=== PATIENT | female | born 1980 | race Caucasian/White ===

== ENCOUNTER 2020-05-03 08:33 | Outpatient (REF) | payer OTHER, SELFPAY ==
[2020-05-03 11:46] LABS: Alanine Aminotransferase 13 U/L (0-31); Alkaline Phosphatase 52 U/L (39-117); Anion Gap 13 (12-20); Aspartate Amino Transferase 12 U/L (5-31); Bilirubin Total 0.4 mg/dL (0.0-1.0); Blood Urea Nitrogen 12 mg/dL (9-16); Carbon Dioxide 28 mmol/L (22-29); Chloride 101 mmol/L (96-108); Cholesterol 219 mg/dL; Estimated Glomerular Filt Rate > 60; Glucose Fasting 97 mg/dL (60-99); HDL Cholesterol 64 mg/dL; LDL Cholesterol Calculated 133 mg/dl; Sodium 138 mmol/L (135-145); Total Protein 7.1 g/dL (6.5-8.0); Triglycerides 113 mg/dL
[2020-05-03 11:48] LABS: Estimated Average Glucose 123 mg/dL; Hemoglobin A1c % 5.9 %
[2020-05-03 12:18] LABS: Microalbum/Creatinine Ratio Ur 4.4 ug/mg cr
[2020-05-03 13:46] LABS: TSH reflex Free T4 0.85 mIU/mL (0.32-4.0)
== END 2020-05-03 08:34 | disposition home or self-care (01) ==
LOC: HO.HMGCLDS 08:33
PROVIDERS: PCP Family Medicine; Visit Provider Family Medicine
DX: Z00.00 Encounter for general adult medical examination without abnormal findings (principal); I10 Essential (primary) hypertension; R73.01 Impaired fasting glucose
CPT/HCPCS: 80053; 80061; 82043; 83036; 84443

== ENCOUNTER 2021-05-24 13:04 | Outpatient (REF) | payer OTHER, SELFPAY ==
--- NOTE | ~2021-05-24 | XR_ITS ---
EXAMINATION: XR CHEST CLINICAL INFORMATION: R05.9 - Cough, unspecified COMPARISON: Report chest radiographs 09/15/2012 TECHNIQUE: 2 views of the chest were obtained. FINDINGS: The lungs are clear. There is no hyperinflation, airspace consolidation, or groundglass opacity. The costophrenic sulci are well-defined. The heart is normal in size. The vascularity is normal. Hilar and mediastinal contours and bony structures are unremarkable. XR/XR chest 2V IMPRESSION: Unremarkable examination.
[2021-05-24 18:02] LABS: Influenza A PCR NEGATIVE (Negative); Influenza B PCR NEGATIVE (Negative); Resp Syncy Virus RNA Qual PCR NEGATIVE (Negative); SARS COV2 PCR INHOUSE NEGATIVE (Negative)
== END 2021-05-24 13:05 | disposition home or self-care (01) ==
LOC: HO.HMGCX 13:04
PROVIDERS: PCP Family Medicine; Visit Provider Physician Assistant Medical
DX: R05.9 Cough, unspecified (principal); Z20.822 Contact with and (suspected) exposure to COVID-19
CPT/HCPCS: 0241U; 36415; 71046

== ENCOUNTER 2021-08-22 09:12 | Outpatient (REF) | payer OTHER, SELFPAY ==
[2021-08-22 11:47] LABS: Alanine Aminotransferase 8 U/L (0-31); Albumin Level 3.8 g/dL (3.5-5.0); Alkaline Phosphatase 47 U/L (39-117); Anion Gap 12 (12-20); Aspartate Amino Transferase 14 U/L (5-31); Bilirubin Total 0.5 mg/dL (0.0-1.0); Blood Urea Nitrogen 13 mg/dL (9-16); Calcium 9.5 mg/dL (8.4-10.2); Carbon Dioxide 28 mmol/L (22-29); Chloride 105 mmol/L (96-108); Estimated Glomerular Filt Rate > 60; Glucose Fasting 103 mg/dL (60-99); Potassium 4.6 mmol/L (3.3-5.1); Sodium 140 mmol/L (135-145); Total Protein 6.8 g/dL (6.5-8.0)
== END 2021-08-22 09:13 | disposition home or self-care (01) ==
LOC: HO.HMGCLDS 09:12
PROVIDERS: PCP Family Medicine; Visit Provider Family Medicine
DX: Z00.00 Encounter for general adult medical examination without abnormal findings (principal)
CPT/HCPCS: 36415; 80053

== ENCOUNTER 2022-01-28 07:51 | Outpatient (REF) | payer OTHER, SELFPAY ==
[2022-01-28 11:08] LABS: MANUAL DIFF FLAG NO
[2022-01-28 11:41] LABS: Alanine Aminotransferase 11 U/L (0-31); Alkaline Phosphatase 48 U/L (39-117); Anion Gap 14 (12-20); Aspartate Amino Transferase 11 U/L (5-31); Bilirubin Total 0.5 mg/dL (0.0-1.0); Blood Urea Nitrogen 14 mg/dL (9-16); Calcium 9.2 mg/dL (8.4-10.2); Carbon Dioxide 27 mmol/L (22-29); Chloride 103 mmol/L (96-108); Cholesterol 222 mg/dL; Estimated Glomerular Filt Rate > 60; Glucose Fasting 103 mg/dL (60-99); HDL Cholesterol 63 mg/dL; LDL Cholesterol Calculated 143 mg/dl; Potassium 4.3 mmol/L (3.3-5.1); Sodium 140 mmol/L (135-145); Triglycerides 83 mg/dL
[2022-01-28 11:53] LABS: Basophils Absolute Auto 0.1 X10*3/uL (0.0-0.2); Basophils Percent Auto 0.6 % (0-2); Eosinophils Absolute Auto 0.2 X10*3/uL (0.0-0.4); Eosinophils Percent Auto 2.8 % (0-4); Hematocrit 42.2 % (37.0-47.0); Imm Gran Abs Auto 0.02 X10*3/uL (0.00-0.03); Imm Gran Pct Auto 0.3 % (0.0-0.4); Lymphocytes Absolute Auto 3.6 X10*3/uL (1.2-4.9); Lymphocytes Percent Auto 45.6 % (20-40); Mean Corpuscular HGB Conc 33.2 g/dl (31.0-35.0); Mean Corpuscular Hemoglobin 29.4 pg (27.0-33.0); Mean Corpuscular Volume 88.7 fL (80.0-98.0); Mean Platelet Volume 9.4 fL (9.4-12.3); Monocytes Absolute Auto 0.6 X10*3/uL (0.1-1.2); Neutrophils Absolute Auto 3.4 x10*3/uL (2.0-8.3); Neutrophils Percent Auto 42.7 % (45-73); Platelet Count 328 X10*3/uL (160-400); Red Blood Count 4.76 X10*6/uL (4.20-5.50); Red Cell Distribution Width 12.8 % (11.0-16.0); White Blood Count 7.9 X10*3/uL (4.8-10.8)
[2022-01-28 11:57] LABS: TSH reflex Free T4 1.49 uIU/mL (0.32-4.0)
[2022-01-28 12:37] LABS: Creatinine Urine 275.04 mg/dL; Microalbum/Creatinine Ratio Ur 3.9 ug/mg cr
== END 2022-01-28 07:52 | disposition home or self-care (01) ==
LOC: HO.HMGCLDS 07:51
PROVIDERS: PCP Family Medicine; Visit Provider Family Medicine
DX: Z00.00 Encounter for general adult medical examination without abnormal findings (principal); I10 Essential (primary) hypertension
CPT/HCPCS: 36415; 80053; 80061; 82043; 84443; 85025

== ENCOUNTER 2022-05-24 08:44 | Outpatient (REF) | payer OTHER, SELFPAY ==
[2022-05-24 12:37] LABS: Alanine Aminotransferase 7 U/L (0-31); Alkaline Phosphatase 47 U/L (39-117); Aspartate Amino Transferase 10 U/L (5-31); Bilirubin Total 0.4 mg/dL (0.0-1.0); Blood Urea Nitrogen 19 mg/dL (9-16); Calcium 9.3 mg/dL (8.4-10.2); Cholesterol 236 mg/dL; Estimated Glomerular Filt Rate > 60; Glucose Fasting 110 mg/dL (60-99); HDL Cholesterol 74 mg/dL; LDL Cholesterol Calculated 139 mg/dl; TSH reflex Free T4 1.44 uIU/mL (0.32-4.0); Total Protein 7.2 g/dL (6.5-8.0); Triglycerides 117 mg/dL
[2022-05-24 13:06] LABS: Anion Gap 17 (12-20); Carbon Dioxide 25 mmol/L (22-29); Chloride 101 mmol/L (96-108); Potassium 4.7 mmol/L (3.3-5.1); Sodium 138 mmol/L (135-145)
[2022-05-24 13:10] LABS: Estimated Average Glucose 105 mg/dL; Hemoglobin A1c % 5.3 %
[2022-05-24 13:15] LABS: Appearance Urine Clear; Color Urine Yellow; Glucose Urine UA Negative (Negative); Leukocyte Esterase Urine Small (1+) (Negative); Nitrite Urine Negative (Negative); Specific Gravity - Urine 1.025 (1.005-1.025); UMIC TRIGGER UA YES; Urine Blood Negative (Negative); Urine Ketones Negative (Negative); Urine Protein Negative (Neg-Trace)
[2022-05-24 13:21] LABS: Bacteria Urine 1+ (None Seen); Hyaline Casts Urine 0-2 /LPF (0-2); RBC Urine 0-2 /HPF (0-2)
== END 2022-05-24 08:45 | disposition home or self-care (01) ==
LOC: HO.HMGCLDS 08:44
PROVIDERS: PCP Family Medicine; Visit Provider Family Medicine
DX: Z00.00 Encounter for general adult medical examination without abnormal findings (principal); R73.01 Impaired fasting glucose; I10 Essential (primary) hypertension
CPT/HCPCS: 36415; 80053; 80061; 81001; 82043; 83036; 84443

== ENCOUNTER 2022-07-12 09:00 | Outpatient (REF) | payer OTHER, SELFPAY ==
[2022-07-12 11:58] LABS: Influenza A PCR NEGATIVE (Negative); Influenza B PCR NEGATIVE (Negative); Resp Syncy Virus RNA Qual PCR NEGATIVE (Negative); SARS COV2 PCR INHOUSE NEGATIVE (Negative)
== END 2022-07-12 09:01 | disposition home or self-care (01) ==
LOC: HO.LAB 09:00
PROVIDERS: Visit Provider Family Medicine
DX: Z20.822 Contact with and (suspected) exposure to COVID-19 (principal); R53.83 Other fatigue
CPT/HCPCS: 0241U

== ENCOUNTER 2022-07-30 16:46 | Outpatient (REF) | payer OTHER, SELFPAY ==
[2022-07-30 17:33] LABS: Influenza A PCR NEGATIVE (Negative); Influenza B PCR NEGATIVE (Negative); Resp Syncy Virus RNA Qual PCR NEGATIVE (Negative); SARS COV2 PCR INHOUSE NEGATIVE (Negative)
== END 2022-07-30 16:47 | disposition home or self-care (01) ==
LOC: HO.LNP 16:46
PROVIDERS: Visit Provider Nurse Practitioner Family
DX: Z20.822 Contact with and (suspected) exposure to COVID-19 (principal); R09.89 Other specified symptoms and signs involving the circulatory and respiratory systems
CPT/HCPCS: 0241U

== ENCOUNTER → 2022-11-06 12:03 | Outpatient (BNVA) | payer OTHER, SELFPAY | PROVIDERS: PCP Family Medicine; Visit Provider Orthopaedic Surgery | DX: M65.4 Radial styloid tenosynovitis [de Quervain] (principal) | CPT/HCPCS: 99202; J1100 ==

== ENCOUNTER 2023-02-27 10:30 | Outpatient (AMB) | payer OTHER, SELFPAY ==
--- NOTE | 2023-02-27 10:32 | A.OFFPC_ITS ---
Vital Signs 02/27/23 10:33 Height 5 ft 7 in Weight 205 lb BMI 32.1 BP 112/70 Blood Pressure Location Rt brachial Position Sitting Respiration 13 Pulse 84 Pulse Source Pulse Oximeter Temp 97.6 F Temp Source Temporal Artery Scan Pulse Oximetry (%) 99 Oxygen Delivery Method Room Air Intake Visit Reasons: follow bp,seen at [facility],cold symptoms Intake Note: Patient states that she was told that she has pneumonia. Patient states that she hasn't been sleeping due to the meds and states that she doesn't feel any better. 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 Accompanied by: Self / Same As Patient Allergies cefaclor [From CECLOR] Allergy (Intermediate, Verified 02/27/23 10:42) RASH, hives Sulfa (Sulfonamide Antibiotics) [SULFA (SULFONAMIDE ANTIBIOTICS)] Allergy (Intermediate, Verified 02/27/23 10:42) RASH, hives aspartame Adverse Reaction (Severe, Verified 02/27/23 10:42) Blister lactose [LACTOSE] Adverse Reaction (Unknown, Verified 02/27/23 10:42) DIARRHEA lanolin Allergy (Unknown, Uncoded 11/06/22 12:32) rash Tobacco use date assessed: 07/12/22 Dental Screening Dental Screen Date: 02/27/23 Did you have a dental visit in the last 12 months?: Yes Did you have a dental problem in the last 6 months where you did not have access to dental care?: No Was dental information given to patient?: Patient has dentist HPI HPI Comments History of Present Illness Details 42-year-old female presents for [facility] follow-up. She was last evaluated by her PCP in October. She presented to [facility] urgent care on 02/24/2023 with persistent cough for two weeks. She was diagnosed and treated for upper respiratory tract infection and community acquired pneumonia. COVID test was negative. Chest x-ray done but result not available on documentation. She was prescribed doxycycline, levofloxacin, prednisone, albuterol inhaler, and benzonatate. She states she has been taking her medications as prescribed improvement of her cough. However, she continues to experience head congestion, frontal headache, poor sleep, and fatigue. 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 [facility] Medical History Pre-diabetes Surgical History No pertinent past surgical history Family History Mother No problems noted. Father No problems noted. 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 Aleksandr Clemens, Almaz Levy, Otoniel Renae and colleagues, with an educational mil from [employer]. Review of Systems Const Details: Const Denies chills, Denies fatigue, Denies fever(s), Denies headache(s) and Denies weakness ENT Reports as per HPI Card Denies chest pain, Denies lightheadedness, Denies dyspnea and Denies other (Palpitations) Resp Reports cough, Denies dyspnea, Denies wheezing and Denies other ( shortness of breath) GI Denies abdominal pain, Denies melena, Denies hematochezia, Denies change in bowel habits, Denies dyspepsia and Denies nausea Denies hematuria and Denies dysuria Musc Denies abnormal gait, Denies myalgias, Denies arthralgias, Denies numbness and Denies tingling Skin/Breast Denies rash, Denies unusual bruising and Denies wounds Neuro Denies abnormal gait, Denies dizziness, Denies headache(s), Denies memory loss, Denies numbness, Denies Sensory deficit (Neuro), Denies tingling and Denies weakness Psych Denies anxiety, Denies depression, Denies memory loss Endo Denies cold intolerance, Denies fatigue, Denies heat intolerance, Denies polydipsia and Denies polyuria Aller/Immun Denies wheezing Physical exam (Primary Care) Vital Signs: Last Vital Signs Temp 97.6 F 02/27/23 10:33 Pulse 84 02/27/23 10:33 Resp 13 02/27/23 10:33 BP 112/70 02/27/23 10:33 Pulse Ox 99 02/27/23 10:33 Oxygen Delivery Method Room Air 02/27/23 10:33 BMI result Body Mass Index 32.1 Tobacco/Smoking Status: Tobacco use Status Tobacco use date assessed 07/12/22 02/27/23 10:45 Patient Tobacco Use Status Current everyday Tobacco 02/27/23 10:45 e-Cigarette/Vaping Use Never Used 02/27/23 10:45 Thrive Assessment: Date of Thrive Assessment Date Thrive assessed 07/12/22 02/27/23 10:45 Const Other: General: no acute distress and well developed Nutritional Appearance: well nourished Orientation/consciousness: patient oriented x3 HENMT Head is normocephalic Bilateral ear canal and TM are normal Nasal turbinates and oropharynx are pink and moist Frontal sinus tender to palpation. Maxillary sinus nontender to palpation No auricular or cervical lymphadenopathy Eyes General: appearance normal, both eyes and all related structures Pupils: Equal, round and reactive pupils present EOM: EOMs intact bilaterally Resp Effort & Inspection: normal respiratory effort Auscultation: clear to auscultation bilaterally Cardio Rate: regular rate Rhythm: regular rhythm Heart sounds: S1 normal heart sound present, S2 normal heart sound present, no gallops, no murmurs and no rubs GI Palpation (GI): No Abdominal aortic bruit present, Soft to palpation, nontender, No hepatosplenomegaly present and No Rebound tenderness present Auscultation: normal bowel sounds General: Yes no CVA tenderness Back/Spine/Pelvis Back: no CVA tenderness Cervical Spine: cervical ROM normal and No Cervical spine tenderness Thoracic/Lumbar Spine: thoraco-lumbar ROM normal, No pain with thoraco-lumbar ROM, No thoracic spinal tenderness and No lumbar spinal tenderness Extrem General: Yes normal to inspection, No edema and No calf tenderness Skin General: warm and dry. Normal skin color. Normal skin turgor Lesions: no lesions Rashes: no rashes Trauma: no lacerations or abrasions Wounds: no wounds Nails: normal Neuro General: patient oriented x3, gait normal and no focal neuro deficit Cranial nerves: Yes Equal, round and reactive pupils present Cognition (Neuro): normal cognition Gait exam (Neuro): Normal gait present Sensory Exam: No Sensory deficit (Neuro) Psych Appearance: grossly normal Affect: normal affect Attitude: cooperative Thought process: Normal thought process present Assessment and Plan Assessment & Plan (1) Essential hypertension: Code(s): I10 - Essential (primary) hypertension Plan: Blood pressure is controlled, 112/70, within goal of less than 140/90 Continue with current treatment regimen Low-sodium diet encouraged Follow-up with PCP in 4 months Return sooner with symptoms or concerns Verbalized understanding and agreed with treatment plan. (2) Upper respiratory infection: Code(s): J06.9 - Acute upper respiratory infection, unspecified Qualifiers: URI type: unspecified viral URI Qualified Code(s): J06.9 - Acute upper respiratory infection, unspecified Plan: Tenderness to palpation of the frontal sinus Lung sounds clear bilaterally Continue with current treatment regimen Adequate hydration and rest encouraged Excuse letter for given until next Friday Return with new or worsening symptoms Verbalized understanding and agreed with treatment plan. Coding Level of Care Code Est Pt Level 3 (21941) Diagnoses Essential hypertension I10 Viral upper respiratory tract infection J06.9 URI type: unspecified viral URI
[2023-02-27 10:33] VITALS: BP 112/70; PULSE 84; RESP 13; TEMP 36.4; O2SAT 99; BMI 32.1
== END 2023-02-27 11:13 | disposition home or self-care (01) ==
PROVIDERS: PCP Family Medicine; Visit Provider Nurse Practitioner Family
DX: I10 Essential (primary) hypertension (principal); J06.9 Acute upper respiratory infection, unspecified
CPT/HCPCS: 99213

== ENCOUNTER 2023-06-30 09:18 | Outpatient (AMB) | payer OTHER, SELFPAY ==
[2023-06-30 09:19] VITALS: BP 110/62; PULSE 82; RESP 13; O2SAT 98; BMI 31.9
--- NOTE | 2023-06-30 09:19 | MHC.PC.OV ---
Vital Signs 06/30/23 09:19 Height 5 ft 7 in Weight 204 lb BMI 31.9 BP 110/62 Blood Pressure Location Lt brachial Position Sitting Respiration 13 Pulse 82 Pulse Source Pulse Oximeter Pulse Oximetry (%) 98 Oxygen Delivery Method Room Air Intake Visit Reasons: F/up HTN Intake Note: Patient is here for a follow up of hypertension. Patient reports she has pain in bilateral arms and shoulders. Patient reports she has noticed bruising on bilateral thighs. 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 Accompanied by: Self / Same As Patient Allergies cefaclor [From CECLOR] Allergy (Intermediate, Verified 06/30/23 09:25) RASH, hives Sulfa (Sulfonamide Antibiotics) [SULFA (SULFONAMIDE ANTIBIOTICS)] Allergy (Intermediate, Verified 06/30/23 09:25) RASH, hives aspartame Adverse Reaction (Severe, Verified 06/30/23 09:25) Blister lactose [LACTOSE] Adverse Reaction (Unknown, Verified 06/30/23 09:25) DIARRHEA lanolin Allergy (Unknown, Uncoded 06/30/23 09:25) rash Medication List - Last Reconciled 06/30/23 by Marquise Zarate MD albuterol sulfate 90 mcg/actuation 2 puffs inhalation Q6H PRN loratadine (Allergy Relief (loratadine)) 10 mg PO DAILY melatonin 3 mg PO BEDTIME PRN metoprolol ta-hydrochlorothiaz 50-25 mg 1 tab PO DAILY norgestimate-ethinyl estradiol 0.18/0.215/0.25 mg-35 mcg (28) (Tri-Linyah) 1 tab PO DAILY Tobacco use date assessed: 07/12/22 HPI F/up HTN HPI Details 42 y/o female presents to f/u hypertension. Blood pressure today 110/62. She is on metoprolol ta-hydrochlorothiazide 50-25mg daily. Pt reports pain in bilateral arms and shoulders. She reports she has been using ibuprofen and a heating pad for relief. She feels she has overused/strained her arms/shoulders too much, She reports bruising on thighs. bilaterally. She does not remember hitting her legs. She denies any nose bleeds, excessive bleeding. A1c today 06/30/23 is 5.7%. [facility] Medical History Pre-diabetes Surgical History No pertinent past surgical history Family History Mother No problems noted. Father No problems noted. 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 Aleksandr Clemens, Almaz Levy, Otoniel Renae and colleagues, with an educational mil from [employer]. Review of Systems Const Denies chills, Denies fatigue, Denies fever(s), Denies headache(s) and Denies weakness ENT Denies dizziness and Denies headache(s) Card Denies chest pain, Denies lightheadedness, Denies dyspnea and Denies other (Palpitations) Resp Denies cough, Denies dyspnea, Denies wheezing and Denies other ( shortness of breath) Musc Denies numbness and Denies tingling Neuro Denies dizziness, Denies headache(s), Denies numbness, Denies tingling, Denies paresthesias and Denies weakness Psych Denies anxiety and Denies depression Endo Denies fatigue Aller/Immun Denies wheezing Physical exam (Primary Care) Vital Signs: Last Vital Signs Pulse 82 06/30/23 09:19 Resp 13 06/30/23 09:19 BP 110/62 06/30/23 09:19 Pulse Ox 98 06/30/23 09:19 Oxygen Delivery Method Room Air 06/30/23 09:19 BMI result Body Mass Index 31.9 Tobacco/Smoking Status: Tobacco use Status Tobacco use date assessed 07/12/22 06/30/23 09:26 Patient Tobacco Use Status Current everyday Tobacco 06/30/23 09:26 e-Cigarette/Vaping Use Never Used 06/30/23 09:26 Thrive Assessment: Date of Thrive Assessment Date Thrive assessed 07/12/22 06/30/23 09:26 Const General: no acute distress and well developed Nutritional Appearance: well nourished and obese Orientation/consciousness: patient oriented x3 HENMT Head: Yes normocephalic and Yes atraumatic Eyes General: appearance normal, both eyes and all related structures Pupils: Equal, round and reactive pupils present EOM: EOMs intact bilaterally Resp Effort & Inspection: normal respiratory effort Auscultation: clear to auscultation bilaterally Cardio Rate: regular rate Rhythm: regular rhythm Heart sounds: S1 normal heart sound present, S2 normal heart sound present, no gallops, no murmurs and no rubs Neuro General: patient oriented x3 and gait normal Cranial nerves: Yes Equal, round and reactive pupils present Psych Affect: normal affect Results AMB Hemoglobin A1c AMB Hemoglobin A1c 5.7 % Last Edit by Tania Lane CMA on 06/30/23 10:15 Assessment and Plan Assessment & Plan (1) Essential hypertension: Code(s): I10 - Essential (primary) hypertension Plan: Blood?pressure?is?well?controlled.??Goal?is?less?than?140/90 Continue?current?medication?regimen (2) Pre-diabetes: Code(s): R73.03 - Prediabetes Plan: History?of?pre?diabetes. A1c: 5.7 Encouraged?diet?low?in?sugars?and?starches (3) Bilateral arm pain: Code(s): M79.601 - Pain in right arm; M79.602 - Pain in left arm Plan: Bilateral?arm?and?shoulder?pain?after?shoveling?snow?yesterday. Likely?overuse/strain Try?meloxicam?and?cyclobenzaprine?x4?days (4) Bruising: Code(s): T14.8XXA - Other injury of unspecified body region, initial encounter Plan: Tiny?bruises?on?anterior?thighs?without?expansion?or?tracking. No?other?excessive?bleeding?such?as?nosebleeds?or?bleeding?from?her?gums?after?brushing?her?teeth Reassured?patient Orders: Orders Lipid Panel Today Z00.00 - Encounter for general adult medical examination without abnormal findings UA and rflx microscopic Today Z00.00 - Encounter for general adult medical examination without abnormal findings Complete Blood Count Auto Diff Today Z00.00 - Encounter for general adult medical examination without abnormal findings Comprehensive [place]. Panel Fast Today Z00.00 - Encounter for general adult medical examination without abnormal findings Microalbumin, Random (w Creat) Today I10 - Essential (primary) hypertension TSH reflex Free T4 Today Z00.00 - Encounter for general adult medical examination without abnormal findings AMB Hemoglobin A1c Today E11.9 - Type 2 diabetes mellitus without complications Medications: New meloxicam 15 mg PO DAILY 30 days 30 tabs 2RF cyclobenzaprine 10 mg PO BID 4 days PRN 8 tabs 0RF muscle spasm Coding Level of Care Code Est Pt Level 4 (81437) Diagnoses Essential hypertension I10 Pre-diabetes R73.03 Bilateral arm pain M79.601; M79.602 Bruising T14.8XXA
== END 2023-06-30 10:30 | disposition home or self-care (01) ==
PROVIDERS: PCP Family Medicine; Visit Provider Family Medicine
DX: I10 Essential (primary) hypertension (principal); R73.03 Prediabetes; M79.601 Pain in right arm; M79.602 Pain in left arm; T14.8XXA Other injury of unspecified body region, initial encounter; E11.9 Type 2 diabetes mellitus without complications
CPT/HCPCS: 83036; 99214

== ENCOUNTER 2023-08-25 10:49 | Outpatient (REF) | payer OTHER, SELFPAY ==
[2023-08-25 13:25] LABS: Appearance Urine Cloudy; Color Urine Yellow; Glucose Urine UA Negative (Negative); Leukocyte Esterase Urine Moderate (2+) (Negative); Nitrite Urine Negative (Negative); PH 5.5 (5.0-9.0); UMIC TRIGGER UA YES; Urine Blood Moderate (2+) (Negative); Urine Ketones Negative (Negative); Urine Protein Negative (Neg-Trace)
[2023-08-25 13:26] LABS: MANUAL DIFF FLAG NO
[2023-08-25 13:38] LABS: Basophils Absolute Auto 0.1 X10*3/uL (0.0-0.2); Basophils Percent Auto 0.6 % (0-2); Eosinophils Absolute Auto 0.2 X10*3/uL (0.0-0.4); Hematocrit 44.4 % (37.0-47.0); Hemoglobin 14.9 g/dl (12.0-16.0); Imm Gran Abs Auto 0.03 X10*3/uL (0.00-0.03); Imm Gran Pct Auto 0.4 % (0.0-0.4); Lymphocytes Absolute Auto 3.3 X10*3/uL (1.2-4.9); Mean Corpuscular HGB Conc 33.6 g/dl (31.0-35.0); Mean Corpuscular Hemoglobin 30.5 pg (27.0-33.0); Mean Platelet Volume 9.3 fL (9.4-12.3); Monocytes Absolute Auto 0.7 X10*3/uL (0.1-1.2); Monocytes Percent Auto 7.7 % (2-11); Neutrophils Absolute Auto 4.3 x10*3/uL (2.0-8.3); Neutrophils Percent Auto 50.3 % (45-73); Platelet Count 378 X10*3/uL (160-400); Red Blood Count 4.88 X10*6/uL (4.20-5.50); Red Cell Distribution Width 12.9 % (11.0-16.0); White Blood Count 8.5 X10*3/uL (4.8-10.8)
[2023-08-25 14:00] LABS: Bacteria Urine 1+ (None Seen); Hyaline Casts Urine 0-2 /LPF (0-2); RBC Urine 0-2 /HPF (0-2)
[2023-08-25 14:22] LABS: Alanine Aminotransferase 11 U/L (0-31); Albumin Level 3.9 g/dL (3.5-5.0); Alkaline Phosphatase 54 U/L (39-117); Anion Gap 10 (12-20); Aspartate Amino Transferase 12 U/L (5-31); Bilirubin Total 0.5 mg/dL (0.0-1.0); Blood Urea Nitrogen 14 mg/dL (9-16); Calcium 9.3 mg/dL (8.4-10.2); Carbon Dioxide 28 mmol/L (22-29); Chloride 104 mmol/L (96-108); Cholesterol 215 mg/dL (<200); Estimated Glomerular Filt Rate > 60; Glucose Fasting 94 mg/dL (60-99); HDL Cholesterol 66 mg/dL (>40); LDL Cholesterol Calculated 134 mg/dL (<100); Sodium 138 mmol/L (135-145); TSH reflex Free T4 0.75 uIU/mL (0.32-4.0); Triglycerides 75 mg/dL (<150)
[2023-08-25 14:31] LABS: Creatinine Urine 80.41 mg/dL; Microalbum/Creatinine Ratio Ur 24.8 ug/mg cr (<30)
== END 2023-08-25 10:50 | disposition home or self-care (01) ==
LOC: HO.HMGCLDS 10:49
PROVIDERS: PCP Family Medicine; Visit Provider Family Medicine
DX: Z00.00 Encounter for general adult medical examination without abnormal findings (principal); I10 Essential (primary) hypertension
CPT/HCPCS: 36415; 80053; 80061; 81001; 82043; 82570; 84443; 85025

== ENCOUNTER 2023-12-31 08:39 | Outpatient (AMB) | payer OTHER, SELFPAY ==
--- NOTE | 2023-12-31 08:44 | MHC.PC.OV ---
Vital Signs 12/31/23 08:45 Height 5 ft 7 in Weight 201 lb 6 oz BMI 31.5 BP 106/68 Blood Pressure Location Rt brachial Position Sitting Respiration 14 Pulse 71 Pulse Source Pulse Oximeter Temp 97.6 F Temp Source Temporal Artery Scan Pulse Oximetry (%) 98 Oxygen Delivery Method Room Air Intake Visit Reasons: CPE with f/u labs and health maint. Intake Note: Patient states that toe nails have been growing weird and look a little weird. Umbrella Cutter Required: No Accompanied by: Self / Same As Patient Allergies cefaclor [From CECLOR] Allergy (Intermediate, Verified 12/31/23 08:53) RASH, hives Sulfa (Sulfonamide Antibiotics) [SULFA (SULFONAMIDE ANTIBIOTICS)] Allergy (Intermediate, Verified 12/31/23 08:53) RASH, hives aspartame Adverse Reaction (Severe, Verified 12/31/23 08:53) Blister lactose [LACTOSE] Adverse Reaction (Unknown, Verified 12/31/23 08:53) DIARRHEA lanolin Allergy (Unknown, Uncoded 06/30/23 09:25) rash Medication List - Last Reconciled 12/31/23 by Marquise Zarate MD albuterol sulfate 90 mcg/actuation 2 puffs inhalation Q6H PRN cyclobenzaprine 10 mg PO BID PRN 4 days loratadine (Allergy Relief (loratadine)) 10 mg PO DAILY melatonin 3 mg PO BEDTIME PRN meloxicam 15 mg PO DAILY 30 days metoprolol ta-hydrochlorothiaz 50-25 mg 1 tab PO DAILY norgestimate-ethinyl estradiol 0.18/0.215/0.25 mg-35 mcg (28) (Tri-Linyah) 1 tab PO DAILY Tobacco use date assessed: 07/12/22 Dental Screening Dental Screen Date: 12/31/23 Did you have a dental visit in the last 12 months?: Yes Did you have a dental problem in the last 6 months where you did not have access to dental care?: No Was dental information given to patient?: Patient has dentist HPI CPE with f/u labs and health maint. HPI Details 43 y/o female presents for a CPE with f/u labs and health maintenance. Labs were drawn 08/25/23. Reviewed labs with pt. Triglycerides 75. TC 215. LDL 134. HDL 66. A1c today 12/31/23 5.7%. She has complaints of a fungal infection of her nail. [facility] Medical History Pre-diabetes Surgical History No pertinent past surgical history Family History Mother No problems noted. Father No problems noted. Social History Housing: House Alcohol intake: never Patient Tobacco Use Status: Current everyday Tobacco user Cigarette Packs Per Day: 0.5 Cigarettes Per Day: 10 Years Smoked: 16 e-Cigarette/Vaping Use: Never Used Second Hand Smoke Exposure: No service: No Current occupational status: employed Current occupation: [employer] Current occupational exposures/hazards: No Cognitive needs: No Hearing needs: No Vision needs: No Questionnaire PHQ-9 Over the last 2 weeks, how often have you been bothered by any of the following problems? 1. Little interest or pleasure in doing things: not at all 2. Feeling down, depressed, or hopeless: not at all 3. Trouble falling or staying asleep, or sleeping too much: not at all 4. Feeling tired or having little energy: not at all 5. Poor appetite or overeating: not at all 6. Feeling bad about yourself - or that you are a failure or have let yourself or your family down: not at all 7. Trouble concentrating on things, such as reading the newspaper or watching television: not at all 8. Moving or speaking so slowly that other people could have noticed. Or the opposite - being so fidgety or restless that you have been moving around a lot more than usual: not at all 9. Thoughts that you would be better off or of hurting yourself in some way: not at all Total score: 0 Depression Screening Interpretation: Negative Depression Screening Done: Yes 54148 - PHQ-9 Billing: Yes Source: Developed by Drs. Aleksandr Clemens, Almaz Levy, Otoniel Renae and colleagues, with an educational mil from [employer]. Thrive Questionnaire Date Thrive assessed: 12/31/23 I am a: Patient What is your living situation today?: I have a steady place to live Within the past 12 months, did the food you bought not last and you didn't have the money to get more?: Never true Within the past 12 months, did you worry whether your food would run out before you got money to buy more?: Never true Do you have trouble paying for medicines?: No Do you have trouble getting transportation to medical appointments?: No Do you have trouble paying your heating and electricity bill?: No Do you have trouble taking care of your child, family member or friend?: No Do you have trouble with day-to-day activities such as bathing, preparing meals, shopping, managing finances, etc.?: No Are you currently unemployed and looking for a job?: No Please select the resources that you would like help with: None Currently or been in a relationship where the following occur: No concerns reported THRIVE Score: 0 AUDIT C Alcohol Use Questionnaire (AUDIT-C) 1. How often do you have a drink containing alcohol?: Never 3. How often do you have six or more drinks on one occasion?: Never Total Score: 0 CONOR-7 AMB Questionnaire CONOR-7 Date CONOR - 7 assessed: 12/31/23 Feeling nervous, anxious, or on edge: 0 = Not at all Not being able to stop or control worryin = Not at all Worrying too much about different things: 0 = Not at all Trouble relaxin = Not at all Being so restless that it is hard to sit still: 0 = Not at all Becoming easily annoyed or irritable: 0 = Not at all Feeling afraid as if something awful might happen: 0 = Not at all Total CONOR-7 score (0-4 normal; 5-9 mild; 10-14 moderate; 15-21 severe): 0 Source: Developed by Drs. Aleksandr Clemens, Almaz Levy, Otoniel Renae and colleagues, with an educational mil from [employer]. CONOR-7 Assessment Billing CONOR-7 Assessment Tool: CONOR-7 Assessment 41867 Review of Systems Const Denies chills, Denies fatigue, Denies fever(s), Denies headache(s) and Denies weakness Eyes Denies change in vision ENT Denies dizziness, Denies headache(s), Denies hearing loss, Denies nasal congestion, Denies sinus pain, Denies sinus pressure and Denies sore throat Card Denies chest pain, Denies lightheadedness, Denies dyspnea and Denies other (palpitations) Resp Denies cough, Denies dyspnea and Denies wheezing GI Denies abdominal pain, Denies melena, Denies hematochezia, Denies change in bowel habits, Denies dyspepsia and Denies nausea Denies hematuria and Denies dysuria Musc Denies abnormal gait, Denies myalgias, Denies arthralgias, Denies numbness and Denies tingling Skin/Breast Denies rash, Denies unusual bruising and Denies wounds Neuro Denies abnormal gait, Denies dizziness, Denies headache(s), Denies memory loss, Denies numbness, Denies Sensory deficit (Neuro), Denies tingling and Denies weakness Psych Denies anxiety, Denies depression and Denies memory loss Endo Denies cold intolerance, Denies fatigue, Denies heat intolerance, Denies polydipsia and Denies polyuria Willy/Lymph Denies easy bleeding and Denies easy bruising Aller/Immun Denies wheezing Physical exam (Primary Care) Vital Signs: Last Vital Signs Temp 97.6 F 12/31/23 08:45 Pulse 71 12/31/23 08:45 Resp 14 12/31/23 08:45 BP 106/68 12/31/23 08:45 Pulse Ox 98 12/31/23 08:45 Oxygen Delivery Method Room Air 12/31/23 08:45 BMI result Body Mass Index 31.5 Tobacco/Smoking Status: Tobacco use Status Tobacco use date assessed 07/12/22 12/31/23 08:44 Patient Tobacco Use Status Current everyday Tobacco 12/31/23 08:44 e-Cigarette/Vaping Use Never Used 12/31/23 08:44 PHQ-9: PHQ-9 Score PHQ-9: Total score 0 12/31/23 09:33 Depression Screening Interpretation: Negative Thrive Assessment: Date of Thrive Assessment Date Thrive assessed 12/31/23 12/31/23 08:55 Currently or been in a relationship where the following occur: No concerns reported Const General: no acute distress, well developed, alert and awake Nutritional Appearance: well nourished Orientation/consciousness: patient oriented x3 HENMT Head: Yes normocephalic and Yes atraumatic Ears: hearing grossly normal bilaterally and TM's normal bilaterally General nose exam: Normal external nose present and Normal nares present Mouth: Normal oral and palatal mucosa present and moist mucous membranes Teeth and gingiva: dentition normal Throat: Yes posterior oropharynx normal Eyes General: appearance normal, both eyes and all related structures Pupils: Equal, round and reactive pupils present and Pupil accommodation reflex normal EOM: EOMs intact bilaterally Neck Neck: Yes normal visual inspection, Yes no lymphadenopathy and Yes trachea midline Thyroid: Thyroid normal Carotids: no bruits Lymphatic: no lymphadenopathy noted Chest Chest palpation & inspection: normal inspection of the chest Resp Effort & Inspection: normal respiratory effort Auscultation: clear to auscultation bilaterally Cardio Rate: regular rate Rhythm: regular rhythm Heart sounds: S1 normal heart sound present, S2 normal heart sound present, no gallops, no murmurs and no rubs Bruits: no abdominal aortic bruits and no carotid bruits GI Palpation (GI): No Abdominal aortic bruit present, Soft to palpation, nontender, No hepatosplenomegaly present and No Rebound tenderness present Auscultation: normal bowel sounds General: Yes no CVA tenderness Back/Spine/Pelvis Back: no CVA tenderness Cervical Spine: cervical ROM normal and No Cervical spine tenderness Thoracic/Lumbar Spine: thoraco-lumbar ROM normal, No pain with thoraco-lumbar ROM, No thoracic spinal tenderness and No lumbar spinal tenderness Skin Lesions: no lesions Rashes: no rashes Trauma: no lacerations or abrasions Wounds: no wounds Nails: normal Neuro General: patient oriented x3 Cranial nerves: Yes Equal, round and reactive pupils present Cognition (Neuro): normal cognition Gait exam (Neuro): Normal gait present Motor exam (neuro): 5/5 motor strength present throughout Sensory Exam: No Sensory deficit (Neuro) Deep tendon reflexes (DTR's): Right patellar reflex intensity grade: 2+ and Left patellar reflex intensity grade: 2+ Extrem General: Yes normal to inspection and No edema Psych Appearance: grossly normal Affect: normal affect Attitude: cooperative Thought process: Normal thought process present Results AMB Hemoglobin A1c AMB Hemoglobin A1c 5.7 % Last Edit by DEANN Camejo on 12/31/23 09:21 Results Reviewed Results Reviewed: Laboratory Last Values Hgb A1c (Clinic) 5.7 % (4.0-6.0) 12/31/23 09:02 Assessment and Plan Assessment & Plan (1) Adult general medical exam: Code(s): Z00.00 - Encounter for general adult medical examination without abnormal findings Plan: 43-year-old?female?presents?for?complete?physical?exam Encouraged?healthy?diet?with?active?lifestyle?and?plenty?of?exercise (2) Pre-diabetes: Code(s): R73.03 - Prediabetes Plan: A1c?remains?at?5.7%;?early?pre?diabetes?range Encouraged?diet?low?in?sugars?and?starches Encouraged?exercise?and?weight?control (3) Essential hypertension: Code(s): I10 - Essential (primary) hypertension Plan: Blood?pressure?is?controlled.??Goal?is?less?than?140/90 Continue?current?medication (4) Fungal infection of nail: Code(s): B35.1 - Tinea unguium Plan: Avoid?excess?moisture Will?give?her?a?script?for?terbinafine?cream (5) Hypercholesterolemia: Code(s): E78.00 - Pure hypercholesterolemia, unspecified Plan: LDL?cholesterol?is?above?goal Encouraged?a?diet?lower?in?saturated?fats?and?cholesterol. Good?HDL?ratios. Will?continue?to?monitor (6) Breast cancer screening by mammogram: Code(s): Z12.31 - Encounter for screening mammogram for malignant neoplasm of breast Plan: Up-to-date.??No?evidence?of?malignancy?with?last?mammogram Continue?annual?screening (7) Screening for colon cancer: Code(s): Z12.11 - Encounter for screening for malignant neoplasm of colon Plan: Will?begin?screening?at?age?45.??No?family?history?of?colon?cancer (8) Screening for cervical cancer: Code(s): Z12.4 - Encounter for screening for malignant neoplasm of cervix Plan: Followed?by?emergency medicine physician assistant?at?[facility] Up-to-date Orders: Orders AMB Hemoglobin A1c Today R73.03 - Prediabetes Medications: New terbinafine HCl 1% (Antifungal (terbinafine)) 1 appl topical BID 14 days 30 grams 1RF Refilled metoprolol ta-hydrochlorothiaz 50-25 mg 1 tab PO DAILY 90 tabs 3RF Coding Level of Care Code Est Pt Level 3 (61789) Est Pt Prev Care 40-64y(27445) Diagnoses Adult general medical exam Z00.00 Pre-diabetes R73.03 Essential hypertension I10 Fungal infection of nail B35.1 Hypercholesterolemia E78.00 Breast cancer screening by mammogram Z12.31 Screening for colon cancer Z12.11 Screening for cervical cancer Z12.4 Additional Codes CONOR-7 Assessment Billing - CONOR-7 Assessment Tool: CONOR-7 Assessment 24246 ([id number])
[2023-12-31 08:45] VITALS: BP 106/68; PULSE 71; RESP 14; TEMP 36.4; O2SAT 98; BMI 31.5
== END 2023-12-31 09:52 | disposition home or self-care (01) ==
PROVIDERS: PCP Family Medicine; Visit Provider Family Medicine
DX: Z00.00 Encounter for general adult medical examination without abnormal findings (principal); B35.1 Tinea unguium; R73.03 Prediabetes; I10 Essential (primary) hypertension; E78.00 Pure hypercholesterolemia, unspecified; Z12.31 Encounter for screening mammogram for malignant neoplasm of breast; Z12.11 Encounter for screening for malignant neoplasm of colon
CPT/HCPCS: 83036; 99213; 99396

== ENCOUNTER 2024-03-08 08:05 | Outpatient (AMB) | payer OTHER, SELFPAY ==
[2024-03-08 08:14] VITALS: BP 120/80; PULSE 80; TEMP 36.8; O2SAT 97; BMI 30.7
--- NOTE | 2024-03-08 08:14 | AM.OFFWIN_ITS ---
Intake Vital Signs 03/08/24 08:14 Height 5 ft 7 in Weight 196 lb BMI 30.7 BP 120/80 Blood Pressure Location Rt brachial Position Sitting Pulse 80 Pulse Source Pulse Oximeter Temp 98.3 F Temp Source Oral Pulse Oximetry (%) 97 Oxygen Delivery Method Room Air Intake Visit Reasons: EP Cough, sore throat, fever Intake Note: Patient here for cough, sore throat, fever,fatigue and dizziness. Patient Tobacco Use Status: Current everyday Tobacco user Allergies cefaclor [From CECLOR] Allergy (Intermediate, Verified 03/08/24 08:16) RASH, hives Sulfa (Sulfonamide Antibiotics) [SULFA (SULFONAMIDE ANTIBIOTICS)] Allergy (Intermediate, Verified 03/08/24 08:16) RASH, hives aspartame Adverse Reaction (Severe, Verified 03/08/24 08:16) Blister lactose [LACTOSE] Adverse Reaction (Unknown, Verified 03/08/24 08:16) DIARRHEA lanolin Allergy (Unknown, Uncoded 03/08/24 08:16) rash Do you need a note to return to daycare/school/sports/work: No HPI HPI Comments History of Present Illness Details Patient is a 43-year-old female complaining of cough, head congestion, sore throat, fever with a T-max of 100.9 degrees F, dizziness, chest pressure and fatigue for 2 days. She denies any nausea vomiting diarrhea or shortness of breath. She has tried taking ibuprofen with minimal improvement. She states she does not have a inhaler at home and has never used 1 before. She states that she thinks she had the original strain of COVID which damaged her lungs and makes her more susceptible to getting pneumonia every time she is sick. She states she does not have a history of asthma or COPD, she does not have any sick contacts at home. [facility] Medical History Pre-diabetes Surgical History No pertinent past surgical history Family History Mother No problems noted. Father No problems noted. Social History Housing: House Alcohol intake: never Patient Tobacco Use Status: Current everyday Tobacco user Cigarette Packs Per Day: 0.5 Cigarettes Per Day: 10 Years Smoked: 16 e-Cigarette/Vaping Use: Never Used Second Hand Smoke Exposure: No service: No Current occupational status: employed Current occupation: [employer] Current occupational exposures/hazards: No Cognitive needs: No Hearing needs: No Vision needs: No Review of Systems Const All systems reviewed & are unremarkable except as noted in HPI and below Physical Exam Vital Signs: Last Vital Signs Temp 98.3 F 03/08/24 08:14 Pulse 80 03/08/24 08:14 BP 120/80 03/08/24 08:14 Pulse Ox 97 03/08/24 08:14 Oxygen Delivery Method Room Air 03/08/24 08:14 BMI result Body Mass Index 30.7 Const General: cooperative, healthy appearing, comfortable and no acute distress Orientation/consciousness: patient oriented x3 Limitations: no limitations HEENT Head: Yes normal to inspection Ears: hearing grossly normal bilaterally, external ears normal and TM's normal bilaterally General nose exam: Normal external nose present, Normal nares present and No nasal discharge present Face and sinus: Yes normal facial exam and Yes sinuses nontender Mouth: Normal oral and palatal mucosa present and moist mucous membranes Throat: Yes tonsils normal, Yes uvula midline and Yes posterior oropharynx abnormal (Erythema) Eyes General: appearance normal, both eyes and all related structures Neck Neck: Yes normal visual inspection Resp Effort & Inspection: normal respiratory effort, able to speak in complete sentences, Actively coughing, no respiratory distress, not tachypneic, no tripod positioning and no use of accessory muscles Auscultation: bronchovesicular breath sounds diffuse Cardio Rate: regular rate Rhythm: regular rhythm Heart sounds: normal S1 and S2 Skin General skin exam: no rashes or lesions noted Neuro General: patient oriented x3 Extrem General: Yes normal to inspection and Yes no clubbing, cyanosis or edema Results AMB Rapid Strep AMB Rapid Strep Negative Last Edit by DEANN Pradhan on 03/08/24 08:34 Results Reviewed Results Reviewed: Laboratory Last Values Strep Scn Rapid Clinic Negative 03/08/24 08:30 Assessment & Plan Assessment & Plan (1) Cough: Code(s): R05.9 - Cough, unspecified Qualifiers: Cough type: acute Qualified Code(s): R05.1 - Acute cough Plan: We will get a chest x-ray to rule out pneumonia, vital signs are stable and patient is tired appearing and had bronchovesicular lung sounds. She is amenable to Paxlovid if the COVID comes back positive. The rapid strep was negative. Plan See above Orders: Orders AMB Rapid Strep Screen Today Z13.9 - Encounter for screening, unspecified XR chest 2V Today R05.9 - Cough, unspecified SARS-CoV2/FLU/RSV Today J06.9 - Acute upper respiratory infection, unspecified Medications: New fluticasone propionate 50 mcg/actuation administer into each nostril 1 spray intranasal Q12H 16 grams 0RF Refilled albuterol sulfate 90 mcg/actuation 2 puffs inhalation Q6H PRN 6.7 grams 0RF shortness of breath or wheezing Coding Level of Care Code Est Pt Level 4 (23028) Diagnoses Acute cough R05.1 Cough type: acute
== END 2024-03-08 08:39 | disposition home or self-care (01) ==
PROVIDERS: PCP Family Medicine; Visit Provider Physician Assistant
DX: R05.1 Acute cough (principal); Z13.9 Encounter for screening, unspecified

== ENCOUNTER 2024-03-08 08:05 | Outpatient (REF) | payer OTHER, SELFPAY ==
[2024-03-08 11:25] LABS: Influenza A PCR NEGATIVE (Negative); Influenza B PCR NEGATIVE (Negative); Resp Syncy Virus RNA Qual PCR NEGATIVE (Negative); SARS COV2 PCR INHOUSE NEGATIVE (Negative)
== END 2024-03-08 08:06 | disposition home or self-care (01) ==
LOC: HO.LNP 08:05
PROVIDERS: Physician Assistant; PCP Family Medicine; Visit Provider Family Medicine
DX: J06.9 Acute upper respiratory infection, unspecified (principal); R05.1 Acute cough
CPT/HCPCS: 0241U; 87880; 99212

== ENCOUNTER 2024-03-08 08:37 | Outpatient (REF) | payer OTHER, SELFPAY ==
--- NOTE | ~2024-03-08 | XR_ITS ---
EXAMINATION: XR CHEST CLINICAL INFORMATION: Cough COMPARISON: None available. TECHNIQUE: 2 views of the chest were obtained. FINDINGS: No significant abnormality is noted involving the heart, lungs, mediastinum, bony thorax or soft tissues. XR/XR chest 2V IMPRESSION: Unremarkable examination. Electronically signed by: Erasmo Foster MD 03/08/2024 09:32 AM EDT RP
== END 2024-03-08 08:38 | disposition home or self-care (01) ==
LOC: HO.HMGCX 08:37
PROVIDERS: PCP Family Medicine; Visit Provider Physician Assistant
DX: R05.9 Cough, unspecified (principal)
CPT/HCPCS: 71046

== ENCOUNTER 2024-03-10 08:01 | Outpatient (AMB) | payer OTHER, SELFPAY ==
--- NOTE | 2024-03-10 08:07 | AM.OFFWIN_ITS ---
Intake Vital Signs 03/10/24 08:08 Height 5 ft 7 in Weight 196 lb BMI 30.7 BP 110/78 Blood Pressure Location Lt brachial Position Sitting Pulse 68 Pulse Source Pulse Oximeter Temp 98.3 F Temp Source Oral Pulse Oximetry (%) 97 Oxygen Delivery Method Room Air Intake Visit Reasons: EP Cough, congestion, ear pain Intake Note: Patient here as she is not feeling any better from her last visit. fatigued, sinus congestion, headache, lightheaded. Patient Tobacco Use Status: Current everyday Tobacco user Allergies cefaclor [From CECLOR] Allergy (Intermediate, Verified 03/10/24 08:10) RASH, hives Sulfa (Sulfonamide Antibiotics) [SULFA (SULFONAMIDE ANTIBIOTICS)] Allergy (Intermediate, Verified 03/10/24 08:10) RASH, hives aspartame Adverse Reaction (Severe, Verified 03/10/24 08:10) Blister lactose [LACTOSE] Adverse Reaction (Unknown, Verified 03/10/24 08:10) DIARRHEA lanolin Allergy (Unknown, Uncoded 03/10/24 08:10) rash Do you need a note to return to daycare/school/sports/work: Yes HPI EP Cough, congestion, ear pain HPI Details This note is constructed using voice recognition software. While every effort has been made to ensure accuracy, polysomnographic technician errors may have been included. The patient is a 43 year old female who presents to the clinic today with URI symptoms for the past 5 days. She was last seen by her primary care on 03/08/2024 for the same, and had negative strep, COVID, flu, RSV, and chest x-ray at that time. She does report that she is currently a smoker but has cut back since onset of illness. Symptoms onset was Friday, and she initially had a low-grade fever, however last night was as high as 101.3. She had denies body aches, dyspnea. She reports right ear discomfort, cough, thick brown secretions. Has a history of COPD, and has had pneumonia in the past. [facility] Medical History Pre-diabetes Surgical History No pertinent past surgical history Family History Mother No problems noted. Father No problems noted. 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 Current occupational exposures/hazards: No Cognitive needs: No Hearing needs: No Vision needs: No Review of Systems Const All systems reviewed & are unremarkable except as noted in HPI and below Physical Exam Vital Signs: Last Vital Signs Temp 98.3 F 03/10/24 08:08 Pulse 68 03/10/24 08:08 BP 110/78 03/10/24 08:08 Pulse Ox 97 03/10/24 08:08 Oxygen Delivery Method Room Air 03/10/24 08:08 BMI result Body Mass Index 30.7 Const General: cooperative, healthy appearing, comfortable and no acute distress Orientation/consciousness: patient oriented x3 Limitations: no limitations HEENT Head: Yes normal to inspection Ears: hearing grossly normal bilaterally, external ears normal and TM abnormal retracted General nose exam: Normal external nose present, No nasal discharge present and Abnormal mucous membranes and turbinates present boggy and pale Face and sinus: Yes normal facial exam and Yes sinuses nontender Mouth: Normal oral and palatal mucosa present and moist mucous membranes Throat: Yes tonsils normal, Yes uvula midline, Yes posterior oropharynx abnormal (Erythema), Yes postnasal drainage and Yes cobblestoning Eyes General: appearance normal, both eyes and all related structures Neck Neck: Yes normal visual inspection Resp Effort & Inspection: normal respiratory effort, able to speak in complete sentences, Actively coughing, no respiratory distress, not tachypneic, no tripod positioning and no use of accessory muscles Auscultation: wheezes throughout Cardio Rate: regular rate Rhythm: regular rhythm Heart sounds: normal S1 and S2 Skin General skin exam: no rashes or lesions noted Neuro General: patient oriented x3 Extrem General: Yes normal to inspection and Yes no clubbing, cyanosis or edema Assessment & Plan Assessment & Plan (1) COPD exacerbation: Code(s): J44.1 - Chronic obstructive pulmonary disease with (acute) exacerbation Plan: Previous notes, imaging, and test results reviewed. Given the patient's ongoing symptoms and progression and worsening involving fever, we will treat her with prednisone and azithromycin for a COPD exacerbation. Reviewed supportive measures including sinus rinse, hydration, steam. We deferred repeating chest x-ray at this time as we are treating her clinically. Advised her to follow up should she not have any improvement or should she have worsening after treatment. Smoking cessation advised. Plan See above for full details and plan. Orders: Orders SARS-CoV2/FLU/RSV Today J06.9 - Acute upper respiratory infection, unspecified Medications: New prednisone 40 mg (2 x 20 mg) PO DAILY 5 days 10 tabs 0RF azithromycin For 250 mg dose pack: take 500 mg today (day 1), then 250 mg for 4 days (days 2-5) PO 6 tabs 0RF Coding Level of Care Code Est Pt Level 4 (67208) Diagnoses COPD exacerbation J44.1
[2024-03-10 08:08] VITALS: BP 110/78; PULSE 68; TEMP 36.8; O2SAT 97; BMI 30.7
== END 2024-03-10 08:44 | disposition home or self-care (01) ==
PROVIDERS: PCP Family Medicine; Visit Provider Registered Nurse
DX: J44.1 Chronic obstructive pulmonary disease with (acute) exacerbation (principal)

== ENCOUNTER 2024-03-10 08:01 | Outpatient (REF) | payer OTHER, SELFPAY ==
[2024-03-10 11:22] LABS: Influenza A PCR NEGATIVE (Negative); Influenza B PCR NEGATIVE (Negative); Resp Syncy Virus RNA Qual PCR NEGATIVE (Negative); SARS COV2 PCR INHOUSE NEGATIVE (Negative)
== END 2024-03-10 08:02 | disposition home or self-care (01) ==
LOC: HO.LAB 08:01
PROVIDERS: Registered Nurse; PCP Family Medicine
DX: J06.9 Acute upper respiratory infection, unspecified (principal); J44.1 Chronic obstructive pulmonary disease with (acute) exacerbation; R53.83 Other fatigue; R42 Dizziness and giddiness; R51.9 Headache, unspecified
CPT/HCPCS: 0241U; 99212

== ENCOUNTER 2024-03-30 08:50 | Outpatient (REF) | payer OTHER, SELFPAY ==
[2024-03-30 10:47] LABS: Alanine Aminotransferase 8 U/L (0-31); Albumin Level 3.9 g/dL (3.5-5.0); Alkaline Phosphatase 42 U/L (39-117); Anion Gap 11 (12-20); Aspartate Amino Transferase 12 U/L (5-31); Bilirubin Total 0.6 mg/dL (0.0-1.0); Blood Urea Nitrogen 13 mg/dL (9-16); Calcium 9.3 mg/dL (8.4-10.2); Carbon Dioxide 27 mmol/L (22-29); Chloride 105 mmol/L (96-108); Cholesterol 204 mg/dL (<200); Estimated Glomerular Filt Rate > 60; Glucose Fasting 105 mg/dL (60-99); HDL Cholesterol 65 mg/dL (>40); LDL Cholesterol Calculated 118 mg/dL (<100); Potassium 3.4 mmol/L (3.3-5.1); Sodium 140 mmol/L (135-145); Triglycerides 106 mg/dL (<150)
== END 2024-03-30 08:51 | disposition home or self-care (01) ==
LOC: HO.HMGCLDS 08:50
PROVIDERS: PCP Family Medicine; Visit Provider Family Medicine
DX: Z00.00 Encounter for general adult medical examination without abnormal findings (principal); E78.00 Pure hypercholesterolemia, unspecified
CPT/HCPCS: 36415; 80053; 80061

== ENCOUNTER 2024-04-09 08:16 | Outpatient (AMB) | payer OTHER, SELFPAY ==
--- NOTE | 2024-04-09 08:31 | MHC.PC.OV ---
Vital Signs 04/09/24 08:37 Height 5 ft 7 in Weight 197 lb BMI 30.9 BP 101/62 Blood Pressure Location Rt brachial Position Sitting Respiration 16 Pulse 61 Pulse Source Pulse Oximeter Temp 97.2 F Temp Source Oral Pulse Oximetry (%) 98 Oxygen Delivery Method Room Air Intake Visit Reasons: f/u hypertension, pre-diabetes Pre Billing Specialist Required: No Is last menstrual period known: Yes Last menstrual period: 03/30/24 Post menopausal: No Patient : No Allergies cefaclor [From CECLOR] Allergy (Intermediate, Verified 04/09/24 08:35) RASH, hives Sulfa (Sulfonamide Antibiotics) [SULFA (SULFONAMIDE ANTIBIOTICS)] Allergy (Intermediate, Verified 04/09/24 08:35) RASH, hives aspartame Adverse Reaction (Severe, Verified 04/09/24 08:35) Blister lactose [LACTOSE] Adverse Reaction (Unknown, Verified 04/09/24 08:35) DIARRHEA lanolin Allergy (Unknown, Uncoded 03/10/24 08:10) rash Tobacco use date assessed: 04/09/24 Dental Screening Dental Screen Date: 04/09/24 Did you have a dental visit in the last 12 months?: Yes Did you have a dental problem in the last 6 months where you did not have access to dental care?: No Was dental information given to patient?: Patient has dentist HPI f/u hypertension, pre-diabetes HPI Details 43 y/o female presents to f/u hypertension, pre-diabetes and lipids. Labs drawn 03/30/24. Reviewed labs with pt. Triglycerides 106. TC 204. LDL 118, HDL 65. Blood pressure today 101/62, 61p. She is on metoprolol hydrochlorothiazide 50-25mg daily. A1c today 04/09/24 5.7% - had been 5.7% before in December. She reports she would like to quit smoking and wants to start Chantix. Has complaints of a mole and would like referral to dermatology. [facility] Medical History Pre-diabetes Surgical History No pertinent past surgical history Family History Mother No problems noted. Father No problems noted. Social History Housing: House Alcohol intake: never Patient Tobacco Use Status: Current everyday Tobacco user Cigarette Packs Per Day: 0.5 Cigarettes Per Day: 10 Years Smoked: 16 e-Cigarette/Vaping Use: Never Used Second Hand Smoke Exposure: No service: No Current occupational status: employed Current occupation: [employer] Current occupational exposures/hazards: No Cognitive needs: No Hearing needs: No Vision needs: No Female Reproductive History Menstrual Date of last menstrual period: 03/30/24 Questionnaire PHQ-9 Over the last 2 weeks, how often have you been bothered by any of the following problems? 1. Little interest or pleasure in doing things: not at all 2. Feeling down, depressed, or hopeless: not at all 3. Trouble falling or staying asleep, or sleeping too much: not at all 4. Feeling tired or having little energy: not at all 5. Poor appetite or overeating: not at all 6. Feeling bad about yourself - or that you are a failure or have let yourself or your family down: not at all 7. Trouble concentrating on things, such as reading the newspaper or watching television: not at all 8. Moving or speaking so slowly that other people could have noticed. Or the opposite - being so fidgety or restless that you have been moving around a lot more than usual: not at all 9. Thoughts that you would be better off or of hurting yourself in some way: not at all Total score: 0 Source: Developed by Drs. Aleksandr Clemens, Almaz Levy, Otoniel Renae and colleagues, with an educational mil from [employer]. Thrive Questionnaire Date Thrive assessed: 04/09/24 I am a: Patient What is your living situation today?: I have a steady place to live Within the past 12 months, did the food you bought not last and you didn't have the money to get more?: Never true Within the past 12 months, did you worry whether your food would run out before you got money to buy more?: Never true Do you have trouble paying for medicines?: No Do you have trouble getting transportation to medical appointments?: No Do you have trouble paying your heating and electricity bill?: No Do you have trouble taking care of your child, family member or friend?: No Do you have trouble with day-to-day activities such as bathing, preparing meals, shopping, managing finances, etc.?: No Are you currently unemployed and looking for a job?: No Are you interested in more education?: No Please select the resources that you would like help with: None Currently or been in a relationship where the following occur: No concerns reported and I choose not to answer THRIVE Score: 0 AUDIT C Alcohol Use Questionnaire (AUDIT-C) 1. How often do you have a drink containing alcohol?: Never 3. How often do you have six or more drinks on one occasion?: Never Total Score: 0 CONOR-7 AMB Questionnaire CONOR-7 Date CONOR - 7 assessed: 04/09/24 Feeling nervous, anxious, or on edge: 0 = Not at all Not being able to stop or control worryin = Not at all Worrying too much about different things: 0 = Not at all Trouble relaxin = Not at all Being so restless that it is hard to sit still: 0 = Not at all Becoming easily annoyed or irritable: 0 = Not at all Feeling afraid as if something awful might happen: 0 = Not at all Total CONOR-7 score (0-4 normal; 5-9 mild; 10-14 moderate; 15-21 severe): 0 Source: Developed by Drs. Aleksandr Clemens, Almaz Levy, Otoniel Renae and colleagues, with an educational mil from [employer]. CONOR-7 Assessment Billing CONOR-7 Assessment Tool: CONOR-7 Assessment 12226 Review of Systems Const Denies chills, Denies fatigue, Denies fever(s), Denies headache(s) and Denies weakness ENT Denies dizziness and Denies headache(s) Card Denies chest pain, Denies lightheadedness, Denies dyspnea and Denies other (Palpitations) Resp Denies cough, Denies dyspnea, Denies wheezing and Denies other ( shortness of breath) Musc Denies numbness and Denies tingling Neuro Denies dizziness, Denies headache(s), Denies numbness, Denies tingling, Denies paresthesias and Denies weakness Psych Denies anxiety and Denies depression Endo Denies fatigue Aller/Immun Denies wheezing Physical exam (Primary Care) Vital Signs: Last Vital Signs Temp 97.2 F 04/09/24 08:37 Pulse 61 04/09/24 08:37 Resp 16 04/09/24 08:37 BP 101/62 04/09/24 08:37 Pulse Ox 98 04/09/24 08:37 Oxygen Delivery Method Room Air 04/09/24 08:37 BMI result Body Mass Index 30.9 Tobacco/Smoking Status: Tobacco use Status Tobacco use date assessed 04/09/24 04/09/24 08:41 Patient Tobacco Use Status Current everyday Tobacco 04/09/24 08:32 e-Cigarette/Vaping Use Never Used 04/09/24 08:32 PHQ-9: PHQ-9 Score PHQ-9: Total score 0 04/09/24 08:32 Thrive Assessment: Date of Thrive Assessment Date Thrive assessed 04/09/24 04/09/24 08:43 Currently or been in a relationship where the following occur: No concerns reported and I choose not to answer Const General: no acute distress and well developed Nutritional Appearance: well nourished Orientation/consciousness: patient oriented x3 HENMT Head: Yes normocephalic and Yes atraumatic Eyes General: appearance normal, both eyes and all related structures Pupils: Equal, round and reactive pupils present EOM: EOMs intact bilaterally Resp Effort & Inspection: normal respiratory effort Auscultation: clear to auscultation bilaterally Cardio Rate: regular rate Rhythm: regular rhythm Heart sounds: S1 normal heart sound present, S2 normal heart sound present, no gallops, no murmurs and no rubs Skin Other: 2m melanotic lesion on back with mild color variegation Neuro General: patient oriented x3 and gait normal Cranial nerves: Yes Equal, round and reactive pupils present Psych Affect: normal affect Coding Level of Care Code Est Pt Level 4 (38959) Diagnoses Essential hypertension I10 Pre-diabetes R73.03 Hypercholesterolemia E78.00 Smoker F17.200 Neoplasm of uncertain behavior of skin D48.5 Additional Codes CONOR-7 Assessment Billing - CONOR-7 Assessment Tool: CONOR-7 Assessment 37866 ([id number]) Assessment & Plan Assessment & Plan (1) Essential hypertension: Code(s): I10 - Essential (primary) hypertension Category: Medical Plan: Blood?pressure?is?well?controlled.??Goal?is?less?than?140/90 Continue?current?medication (2) Pre-diabetes: Code(s): R73.03 - Prediabetes Category: Medical Plan: A1c?remains?5.7%. Early?pre?diabetes Encouraged?diet?lower?in?sugars?and?starches.??Encouraged?weight?loss?and?exercise (3) Hypercholesterolemia: Code(s): E78.00 - Pure hypercholesterolemia, unspecified Category: Medical Plan: LDL?cholesterol?has?improved?with?lifestyle?changes.??HDL?ratios?are?good Continue?working?at?diet?lower?in?saturated?fats?and?cholesterol?and?encouraged?exercise?and?weight?loss (4) Smoker: Code(s): F17.200 - Nicotine dependence, unspecified, uncomplicated Category: Social Hx Plan: Patient?has?used?Chantix?in?the?past?and?would?like?to?try?this?again. Will?send?a?script (5) Neoplasm of uncertain behavior of skin: Code(s): D48.5 - Neoplasm of uncertain behavior of skin Category: Medical Plan: 2?mm?melanotic?lesion?on?her?back?with?mild?color?variegation Referred?to?dermatology Orders: Referrals Dermatology Referral D48.5 - Neoplasm of uncertain behavior of skin Medications: New varenicline PO PER PKG DIR 53 ea 0RF F17.200 - Nicotine dependence, unspecified, uncomplicated
[2024-04-09 08:37] VITALS: BP 101/62; PULSE 61; RESP 16; TEMP 36.2; O2SAT 98; BMI 30.9
== END 2024-04-09 09:02 | disposition home or self-care (01) ==
PROVIDERS: PCP Family Medicine; Visit Provider Family Medicine
DX: I10 Essential (primary) hypertension (principal); R73.03 Prediabetes; E78.00 Pure hypercholesterolemia, unspecified; F17.200 Nicotine dependence, unspecified, uncomplicated; D48.5 Neoplasm of uncertain behavior of skin

== ENCOUNTER → 2024-04-09 08:16 | Outpatient (BNVA) | payer OTHER, SELFPAY | PROVIDERS: PCP Family Medicine; Visit Provider Family Medicine | DX: I10 Essential (primary) hypertension (principal); R73.03 Prediabetes; E78.00 Pure hypercholesterolemia, unspecified; D48.5 Neoplasm of uncertain behavior of skin; F17.210 Nicotine dependence, cigarettes, uncomplicated; Z79.899 Other long term (current) drug therapy | CPT/HCPCS: 96127; 99212 ==

== ENCOUNTER 2024-08-10 08:20 | Outpatient (AMB) | payer OTHER, SELFPAY ==
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
--- OUTSIDE RECORDS SUMMARY | 2024-08-10 08:33 | XMS_ITS | Data Portability ---
Author Organization [facility], [address] Address [address] [place] [address] Care Team Providers Care Cold Type Artist Name Role Phone SHEREEN MCCULLOUGH Primary Care Provider [phone] Assessment No assessment recorded. Plan of Treatment Reminders Order Date Submit Date Provider Last Modified By Organization Details Last Modified Time Details Appointments None recorded. Lab SARS CoV 2 (COVID-19) Ag, QL, IA, upper respiratory specimen 2022 023 [email or web address] [facility], [address] [place], [address], 3 12:34:04 Referral None recorded. Procedures None recorded. Surgeries None recorded. Imaging XR, chest, 2 view - Persistent cough for 2 weeks . exp wheezing on exam 2022 023 [email or web address] [facility], [address] [place] [address], [place], [address], 3 13:23:44 Medication Orders doxycycline hyclate 100 mg capsule 2022 023 [facility][id number], [address] [place], [address], 3 13:22:42 levofloxaci n 750 mg tablet 2022 023 [facility] #[id number], [address] [place], [address], 3 13:22:42 benzonatate 200 mg capsule 2022 023 [facility] #[id number], [address] [place], [address], 3 12:34:04 albuterol sulfate HFA 90 mcg/actuati on aerosol inhaler [email or web address]/[facility]armacy #[id number], [address] [place], [address], 16:23:44 prednisone 20 mg tablet 2022 023 [facility] #[id number], [address] [place], [address], 13:02:15 Patient TargetsNo targets recorded. Patient Instructions Encounter Date Encounter Id Patient Instructions Last Modified By Organization Details Last Modified Time 02/24/2023 [id number] cough: care instructions [email or web address] Not available 02/24/2023 12:34:01 Reason for Referral None Reported. Results Created Date Observation Date Name Description Value Unit Range Abnormal Flag Note LastModifiedBy Organization Detail LastModifiedTime 02/25/2002/24/2023 SARS CoV 2 (COVI D-19) Ag, QL, IA, upper respi rator y speci men Unknown Analyte negati ve Not Available [address] [place], [address], 02/24/2023 12:09:14 02/25/20 23 02/24/2023 XR, chest , 2 view No observ ation record ed. [email or web address] [facility] [address] [facility], [place], [address], 02/24/2023 15:05:07 Result Notes None recorded. Problems Name Problem SNOMED Code Status Onset Date Resolution Date Notes Provider Name and Address Organization Details Recorded Time Hypertensive disorder 61715296 Active 2022 GERTRUDIS DRINKCARLO null, [place] - [facility] 12:04:57 Seasonal allergic rhinitis 744064981 Active 2022 GERTRUDIS DRINKWINE null, [place] - [facility] 3 12:05:06 Problem Notes None recorded. Procedures Surgical History None recorded. Imaging Results Imaging Date Name Status [facility]Modified by [facility] Details LastModified Time 02/24/2023 XR, chest, 2 view completed [email or web address] [facility] [address] [place], [address], 02/24/2023 15:05:07 Procedure Notes None recorded. Medical Equipment None Reported. Allergies Allergen ID Allergen Name Allergen Category Reaction Reaction Severity Criticality Documentation Date Start Date Code Code System Note Provider Name and Address Organization Details Recorded Time 365611 Substance with sulfonami de structure and antibacte rial mechanism of action (substanc e) medicatio n hives Not available Not available 02/24/2023 58556 8003 SNOMED GERTRUDIS DRINKWINE null, PA - [facility] 3 12:02:59 854179 Ceclor medicatio n hives Not available Not available 02/24/2023 02603 5 RxNorm GERTRUDIS DRINKWINE null, PA - [facility] 3 12:03:13 333360 aspartame food,medi cation rash Not available Not available 02/24/2023 70733 24 RxNorm GERTRUDIS DRINKWINE null, PA - [facility] 3 12:03:30 374697 lanolin environme nt,medica tion rash Not available Not available 02/24/2023 6227 RxNorm GERTRUDIS DRINKWINE null, PA - [facility] 3 12:03:42 Medications Name Sig Start Date Stop Date Status Note LastModified by Organization Details LastModified Time amoxicillin 500 mg capsule TAKE 1 CAPSULE BY MOUTH 3 TIMES A DAY FOR 10 DAYS FOR INFECTION 02/24 completed Not Available Not Available Not Available doxycycline hyclate 100 mg capsule Take 1 capsule twice a day by oral route for 7 days. 2022 active Not Available Not Available Not Avai lable azithromyci n 250 mg tablet TAKE 2 TABLETS BY MOUTH TODAY, THEN TAKE 1 TABLET DAILY FOR 4 DAYS 02/24 completed Not Available Not Available Not Available benzonatate 200 mg capsule Take 1 capsule 3 times a day by oral route as needed for 10 days. 2022 active Not Available Not Available Not Avai lable prednisone 20 mg tablet Take 2 tablets every day by oral route for 5 days. 2022 active Not Available Not Available Not Avai lable metoprolol tartrate 50 mg-hydrochl orothiazide 25 mg tablet active Not Available Not Available Not Available amoxicillin 875 mg tablet 02/24 completed Not Available Not Available Not Available levofloxaci n 750 mg tablet Take 1 tablet every day by oral route for 5 days. 2022 active Not Available Not Available Not Avai lable albuterol sulfate HFA 90 mcg/actuati on aerosol inhaler Inhale 2 puffs every 4 hours by inhalatio n route for 10 days. 2022 active Not Available Not Available Not Avai lable fluticasone propionate 50 mcg/actuati on nasal spray,suspe nsion SPRAY 1 SPRAY INTO EACH NOSTRIL TWICE A DAY FOR ALLERGY SYMPTOMS 02/24 completed Not Available Not Available Not Available amoxicillin 500 mg-potassiu m clavulanate 125 mg tablet TAKE 1 TABLET BY MOUTH 3 TIMES A DAY FOR 7 DAYS 02/24 completed Not Available Not Available Not Available Allergy Relief (loratadine ) 10 mg tablet active Not Available Not Available Not Available Tri-Estaryl la (28) 0.18 mg(7)/0.215 mg(7)/0.25 mg(7)-35 mcg tablet active Not Available Not Available N ot Available Vitals Date Recorded Body height Body mass index (BMI) Body weight Pain severity - 0-10 verbal numeric rating [Score] - Reported Body temperature Respiratory rate Heart rate Oxygen saturation Oxygen saturation in Arterial blood by Pulse oximetry Systolic blood pressure Diastolic blood pressure Provider Name and Address Organization Details Last Updated DateTime 3 170.18 cm 31.3 kg/m2 32604.4 7 g 0 97.7 [degF] 18 /min 82 /min 99 % 99 % 138 mm[Hg] 80 mm[Hg] GERTRUDIS LEAHY PA - [facility] 3 12:08:47 Social History Question Answer Notes LastModified by Organizat ion Details LastModified Time Tobacco Smoking Status Current Every Day Smoker GERTRUDIS DRINKWINE null, PA - [facility] 02/24/2023 12:06:11 Which Illicit Or Recreational Drugs Have You Used? Marijuana Information not available 02/24/2023 How Much Tobacco Do You Smoke? 0.5 PPD Information not available 02/24/2023 Do You Use Any Illicit Or Recreational Drugs? Yes Information not available 02/24/2023 Have You Recently Traveled Abroad? No Information not available 02/24/2023 Do You Or Have You Ever Used Any Other Forms Of Tobacco Or Nicotine? No Information not available 02/24/2023 Sex: Unknown Functional Status None recorded. Mental Status None recorded. Family History Relationship Description Onset Age of this Age Resolved Age Notes LastModified by Organization Details LastModified Time Mother Lupus erythematosu s [email or web address] Not available 02/24 12:05:38 Mother Disorder of thyroid gland [email or web address] Not available 02/24 12:05:47 Medical History No medical history recorded. Gynecological HistoryNo gynecological history recorded. Obstetrics History GPAL:G 0 P 0 0 0 0 Immunizations Vaccine Type Date Status Note Provider Nam e and Address Organization Details Recorded Time Influenza, split virus, quadrivalent, preservative 6 completed GERTRUDIS DRINKWINE null, PA - [facility] 02/24/2023 12:05:20 Influenza, split virus, quadrivalent, preservative 8 completed GERTRUDIS DRINKWINE null, PA - [facility] 02/24/2023 12:05:20 Influenza, MDCK, quadrivalent, PF 0 completed GERTRUDIS DRINKWINE null, PA - [facility] 02/24/2023 12:05:20 Influenza, MDCK, quadrivalent, preservative 9 completed GERTRUDIS DRINKWINE null, PA - [facility] 02/24/2023 12:05:20 COVID-19, mRNA, LNP-S, PF, 100 mcg/0.5mL dose or 50 mcg/0.25mL dose 1 completed GERTRUDIS DRINKWINE null, PA - [facility] 02/24/2023 12:05:20 COVID-19, mRNA, LNP-S, PF, 100 mcg/0.5mL dose or 50 mcg/0.25mL dose 1 completed GERTRUDIS DRINKWINE null, PA - [facility] 02/24/2023 12:05:20 COVID-19, mRNA, LNP-S, PF, 100 mcg/0.5mL dose or 50 mcg/0.25mL dose 1 completed GERTRUDIS DRINKWINE null, PA - [facility] 02/24/2023 12:05:20 COVID-19, mRNA, LNP-S, bivalent, PF, 50 mcg/0.5 mL or 25mcg/0.25 mL dose 2 completed GERTRUDIS DRINKWINE null, PA - [facility] 02/24/2023 12:05:20 Influenza, split virus, trivalent, preservative 1 completed GERTRUDIS DRINKWINE null, PA - [facility] 02/24/2023 12:05:20 Influenza, split virus, trivalent, preservative 5 completed GERTRUDIS DRINKWINE null, PA - [facility] 02/24/2023 12:05:20 Influenza, split virus, trivalent, preservative 0 completed GERTRUDIS DRINKWINE null, PA - [facility] 02/24/2023 12:05:20 Td (adult), 5 Lf tetanus toxoid, preservative free, adsorbed 3 completed GERTRUDIS DRINKWINE null, PA - [facility] 02/24/2023 12:05:20 Influenza, split virus, quadrivalent, PF 2 completed GERTRUDIS DRINKWINE null, PA - [facility] 02/24/2023 12:05:20 Influenza, split virus, quadrivalent, PF 1 completed GERTRUDIS DRINKWINE null, PA - [facility] 02/24/2023 12:05:20 Past Encounters Encounter ID Performer Location Encounter Start Date Encounter Closed Date Diagnosis/Indication Diagnosis SNOMED-CT Code Diagnosis ICD10 Code Diagnosis Note [id number] [address] [address] [place] [address] 02/08/2022 11:50:40 02/08/2022 13:30:14 [id number] [address] [facility] [place] [address] 04/25/2022 08:28:09 04/25/2022 10:47:42 [id number] [address] [place] [address] 03/31/2022 16:54:40 03/31/2022 17:43:41 [id number] Dominique Tavares NP [address] [place] [address] 02/24/2023 11:35:30 02/24/2023 13:23:44 Respiratory tract congestion and cough 344826141 R05.9 Based on your Presentati on, Exam, and Lab Testing you are being diagnosed with 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 Take Ibuprofen or Tylenol if you do not have any allergies to these medication s. If you take a blood thinner you should not take NSAIDS like Ibuprofen. These medication will help with the inflammati on in your respirator y tract which should help the cough.2. Do not take any decongesta nts at this time because this will dry out that tract too much. If you have a lot of nasal congestion you can try nasal decongesta nts, but I would not take them more than 5 days.3. Use a humidifier or add a cup of water by your bed. Sometimes if our sleeping environmen t is too dry this can lead to cough4. Salt Water Gargles5. Saline nasal spray is helpful.6. Would recommend taking a antihistam ine to help with the congestion .7. Clean Surfaces regularly and try to stay isolated from family members. I would be seen again if you develop any of the following. 1. Cough develops last longer than 3 weeks.2. Develop shortness of breath or wheezing.3 . Severe Headache with vision changes4. Stiff Neck5. Fever does not reduce a few points with Ibuprofen or Tylenol. I would go immediatel y to the Emergency Room if you develop:1. Chest Pain2. Severe Shortness of breath3. Coughing up Blood. I would be seen again if you develop any of the following symptoms.1 . Fever > 101.02. Stiff neck - where you can't turn your neck3. Trouble swallowing your saliva - drooling4. Swelling of a lymph node in your throat that is painful to touch5. Difficulty breathing6 . Severe Headache Thank you for using [facility] today, please feel free to contact our office if you have any questions or concerns. Community acquired pneumonia [id number] J18.9 Health Concerns Section Related Observation LastModified by Organization Detai ls LastModified Time None Recorded Concern Status LastModified by Organization Details LastModified Time None Recorded Advance Directives Directive None Recorded Payers Encounter Date Sequence Insurance Name Policy Number Policy Grubbs Covered Member ID Grubbs Member ID Guarantor Name 02/08/2022 1 [facility] PLAN (MEDICAID HMO) [id number] September Zeferino [id number] September Zeferino 03/31/2022 1 [facility] PLAN (MEDICAID HMO) [id number] Abi Zeferino [id number] September [place] 02/24/2023 1 [facility] (MEDICAID HMO) [id number] Abi M [place] [id number] September [place] Notes Date Note Type Note Provider Name and Address Organization Details Recorded Time 3 text/html CoughReported bypatient.source of patient informationInformation obtained from patient; Patient arrived at Urgent Care ambulatory Quality:harsh;barking;dry and wet Severity:worsening;pain with cough Duration:symptoms lasting over 2 weeks Timing:worsening Context:Patient denies vaping; non-smoker Modifying Factors:Cough Suppressant Associated Symptoms:no nausea; no vomiting; no edema; no agitation; no post nasal drip;fever;chills;wheezingN otes:Patient presents with fatigue , prolonged cough, fever, chills onset 02/14/23. has been evaluated by pc through virtual visit and treated with a zpack . congestion and sinus pressure improved but returned once completed tx. presently has decreased energy and low appetite, and night sweatshome covid test neg 02/15 Dominique Tavares NP [address] [place], [address], [place] - [facility] 02/24/2023 16:32:04 OBGyn Episode No OBEpisode recorded.
[2024-08-10 08:43] VITALS: BP 110/60; PULSE 64; RESP 14; TEMP 36.8; O2SAT 98; BMI 34.8
== END 2024-08-10 09:05 | disposition home or self-care (01) ==
PROVIDERS: PCP Family Medicine; Visit Provider Family Medicine
DX: I10 Essential (primary) hypertension (principal); R73.03 Prediabetes; M25.539 Pain in unspecified wrist; R07.0 Pain in throat; B00.1 Herpesviral vesicular dermatitis

== ENCOUNTER → 2024-08-10 08:20 | Outpatient (BNVA) | payer OTHER, SELFPAY | PROVIDERS: PCP Family Medicine; Visit Provider Family Medicine | DX: I10 Essential (primary) hypertension (principal); R73.03 Prediabetes; R07.0 Pain in throat; B00.1 Herpesviral vesicular dermatitis; M65.4 Radial styloid tenosynovitis [de Quervain] | CPT/HCPCS: 83036; 99212 ==

== ENCOUNTER 2024-08-19 08:16 | Outpatient (AMB) | payer OTHER, SELFPAY ==
[2024-08-19 08:40] VITALS: BP 120/80; PULSE 73; TEMP 37.1; O2SAT 98
--- NOTE | 2024-08-19 08:40 | MHC.OFFWIV ---
Intake Vital Signs 08/19/24 08:40 Weight 221 lb BP 120/80 Blood Pressure Location Rt brachial Position Sitting Pulse 73 Pulse Source Pulse Oximeter Temp 98.8 F Temp Source Oral Pulse Oximetry (%) 98 Oxygen Delivery Method Room Air Intake Visit Reasons: EP Sore throat, cough, ear pain, congestion Intake Note: Patient here for sore throat that has been present for 2 weeks and over the past couple of days she is having bilat ear pain, eye pressure, cheek pressure, discharge from eyes. Patient Tobacco Use Status: Current everyday Tobacco user Allergies cefaclor [From CECLOR] Allergy (Intermediate, Verified 08/19/24 08:47) RASH, hives Sulfa (Sulfonamide Antibiotics) [SULFA (SULFONAMIDE ANTIBIOTICS)] Allergy (Intermediate, Verified 08/19/24 08:47) RASH, hives aspartame Adverse Reaction (Severe, Verified 08/19/24 08:47) Blister lactose [LACTOSE] Adverse Reaction (Unknown, Verified 08/19/24 08:47) DIARRHEA lanolin Allergy (Unknown, Uncoded 08/19/24 08:47) rash Do you need a note to return to daycare/school/sports/work: No HPI HPI Comments History of Present Illness Details History - The patient is a 43-year-old female presenting with a sore throat and ear pain. - She reports that these symptoms have persisted for close to two weeks, beginning with a sore throat. - Associated complaints include nasal congestion, headaches, and pressure around the upper facial area. - There was a febrile episode with a temperature of 100.8?F recorded during the use of stmv-sol-jihcwxd medications. - The patient indicates the usage of 600 mg of ibuprofen and combination allergy medications as palliative measures. - Absence of respiratory distress noted, though there is a history of asthma. - She engages in self-care measures, including steam inhalation, the use of humidifiers, nasal sprays, and various lhfe-oww-eeeufnn medications, without significant symptom relief. - Allergy history includes sulfonamide compounds. Physical Exam General: Cooperative, healthy appearing, comfortable and no acute distress Orientation/consciousness: Patient oriented x3 Limitations: No limitations Head: Congested, pressure behind eyes and cheeks Ears: External ears normal, right TM with erythema, left TM normal, hearing grossly normal bilaterally Nose: Normal external nose present, Normal nares present and No nasal discharge present Face and sinus: Normal facial exam, pressure behind eyes and cheeks, Yes sinuses nontender Mouth: Normal oral and palatal mucosa present and moist mucous membranes Throat: Yes tonsils normal, Yes uvula midline. Posterior oropharynx erythema, no exudates Eyes: Appearance normal, both eyes and all related structures Neck: Normal visual inspection Respiratory:Normal respiratory effort, able to speak in complete sentences, Actively coughing, no respiratory distress, not tachypneic, no tripod positioning and no use of accessory muscles Skin: No rashes or lesions noted Neuro: Patient oriented x3 Extremities: Normal to inspection and Yes no clubbing, cyanosis or edema PFSH Medical History Pre-diabetes Surgical History No pertinent past surgical history Family History Mother No problems noted. Father No problems noted. 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 Current occupational exposures/hazards: No Cognitive needs: No Hearing needs: No Vision needs: No Review of Systems Const All systems reviewed & are unremarkable except as noted in HPI and below Physical Exam Vital Signs: Last Vital Signs Temp 98.8 F 08/19/24 08:40 Pulse 73 08/19/24 08:40 BP 120/80 08/19/24 08:40 Pulse Ox 98 08/19/24 08:40 Oxygen Delivery Method Room Air 08/19/24 08:40 Assessment & Plan Assessment & Plan (1) URI, acute: Code(s): J06.9 - Acute upper respiratory infection, unspecified Plan: Based on the examination and reported symptoms, I suspect a bacterial etiology for the patient's prolonged symptomatic presentation, indicative of acute sinusitis. Sent flu covid and rsv testing, if all are negative, Augmentin will prescribed as the first-line treatment, given the patient's sulfa allergy profile. This strategy aims to address the possible bacterial component of symptoms. The diagnostic process identified fluid in the ear with redness but did not confirm infection, allowing the use of supportive medications such as nasal corticosteroids to continue. The patient will continue to monitor her fever, with the understanding that clinical response to antibiotics may take several days to achieve. Patient was informed and verbally consented to the use of an ambient scribe for clinic note documentation during this visit Orders: Orders SARS-CoV2/FLU/RSV Today J06.9 - Acute upper respiratory infection, unspecified Coding Level of Care Code Est Pt Level 3 (20822) Diagnoses URI, acute J06.9
--- OUTSIDE RECORDS SUMMARY | 2024-08-19 08:40 | XMS_ITS | Data Portability ---
Author Organization [facility], [address] Address [address] [place] [address] Care Team Providers Care Bulb Assembler Name Role Phone SHEREEN MCCULLOUGH Primary Care Provider Assessment No assessment recorded. Plan of Treatment Reminders Order Date Submit Date Provider Last Modified By Organization Details Last Modified Time Details Appointments None recorded. Lab SARS CoV 2 (COVID-19) Ag, QL, IA, upper respiratory specimen 2022 023 [email or web address] [facility] [address], [address] [place], [address], 3 12:34:04 Referral None recorded. Procedures None recorded. Surgeries None recorded. Imaging XR, chest, 2 view - Persistent cough for 2 weeks . exp wheezing on exam 2022 023 [email or web address] [facility], [address] [place] [address], [place], [address], 3 13:23:44 Medication Orders doxycycline hyclate 100 mg capsule 2022 023 [facility], [address] [place], [address], 3 13:22:42 levofloxaci n 750 mg tablet 2022 023 [facility], [address] [place], [address], 3 13:22:42 benzonatate 200 mg capsule 2022 023 [facility], [address] [place], [address], 3 12:34:04 albuterol sulfate HFA 90 mcg/actuati on aerosol inhaler [email or web address], [address] [place], [address], 16:23:44 prednisone 20 mg tablet 2022 023 [facility], [address] [place], [address], 13:02:15 Patient TargetsNo targets recorded. Patient Instructions Encounter Date Encounter Id Patient Instructions Last Modified By Organization Details Last Modified Time 02/24/2023 [id number] cough: care instructions [email or web address] Not available 02/24/2023 12:34:01 Reason for Referral None Reported. Results Created Date Observation Date Name Description Value Unit Range Abnormal Flag Note LastModifiedBy Organization Detail LastModifiedTime 02/25/2002/24/2023 SARS CoV 2 (COVI D-19) Ag, QL, IA, upper respi rator y speci men Unknown Analyte negati ve Not Available [address] [place], [address], 02/24/2023 12:09:14 02/25/20 23 02/24/2023 XR, chest , 2 view No observ ation record ed. [email or web address] [facility] [address] [facility], [place], [address], 02/24/2023 15:05:07 Result Notes None recorded. Problems Name Problem SNOMED Code Status Onset Date Resolution Date Notes Provider Name and Address Organization Details Recorded Time Hypertensive disorder 96348298 Active 2022 GERTRUDIS DRINKCARLO null, [place] - [facility] 12:04:57 Seasonal allergic rhinitis 158388272 Active 2022 GERTRUDIS DRINKWINE null, [place] - [facility] 3 12:05:06 Problem Notes None recorded. Procedures Surgical History None recorded. Imaging Results Imaging Date Name Status LastModified by [facility] Details LastModified Time 02/24/2023 XR, chest, 2 view completed [email or web address] [facility] [address] [place], [address], 02/24/2023 15:05:07 Procedure Notes None recorded. Medical Equipment None Reported. Allergies Allergen ID Allergen Name Allergen Category Reaction Reaction Severity Criticality Documentation Date Start Date Code Code System Note Provider Name and Address Organization Details Recorded Time 608624 Substance with sulfonami de structure and antibacte rial mechanism of action (substanc e) medicatio n hives Not available Not available 02/24/2023 55926 8003 SNOMED GERTRUDIS DRINKWINE null, [place] - [facility] 3 12:02:59 941101 Ceclor medicatio n hives Not available Not available 02/24/2023 96893 5 RxNorm GERRTUDIS DRINKWINE null, [place] - [facility] 3 12:03:13 156948 aspartame food,medi cation rash Not available Not available 02/24/2023 38540 24 RxNorm GERTRUDIS DRINKWINE null, [place] - [facility] 3 12:03:30 491445 lanolin environme nt,medica tion rash Not available [...] Updated DateTime 3 170.18 cm 31.3 kg/m2 47329.4 7 g 0 97.7 [degF] 18 /min [...] SNOMED-CT Code Diagnosis ICD10 Code Diagnosis Note [id number] [address] [facility] [address] [place] [address] 02/08/2022 11:50:40 02/08/2022 13:30:14 [id number] [address] [facility] [place] [address] 04/25/2022 08:28:09 04/25/2022 10:47:42 [id number] [address] [place] [address] 03/31/2022 16:54:40 03/31/2022 17:43:41 [id number] Dominique Tavares NP [address] [place] [address] 02/24/2023 11:35:30 02/24/2023 13:23:44 Respiratory tract congestion and cough [id number] R05.9 Based on your Presentati on, Exam, [...] . Severe Headache Thank you for using [facility] today, please feel free to contact our office if you have any questions or concerns. Community acquired pneumonia [id number] J18.9 Health Concerns Section Related Observation LastModified by Organization Detai ls LastModified Time None Recorded Concern Status LastModified by Organization Details LastModified Time None Recorded Advance Directives Directive None Recorded Payers Encounter Date Sequence Insurance Name Policy Number Policy Grubbs Covered Member ID Grubbs Member ID Guarantor Name 02/08/2022 1 [employer] (MEDICAID HMO) [id number] September Zeferino [id number] September Zeferino 03/31/2022 1 [employer] (MEDICAID HMO) [id number] Abi Zeferino [id number] September Sinclair 02/24/2023 1 [facility] (MEDICAID HMO) [id number] Abi M Sinclair [id number] September Sinclair Notes Date Note Type Note Provider Name [...] Dominique Tavares NP [address] [place], [address], [place] - [facility] 02/24/2023 16:32:04 OBGyn Episode No OBEpisode recorded.
== END 2024-08-19 09:10 | disposition home or self-care (01) ==
PROVIDERS: PCP Family Medicine; Visit Provider Physician Assistant
DX: J06.9 Acute upper respiratory infection, unspecified (principal)

== ENCOUNTER 2024-08-19 08:16 | Outpatient (REF) | payer OTHER, SELFPAY ==
[2024-08-19 11:06] LABS: Influenza A PCR NEGATIVE (Negative); Influenza B PCR NEGATIVE (Negative); Resp Syncy Virus RNA Qual PCR NEGATIVE (Negative); SARS COV2 PCR INHOUSE NEGATIVE (Negative)
== END 2024-08-19 08:17 | disposition home or self-care (01) ==
LOC: HO.LAB 08:16
PROVIDERS: PCP Family Medicine; Visit Provider Physician Assistant
DX: J06.9 Acute upper respiratory infection, unspecified (principal)
CPT/HCPCS: 0241U; 99212

== ENCOUNTER 2024-08-25 15:29 | Outpatient (AMB) | payer OTHER, SELFPAY ==
[2024-08-25 15:35] VITALS: BP 124/76; PULSE 72; RESP 20; TEMP 36.8; O2SAT 99
--- NOTE | 2024-08-25 15:35 | AM.OFFWIN_ITS ---
Intake Vital Signs 08/25/24 15:35 Height 5 ft 7 in BP 124/76 Blood Pressure Location Rt brachial Position Sitting Respiration 20 Pulse 72 Pulse Source Pulse Oximeter Temp 98.2 F Temp Source Oral Pulse Oximetry (%) 99 Oxygen Delivery Method Room Air Intake Visit Reasons: EP ?Sinus Intake Note: pt is here for possible sinus Patient Tobacco Use Status: Current everyday Tobacco user Allergies cefaclor [From CECLOR] Allergy (Intermediate, Verified 08/25/24 15:36) RASH, hives Sulfa (Sulfonamide Antibiotics) [SULFA (SULFONAMIDE ANTIBIOTICS)] Allergy (Intermediate, Verified 08/25/24 15:36) RASH, hives aspartame Adverse Reaction (Severe, Verified 08/25/24 15:36) Blister lactose [LACTOSE] Adverse Reaction (Unknown, Verified 08/25/24 15:36) DIARRHEA lanolin Allergy (Unknown, Uncoded 08/19/24 08:47) rash Do you need a note to return to daycare/school/sports/work: No HPI HPI Comments History of Present Illness Details History of Present Illness - The patient is a 43 year old female pr esenting with persistent sinus pressure and sore throat. - Symptoms have persisted for nearly thr ee weeks and include sinus pressure, muffled hearing, sore throat, and nasal congestion. - The patient was prescribed Augmentin 6 d ago; some improvement was noted, but symptoms remain present. - Previous use of Flonase may not have b een effective due to improper administration technique. - Complaints of sinus tenderness and min imal nasal drainage continue. Physical Exam General: Cooperative, healthy appearing, comfortable, no acute distress and well developed Orientation: Patient oriented x3 Limitations: No limitations Head: Normal to inspection Ears: Hearing muffled, fluid present, TM normal bilaterally Nose: Normal external nose present, some clear drainage noted Face and sinus: sinuses tender upon palpation Eyes: Appearance normal, both eyes and all related structures Neck: Normal visual inspection and Yes full ROM Respiratory: Normal respiratory effort and able to speak in complete sentences. Skin: No rashes or lesions noted Neuro: Patient oriented x3 Extremities: Normal to inspection [facility] Medical History Pre-diabetes Surgical History No pertinent past surgical history Family History Mother No problems noted. Father No problems noted. 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 Current occupational exposures/hazards: No Cognitive needs: No Hearing needs: No Vision needs: No Review of Systems Const All systems reviewed & are unremarkable except as noted in HPI and below Physical Exam Vital Signs: Last Vital Signs Temp 98.2 F 08/25/24 15:35 Pulse 72 08/25/24 15:35 Resp 20 08/25/24 15:35 BP 124/76 08/25/24 15:35 Pulse Ox 99 08/25/24 15:35 Oxygen Delivery Method Room Air 08/25/24 15:35 Assessment & Plan Assessment & Plan (1) Sinusitis, acute: Code(s): J01.90 - Acute sinusitis, unspecified Qualifiers: Recurrence: non-recurrent Sinusitis location: frontal Qualified Code(s): J01.10 - Acute frontal sinusitis, unspecified Plan: The patient will commence a 40 mg daily prednisone regimen for five days to manage persistent sinusitis symptoms, following inadequate relief from Augmentin. Flonase administration will be optimized by altering the technique to ensure effective sinus penetration. Continued use of existing medications will be maintained to address potential bacterial etiology. Nagging sore throat in conjunction with redness during examination suggests pharyngitis, warranting close observation. Peak prednisone activity should coincide with improvement by next week. Administration timing for prednisone is advised in the mornings to prevent insomnia. Patient was informed and verbally consented to the use of an ambient scribe for clinic note documentation during this visit. Medications: New prednisone 40 mg (2 x 20 mg) PO DAILY 10 tabs 0RF Coding Level of Care Code Est Pt Level 3 (68536) Diagnoses Acute non-recurrent frontal sinusitis J01.10 Recurrence: non-recurrent Sinusitis location: frontal
--- OUTSIDE RECORDS SUMMARY | 2024-08-25 18:45 | XMS_ITS | Data Portability ---
Author Organization [facility] [address] Address [address] [place] [address] Care Team Providers Care Emery Grinder Name Role Phone SHEREEN MCCULLOUGH Primary Care Provider Assessment No assessment recorded. Plan of Treatment Reminders Order Date Submit Date Provider Last Modified By Organization Details Last Modified Time Details Appointments None recorded. Lab SARS CoV 2 (COVID-19) Ag, QL, IA, upper respiratory specimen 2022 023 [email or web address] [facility], [address] [place], [address], 3 12:34:04 Referral None recorded. Procedures None recorded. Surgeries None recorded. Imaging XR, chest, 2 view - Persistent cough for 2 weeks . exp wheezing on exam 2022 023 [email or web address] [facility], [address] [place] [address], [place], [address], 3 13:23:44 Medication Orders doxycycline hyclate 100 mg capsule 2022 023 [id number], [address] [place], [address], 3 13:22:42 levofloxaci n 750 mg tablet 2022 023 [facility], [address] [place], [address], 3 13:22:42 benzonatate 200 mg capsule 2022 023 [id number], [address] [place], [address], 3 12:34:04 albuterol sulfate HFA 90 mcg/actuati on aerosol inhaler [email or web address], [address] [place], [address], 16:23:44 prednisone 20 mg tablet 2022 023 [facility], [address] [place], [address], 13:02:15 Patient TargetsNo targets recorded. Patient Instructions Encounter Date Encounter Id Patient Instructions Last Modified By Organization Details Last Modified Time 02/24/2023 [id number] cough: care instructions [email or web address] Not available 02/24/2023 12:34:01 Reason for Referral None Reported. Results Created Date Observation Date Name Description Value Unit Range Abnormal Flag Note LastModifiedBy Organization Detail LastModifiedTime 02/25/2002/24/2023 SARS CoV 2 (COVI D-19) Ag, QL, IA, upper respi rator y speci men Unknown Analyte negati ve Not Available [address] [place], [address], 02/24/2023 12:09:14 02/25/20 23 02/24/2023 XR, chest , 2 view No observ ation record ed. [email or web address] [facility] [address] [facility], [place], [address], 02/24/2023 15:05:07 Result Notes None recorded. Problems Name Problem SNOMED Code Status Onset Date Resolution Date Notes Provider Name and Address Organization Details Recorded Time Hypertensive disorder 74339694 Active 2022 GERTRUDIS DRINKCARLO null, [place] - [facility] 12:04:57 Seasonal allergic rhinitis 950629749 Active 2022 GERTRUDIS DRINKWINE null, [place] - [facility] 3 12:05:06 Problem Notes None recorded. Procedures Surgical History None recorded. Imaging Results Imaging Date Name Status LastModified by Organiz [facility] Details LastModified Time 02/24/2023 XR, chest, 2 view completed [email or web address] [facility] [address] [place], [address], 02/24/2023 15:05:07 Procedure Notes None recorded. Medical Equipment None Reported. Allergies Allergen ID Allergen Name Allergen Category Reaction Reaction Severity Criticality Documentation Date Start Date Code Code System Note Provider Name and Address Organization Details Recorded Time 297533 Substance with sulfonami de structure and antibacte rial mechanism of action (substanc e) medicatio n hives Not available Not available 02/24/2023 41643 8003 SNOMED GERTRUDIS DRINKWINE null, [place] - [facility] 3 12:02:59 298737 Ceclor medicatio n hives Not available Not available 02/24/2023 12812 5 RxNorm GERTRUDIS DRINKWINE null, [place] - [facility] 3 12:03:13 895082 aspartame food,medi cation rash Not available Not available 02/24/2023 40000 24 RxNorm GERTRUDIS DRINKWINE null, [place] - [facility] 3 12:03:30 031327 lanolin environme nt,medica tion rash Not available [...] Updated DateTime 3 170.18 cm 31.3 kg/m2 22008.4 7 g 0 97.7 [degF] 18 /min [...] SNOMED-CT Code Diagnosis ICD10 Code Diagnosis Note [id number] [facility] [address] [place] [address] 02/08/2022 11:50:40 02/08/2022 13:30:14 [id number] [address] [facility] [place] [address] 04/25/2022 08:28:09 04/25/2022 10:47:42 [id number] [address] [place] [address] 03/31/2022 16:54:40 03/31/2022 17:43:41 [id number] Dominique Tavares NP [address] [place] [address] 02/24/2023 11:35:30 02/24/2023 13:23:44 Respiratory tract congestion and cough 195008051 R05.9 Based on your Presentati on, Exam, [...] . Severe Headache Thank you for using [facility] today, please feel free to contact our office if you have any questions or concerns. Community acquired pneumonia [id number] J18.9 Health Concerns Section Related Observation LastModified by Organization Detai ls LastModified Time None Recorded Concern Status LastModified by Organization Details LastModified Time None Recorded Advance Directives Directive None Recorded Payers Encounter Date Sequence Insurance Name Policy Number Policy Grubbs Covered Member ID Grubbs Member ID Guarantor Name 02/08/2022 1 [facility] (MEDICAID HMO) [id number] September Zeferino [id number] September Haugen 03/31/2022 1 [facility] (MEDICAID HMO) [id number] Abi Zeferino [id number] September Zeferino 02/24/2023 1 [facility] (MEDICAID HMO) [id number] Abi M Zeferino [id number] September Haugen Notes Date Note Type Note Provider Name [...] Dominique Tavares NP [address] [place], [address], [place] - [facility] 02/24/2023 16:32:04 OBGyn Episode No OBEpisode recorded.
== END 2024-08-25 16:30 | disposition home or self-care (01) ==
PROVIDERS: PCP Family Medicine; Visit Provider Physician Assistant
DX: J01.10 Acute frontal sinusitis, unspecified (principal)

== ENCOUNTER → 2024-08-25 15:29 | Outpatient (BNVA) | payer OTHER, SELFPAY | PROVIDERS: PCP Family Medicine | DX: J01.10 Acute frontal sinusitis, unspecified (principal) | CPT/HCPCS: 99212 ==

== ENCOUNTER 2024-09-10 15:43 | Outpatient (AMB) | payer OTHER, SELFPAY ==
--- NOTE | 2024-09-10 15:52 | AM.OFFWIN_ITS ---
Intake Vital Signs 09/10/24 15:54 Weight 221 lb BP 112/76 Blood Pressure Location Lt brachial Position Sitting Pulse 103 H Pulse Source Pulse Oximeter Pulse Oximetry (%) 97 Oxygen Delivery Method Room Air Intake Visit Reasons: EP-sinus pain Intake Note: Patient here for sinus pain that has been present for over 1 month now. Patient Tobacco Use Status: Current everyday Tobacco user Allergies cefaclor [From CECLOR] Allergy (Intermediate, Verified 09/10/24 15:53) RASH, hives Sulfa (Sulfonamide Antibiotics) [SULFA (SULFONAMIDE ANTIBIOTICS)] Allergy (Intermediate, Verified 09/10/24 15:53) RASH, hives aspartame Adverse Reaction (Severe, Verified 09/10/24 15:53) Blister lactose [LACTOSE] Adverse Reaction (Unknown, Verified 09/10/24 15:53) DIARRHEA lanolin Allergy (Unknown, Uncoded 09/10/24 15:53) rash Do you need a note to return to daycare/school/sports/work: No HPI HPI Comments History of Present Illness Details History - The patient is a 43-year-old female pr esenting with ongoing sinus infection. - On August 19, the patient was diag nosed with a sinus infection following negative viral panel results and was treated with Augmentin. - On August 25, after inadequate relief, prednisone was prescribed, however, symptomatology persisted. - The patient sought emergency care, was administered doxycycline, and upon course completion, showed temporary improvement, yet declined afterward. - The patient described severe sinus pre ssure radiating to cheeks, supported by blurred vision and photophobia. - Multiple ER visits involved a CT scan identification of sinus fluid remaining. - Jgty-vet-flahnde medications, includin g Flonase, Sudafed, ibuprofen and acetaminophen, provided inadequate symptomatic relief. - The patient is emotionally affected by the persistent condition and chronic symptoms impacting her ability to work. The headaches are the worst part of the symptoms she is having and she is unable to manage them with hwrv-yal-kjrbsqv medications - she does have an appointment with an e ar nose and throat doctor on September 14. Physical Exam General: Cooperative, healthy appearing, comfortable and slightly teary Orientation/consciousness: Patient oriented x3 Limitations: No limitations Head: Normal to inspection Ears: Hearing grossly normal bilaterally, external ears normal Nose: Normal external nose present, Normal nares present and No nasal discharge present Face and sinus: Normal facial exam Eyes: Appearance normal, both eyes and all related structures Neck: Normal visual inspection Respiratory:Normal respiratory effort, able to speak in complete sentences, no respiratory distress, not tachypneic, no tripod positioning and no use of accessory muscles Skin: No rashes or lesions noted Neuro: Patient oriented x3 Extremities: Normal to inspection and Yes no clubbing, cyanosis or edema PFSH Medical History Pre-diabetes Surgical History No pertinent past surgical history Family History Mother No problems noted. Father No problems noted. Social History Housing: House Alcohol intake: never Patient Tobacco Use Status: Current everyday Tobacco user Cigarette Packs Per Day: 0.5 Cigarettes Per Day: 10 Years Smoked: 16 e-Cigarette/Vaping Use: Never Used Second Hand Smoke Exposure: No service: No Current occupational status: employed Current occupation: [employer] Current occupational exposures/hazards: No Cognitive needs: No Hearing needs: No Vision needs: No Review of Systems Const All systems reviewed & are unremarkable except as noted in HPI and below Physical Exam Vital Signs: Last Vital Signs Pulse 103 H 09/10/24 15:54 BP 112/76 09/10/24 15:54 Pulse Ox 97 09/10/24 15:54 Oxygen Delivery Method Room Air 09/10/24 15:54 Assessment & Plan Assessment & Plan (1) Sinusitis, acute: Code(s): J01.90 - Acute sinusitis, unspecified Qualifiers: Sinusitis location: frontal Recurrence: non-recurrent Qualified Code(s): J01.10 - Acute frontal sinusitis, unspecified Plan: The patient is experiencing persistent sinusitis unresponsive to previous treatments with Augmentin, doxycycline, and prednisone. She continues to experience sinus fluid accumulation confirmed by CT scan. Medications, including Flonase and Sudafed, were discussed for further symptomatic relief. Efforts are being made to manage pain with Tylenol, but due caution was advised regarding dosage. Coverage for missed work and upcoming appointments for further evaluation are part of ongoing management. The focus remains on optimizing treatment to improve symptoms and quality of life. We did discuss Fioricet for her headaches that seems to be her biggest complaint today, there is a severe interaction with her control and reading through it, she was okay with the interaction because she is not sexually active. She understands it could cause breakthrough bleeding she could get and it could cause defects like cleft palate. As she is not sexually active, she states that it is not an issue for her and she really just wants some relief from her headache. So we did send a prescription after this thorough discussion. Encourage patient to make sure she goes to the ENT appointment on September 14. Patient was informed and verbally consented to the use of an ambient scribe for clinic note documentation during this visit Medications: New azmncitlld-dmntvubtwyidz-ltst 50-300-40 mg (Fioricet) 1 cap PO Q6H PRN 7 caps 0RF headache Coding Level of Care Code Est Pt Level 3 (76565) Diagnoses Acute non-recurrent frontal sinusitis J01.10 Sinusitis location: frontal Recurrence: non-recurrent
[2024-09-10 15:54] VITALS: BP 112/76; PULSE 103; O2SAT 97
--- OUTSIDE RECORDS SUMMARY | 2024-09-10 17:26 | XMS_ITS | Continuity of Care Document ---
Author Organization [facility] ter Address [address] [place] [place] [id number]- Care Team Providers Care Quality Improvement Coordinator (Rn) Name Role Phone Marquise Zarate MD Primary Care Physician [place] [facility] [place] - 09/04/[address] [address]- Discharge Disposition: A-D/C Home Attending Physician: Blanca Vogel MD Admitting Physician: Blanca Vogel MD Referring Physician: Not on Staff, Referring MD Encounter Type: Disch ES Allergies, Adverse Reactions, Alerts Substance Criticality Severity Reaction Reaction Severity Status sulfADIAZINE Active Ceclor Active Immunizations Given and Recorded Vaccine Date Status Refusal Reason tetanus/diphtheria/pertussis, acel(Tdap) 01/29/20 Given Medications Ambien 10 mg oral tablet 1 tablet = 10 mg, By Mouth, Daily at bedtime, PRN for sleep, 0 Refills, Maintenance, 11/05/15 1:06:36 PM EDT, Tablet Start Date: 11/05/15 Status: Ordered Repeat number: 1 amoxicillin-clavulanate 875 mg-125 mg oral tablet 1 tablet, By Mouth, Every 12 hours, for 14 days, # 28 tablet, 0 Refills, Acute 09/18/24 6:54:00 PM EDT, 09/04/24 6:54:00 PM EDT, Tablet, [facility]/pharmacy #[id number], Partial fill upon patient request if the prescription is for a schedule II opioid drug., 170, cm, 09/04/24 14:26:00 EDT, Height, 100, kg, 09/04/24 14:26:00 EDT, Dry Weight Start Date: 09/04/24 Stop Date: 09/18/24 Status: Ordered Quantity: 28.0 Unit: tablet Repeat number: 1 doxycycline hyclate 100 mg oral tablet 1 tablet = 100 mg, By Mouth, 2 times a day, for 10 days, # 20 tablet, 0 Refills, Acute 09/07/24 11:18:00 PM EDT, 08/28/24 11:18:00 PM EST, Tablet, [facility]/pharmacy #[id number], Partial fill upon patient request if the prescription is for a schedule II opioid drug., 170, cm, 08/28/24 19:32:00 EST, Height, 100, kg, 08/28/24 19:32:00 EST, Dry Weight Start Date: 08/28/24 Stop Date: 09/07/24 Status: Ordered Quantity: 20.0 Unit: tablet Repeat number: 1 erythromycin 0.5% ophthalmic ointment 0.5 inches, Eye, Right, 4 times a day, # 4 Gm, 0 Refills, Acute 11/11/15 3:15:00 PM EDT, 11/05/15 2:39:05 PM EDT, Ophth Ointment Start Date: 11/05/15 Stop Date: 11/11/15 Status: Ordered Quantity: 4.0 Unit: g Repeat number: 1 ibuprofen 800 mg oral tablet 800 mg, 1, tablet, By Mouth, Every 6 hours, # 40 tablet, Refills 0, Tot. Refills 0, Maintenance, 11/05/15 2:39:32 PM EDT, Print Requisition Start Date: 11/05/15 Status: Ordered Quantity: 40.0 Unit: tablet Repeat number: 1 predniSONE 10 mg oral tablet See Instructions, Taper: 4 tabs daily x 3 days, 3 tabs daily x 3 days, 2 tabs daily x 3 days, 1 tabdaily x 3 days, then one half tab daily for 3 days with food, # 32 tablet, 0 Refills, Acute 259:00:00 AM EDT, 09/04/24 7:02:00 PM EDT, [facility]/pharmacy #[id number], Partial fill upon patient request if the prescription is for a schedule II opioid drug., 170, cm, 09/04/24 14:26:00 EDT, Height, 100, kg, 09/04/24 14:26:00 EDT, Dry Weight Start Date: 09/04/24 Stop Date: 09/20/24 Status: Ordered Quantity: 32.0 Unit: tablet Repeat number: 1 PROzac 20 mg oral capsule 20 mg, 1, capsule, By Mouth, Daily, Refills 0, Maintenance, 11/05/15 12:59:58 PM EDT Start Date: 11/05/15 Status: Ordered Repeat number: 1 Reglan 5 mg oral tablet 1 tablet = 5 mg, By Mouth, 4 times a day, PRN Headache, for 3 days, # 12 tablet, 0 Refills, Acute 09/07/24 7:05:00 PM EDT, 09/04/24 7:05:00 PM EDT, Tablet, [facility]/pharmacy #[id number], Partial fill upon patientrequest if the prescription is for a schedule II opioid drug., 170, cm, 09/04/24 14:26:00 EDT, Height, 100, kg, 09/04/24 14:26:00 EDT, Dry Weight Start Date: 09/04/24 Stop Date: 09/07/24 Status: Ordered Quantity: 12.0 Unit: tablet Repeat number: 1 Problem List Condition Confirmation Course Effective Dates Status Health St atus Informant Obese class I Confirmed Active Results Radiology Reports * Exam Date Time Procedure Performing Provider Status 09/04/24 5:[address] Temp Bones W/ Contrast Gail Blank; Jordy (Verified) Notes: (CT Temp Bones W/ Contrast) Reason For Exam: Conductive Hearing Loss RESULT: CT Temp Bones W/ Contrast CT Temp Bones W/ Contrast INDICATION: Hx of Present Illness: Patient reports persistent sinusitis despite 2 rounds of abx. Presents with headache and both ears feel blocked.; Reason: Conductive Hearing Loss; Clinical Question(s): Other:; abscess, mass / Other: TECHNIQUE: Thin section axial imaging was performed through the temporal bones with intravenous contrast. 100 cc of Isovue 300 was administered intravenously. Coronal reformats were created. Age-based protocol was used to optimize exposure parameters. RADIATION DOSE PARAMETERS: COMPARISON: None FINDINGS: RIGHT TEMPORAL BONE: Mastoid: Trace fluid within the inferior-most right mastoid air cavities. External canal and tympanic membrane: The external canal and tympanic membrane appear normal. Middle ear: There is normal appearance to the ossicular chain. No mass or inflammatory change is appreciated. Prussak's space is clear. The scutum is sharp. Inner ear: The otic capsule appears normal. The cochlea, vestibule, and semicircular canals appear well formed without anomaly or fistula. The IAC appears normal in size. Vestibular aqueduct is normal in caliber. Semicircular canals are covered by bone. Facial Nerve: The facial nerve course appears normal. Vessels: There is no aberrant internal carotid artery or high riding jugular bulb. There is normal enhancement in the sigmoid sinus and jugular bulb, as well as the ICA. LEFT TEMPORAL BONE: Mastoid: The mastoid appears well pneumatized and aerated. External canal and tympanic membrane: The external canal and tympanic membrane appear normal. Middle ear: There is normal appearance to the ossicular chain. No mass or inflammatory change is appreciated. Prussak's space is clear. The scutum is sharp. Inner ear: The otic capsule appears normal. The cochlea, vestibule, and semicircular canals appear well formed without anomaly or fistula. The IAC appears normal in size. Vestibular aqueduct is normal in caliber. Semicircular canals are covered by bone. Facial Nerve: The facial nerve course appears normal. Vessels: There is no aberrant internal carotid artery or high riding jugular bulb. There is normal enhancement in the sigmoid sinus and jugular bulb, as well as the ICA. OTHER FINDINGS: Polypoid mucosal thickening in bilateral maxillary sinuses, left worse than right. Visualized intracranial structures are within normal limits. Remaining visualized extracranial soft tissues are unremarkable. IMPRESSION: Trace nonspecific right mastoid fluid within the inferior most mastoid air cavities. No evidence ofmastoiditis or otitis media. WSN: [id number] Ordering Physician: Rodney Kaur Dictated By: Christiano Queen MD Dictated Date/Time: 09/04/24 5:25 pm Reviewed By: Christiano Queen MD Signed By: Christiano Queen MD Signed Date/Time: 09/04/24 5:25 pm Transcribed By: MELCHOR Transcribed Date/Time: 09/04/24 5:22 pm * Exam Date Time Procedure Performing Provider Status 09/04/24 5:[address] Maxilloface W/ Contrast Kori Blank (Verified) Notes: (CT Maxilloface W/ Contrast) Reason For Exam: Facial Pain RESULT: CT Maxilloface W/ Contrast CT Maxilloface W/ Contrast INDICATION: Hx of Present Illness: Patient reports persistent sinusitis despite 2 rounds of abx. Presents with headache and both ears feel blocked.; Reason: Facial Pain; Clinical Question(s): Tumor; abscess, anatomic abnormality / Tumor TECHNIQUE: Maxillofacial CT was performed with intravenous contrast. cc of was administered intravenously. Reformats were performed in 3 planes. Automatic tube modulation and/or iterative dose reconstruction were used optimize scan parameters. CTDIvol Head: 31.35 mGy, DLP Head: 916 mGy*cm. COMPARISON: None FINDINGS: Dry House Worker View Findings, Lines and Tubes: None. Frontal Sinuses: The frontal sinuses are normally pneumatized and are clear. The frontal recesses are patent. Ethmoid Air Cells: The ethmoid air cells are clear. Right Maxillary Sinus: Moderately extensive polypoid mucoperiosteal thickening throughout the lowerhalf of the right maxillary sinus. Mild narrowing of the right OMC due to mucosal thickening and expanded right middle turbinate stefania bullosa see coronal image 72 series 204. Left Maxillary Sinus: Severe polypoid mucoperiosteal thickening throughout the right maxillary sinus filling the majority of the left maxillary sinus. Patent ostiomeatal complex. Sphenoid Sinuses: Sphenoid sinuses are normally aerated and clear. Ostia are patent. Nasal Septum: Normal. No septal deviation or perforation. Turbinates: Stefania bullosa of the right middle and superior turbinates. Nasal Airway: Patent. Mastoids: Trace nonspecific right mastoid fluid within the inferior most mastoid air cavities. Otherwise bilateral mastoid and middle ear cavities are clear. Bones: No fracture or osseous erosion. Other findings: Visualized intracranial structures are unremarkable. The visualized deep and superficial soft tissues of the face are unremarkable. IMPRESSION: Bilateral polypoid mucoperiosteal thickening throughout the maxillary sinuses, more extensive on the left. The remaining sinuses are clear. Trace nonspecific right mastoid fluid within the inferior-most mastoid air cavities. No evidence ofmastoiditis or otitis media. WSN: [id number] Ordering Physician: Rodney Kaur Dictated By: Christiano Queen MD Dictated Date/Time: 09/04/24 5:23 pm Reviewed By: Christiano Queen MD Signed By: Christiano Queen MD Signed Date/Time: 09/04/24 5:23 pm Transcribed By: MELCHOR Transcribed Date/Time: 09/04/24 5:08 pm Vital Signs Most recent to oldest [Reference Range]: 1 2 Height 170 cm (3/15/25 2:26 PM) 170 cm (09/04/24 2:18 PM) Weight 100 kg (09/04/24 2:26 PM) 100 kg (09/04/24 2:18 PM) Oxygen Saturation [94-100 %] 100 % (09/04/24 4:30 PM) 100 % (09/04/24 2:18 PM) Pulse Rate [55-90 bpm] 76 bpm (09/04/24 4:30 PM) 68 bpm (09/04/24 2:18 PM) Body Mass Index [18.5-24.99 kg/m2] 34.6 kg/m2 *>HHI* (09/04/24 2:18 PM) Blood Pressure [90-138/55-84 mm Hg] 105/ 66mm Hg (09/04/24 4:30 PM) 135/79mm Hg (09/04/24 2:18 PM) Respiratory Rate [16-30 br/min] 16 br/mi n (09/04/24 4:30 PM) 18 br/min (09/04/24 2:18 PM) Temperature [96.8-100.4 DegF] 97.3 DegF (09/04/24 4:30 PM) 98.2 DegF (09/04/24 2:18 PM) Mode of Delivery (Oxygen) Room air (09/04/24 4:30 PM) Room air (09/04/24 2:18 PM) Blood pressure sites Arm, left (09/04/24 4:30 PM) Arm, left (09/04/24 2:18 PM) Temperature Route Oral (09/04/24 4:30 PM) Oral (09/04/24 2:18 PM) Dry Weight 100 kg (09/04/24 2:26 PM) 100 kg (09/04/24 2:18 PM) Weight Obtained Via Patient/family state d (09/04/24 2:18 PM) Dry Weight Obtained Via Patient/family s tated (09/04/24 2:18 PM) Social History Social History Type Response Smoking Status Current every day sm oker; Type: Cigarettes; Tobacco use times per day: 1PPD; entered on: 11/05/15 Sex Female Sex Representation Female (finding) Note * Rodney Prather: PERFORM, SIGN, VERIFY Event Display: Patient Education Handout Authored Date: [id number] * Rodney Prather: PERFORM Event Display: Patient Education Leaflets Authored Date: [id number] Sinusitis (Antibiotic Treatment) ?? [id number] Sinusitis (Antibiotic Treatment) The sinuses are air-filled spaces within the bones of the face. They connect to the inside of the nose.??Sinusitis??is an inflammation of the tissue that lines the sinuses. Sinusitis can occur duringa cold. It can also happen due to seasonal allergies to pollens, and other irritants in the air. Sinusitis can cause symptoms of sinus congestion and a feeling of fullness. A sinus infection causes fever, headache, facial pain, and stuffy or runny nose. There is often green or yellow fluid drainingfrom the nose or into the back of the throat (postnasal drip). You have been given antibiotics to treat this condition. Home care The treatment should focus on modulating triggers, reducing inflammation, and eradicating the infection. ??? Take the full course of antibiotics as instructed. Don't stop taking them, even when you feel better. ??? Drink plenty of water, hot tea, and other liquids as directed by the health care provider. This may help thin nasal mucus. It also may help your sinuses drain fluids. ??? Heat may helpsoothe painful areas of your face. Use a towel soaked in hot water. Or splicing machine operator the shower and direct the warm spray onto your face. Using a vaporizer along with a menthol rub at night may also help soothe symptoms. ??? An??expectorant??with guaifenesin may help thin nasal mucus and help your sinuse s drain fluids. Talk with your provider or pharmacists before taking an fzjx-jvr-dciedov (OTC) medicine if you have any questions about it or its side effects. ??? You can use an OTC??decongestant,??unless a similar medicine was prescribed to you. Nasal sprays work the fastest. Use one that contains phenylephrine or oxymetazoline. First blow your nose gently. Then use the spray. Don't use these medicines more often than directed on the label. If you do, your symptoms may get worse. Instead you may take pills that contain pseudoephedrine. Don???t use products that combine multiple medicines. This is because side effects may be increased. Read labels. You can also ask the pharmacist for help. (People with high blood pressure or heart disease should not use decongestants. They can raise blood pressure or cause abnormal heart rhythms.) Talk with your provider or pharmacist before taking them if you have any medical conditions. ??? OTC??antihistamines may help if allergies caused your sinusitis. Talk with your provider or pharmacist if you have any questions about the medicine. ??? Ask your provider about the use of intranasal steroids. They decrease the swelling, which may help relieve the obstruction. They tend to work better if allergies are causing the sinus inflammation. ??? Nasal rinses or irrigation may help to soothe your symptoms. It's very important to use these products only as directed. Use sterile water or sterile saline solution and not tap water. Tap water may contain germs that can cause infection in the brain. Don't rinse with excess pressure. This may spread the infection to other areas in your sinuses or head. Always clean your nasal irrigation devices before and after use. Ask your health care provider or pharmacist if you have questions about using these products. ??? Use acetaminophen, naproxen, or ibuprofen to control pain, unless another pain medicine was prescribed to you. Talk with your provider before using these medicines if you take aspirin or another blood thinner, have chronic liver or kidney disease, or ever had a stomach ulcer. Never give aspirin to anyone under age 18 without first talking to their provider. It is associated with Alise's syndrome. This can cause severe liver damage. ??? Don't smoke. This can make symptoms worse. ??? Use a humidifier to moisten the air at home. Clean it regularly according to the directions. ?? Follow-up care Follow up with your health care provider as advised. ?? When to get medical advice Contact your health care provider if you have: ??? Facial pain or headache that gets worse. ??? Symptoms don't go away in 10 days. ??? A fever of??100.4??F (38??C)??or higher, or as directed by your health care provider. ?? Call 911 Call 911 if you have: ??? A seizure. ??? Trouble breathing. ??? Dizziness or you faint. ??? Fingernails, skin, or lips that look blue, purple, or santa. ??? A severe headache that doesn't go away. ???A stiff neck. ??? Unusual drowsiness or confusion. ??? Vision problems, such as blurred or double vision. ??? Swelling of your forehead or eyelids. ?? Prevention Here are steps you can take to help prevent an infection: ??? Keep good hand washing habits. ??? Don???t have close contact with people who have sore throats, colds, or other upper respiratory infections. ??? Don???t smoke, and stay away from secondhand smoke. ??? Stay up to date with all of your vaccines. ?? Last Reviewed Date: 2024 ?? 2680-1979 [employer] All rights reserved. This information is not intended as a substitute for professional medical care. Always follow your healthcare professional's instructions. ?? Patient Care team information Care Team Personnel Name: Elliot PORTILLO , Marquise Reynolds Position: [facility] Outreach Member Role: PCP Address: [address] [place] [address] Telecom: Insurance Providers Guarantor name: GISSEL Health Plan Information #: 1 Payer: [employer] Member Number: [id number] Policy Number: GISSEL Group Number: [id number] Health Plan Information #: 2 Payer: [employer] Member Number: [id number] Policy Number: GISSEL Group Number: NA
--- OUTSIDE RECORDS SUMMARY | 2024-09-10 17:26 | XMS_ITS | Continuity of Care Document ---
Author Organization [facility] ter Address [address] [place] [id number]- Care Team Providers Care Cork Tipper Name Role Phone Elliot PORTILLO, Marquise Reynolds Primary Care Physician Encounter [facility] [place] ACCT R [id number] Date(s): 08/28/24 - 08/28/[address] [address]- Discharge Disposition: A-D/C Home Attending Physician: Cordell Schumacher MD Admitting Physician: Cordell Schumacher MD Referring Physician: Not on Staff, Referring [...] Date: 11/05/15 Status: Ordered Repeat number: 1 doxycycline hyclate 100 mg oral tablet 1 tablet = 100 mg, By Mouth, 2 times a day, for 10 days, # 20 tablet, 0 Refills, Acute 09/07/24 11:18:00 PM EDT, 08/28/24 11:18:00 PM EST, Tablet, [facility]/pharmacy #[id number], Partial fill upon patient request if [...] Quantity: 40.0 Unit: tablet Repeat number: 1 PROzac 20 mg oral capsule 20 mg, 1, capsule, By Mouth, Daily, Refills 0, Maintenance, 11/05/15 12:59:58 PM EDT Start Date: 11/05/15 Status: Ordered Repeat number: 1 Problem List Condition Confirmation Course Effective Dates Status Health St atus Informant Obese class I Confirmed Active Results Radiology Reports * Exam Date Time Procedure Performing Provider Status 08/28/24 10:57 PM Chest 2 Views Frontal and Lat Esther Ortez (Verified) Notes: (Chest 2 Views Frontal and Lat) Reason For Exam: Cough RESULT: Chest 2 Views Frontal and Lat Chest 2 Views Frontal and Lat Hx of Present Illness: Pt reporting continued congestion, headache, both ears blocked decreased appetite and increased fatigue, has been to UC 3 times, taken antibiotics, on prednisone, otc decongestants without relief; Reason: Cough; Clinical Question(s): Pneumonia COMPARISON: None. FINDINGS: LINES AND TUBES: None. LUNGS AND PLEURA: Clear lungs. Normal pulmonary vascularity. No pleural effusion. No pneumothorax. HEART, MEDIASTINUM AND TREASURE: Heart is normal in size. Normal mediastinal and hilar contour. BONES AND SOFT TISSUES: No acute abnormality. IMPRESSION: No acute abnormality. WSN: [id number] Ordering Physician: Rodney Kaur Dictated By: Christiano Queen MD Dictated Date/Time: 08/28/24 11:04 p Reviewed By: Christiano Queen MD Signed By: Christiano Queen MD Signed Date/Time: 08/28/24 11:04 pm Transcribed By: MELCHOR Transcribed Date/Time: 08/28/24 11:04 pm Vital Signs Most recent to oldest [Reference Range]: 1 2 3 Height 170 cm (08/28/24 11:33 PM) 170 cm (08/28/24:32 PM) Weight 100 kg (08/28/24 11:33 PM) 100 kg (08/28/24:32 PM) Oxygen Saturation [94-100 %] 100 % (08/28/24:33 PM) 99 % (08/28/24:32 PM) 99 % (08/28/24:28 PM) Pulse Rate [55-90 bpm] 80 bpm (08/28/24:33 PM) 72 bpm (08/28/24:32 PM) 79 bpm (08/28/24: PM) Body Mass Index [18.5-24.99 kg/m2] 34.6 kg/m2 *>HHI* (08/28/24 7:32 PM) Blood Pressure [90-138/55-84 mm Hg] 119/78mm Hg (08/28/24: PM) 124/87mm Hg (08/28/24:32 PM) Respiratory Rate [16-30 br/min] 16 br/min (08/28/24:33 PM) 18 br/min (08/28/24:32 PM) 18 br/min (08/28/24:28 PM) Temperature [96.8-100.4 DegF] 97.7 DegF (08/28/24: PM) 98.4 DegF (08/28/24:32 PM) Mode of Delivery (Oxygen) Room air (08/28/24 11:33 PM) Room air (08/28/24:32 PM) Room air (08/28/24:28 PM) Blood pressure sites Arm, right (08/28/24:33 PM) Arm, left (08/28/24:32 PM) Temperature Route Oral (08/28/24 11:33 PM) Oral (08/28/24 7:32 PM) Dry Weight 100 kg (08/28/24 11:33 PM) 100 kg (08/28/24:32 PM) Weight Obtained Via Patient/family state d (3/8/25 7:32 PM) Dry Weight Obtained Via Patient/family s tated (08/28/24 7:32 PM) Social History Social History Type Response Smoking Status Current every day sm oker; Type: Cigarettes; Tobacco use times per day: 1PPD; entered on: 11/05/15 Sex Sex Representation Female (finding) Note * Rodney Prather: PERFORM, SIGN, VERIFY Event Display: Patient Education Handout Authored Date: [id number] * Rodney Prather: PERFORM Event Display: Patient Education Leaflets Authored Date: [id number] Sinusitis (Antibiotic Treatment) ?? [id number] Sinusitis (Antibiotic Treatment) The sinuses are air-filled [...] a towel soaked in hot water. Or window machine operator the shower and direct the warm spray onto your face. Using a vaporizer along with a menthol rub at night may also help soothe symptoms. ??? An??expectorant??with guaifenesin may help thin nasal mucus and help your sinuse s drain fluids. Talk with your provider or pharmacists before taking an ulze-nds-ufwefia (OTC) medicine if you have any questions [...] A severe headache that doesn't go away. ??? A stiff neck. ??? Unusual drowsiness or confusion. [...] vaccines. ?? Last Reviewed Date: 2024 ?? [id number] [employer]. All rights reserved. This information is not intended as a substitute for professional medical care. Always follow your healthcare professional's instructions. ?? Patient Care team information Care Team Personnel Name: Marquise Zarate MD Position: [facility] Outreach Member Role: PCP Address: [address] [place] [address] Telecom: Insurance Providers Guarantor name: GISSEL Health Plan Information #: 1 Payer: [employer] Member Number: [id number] Policy Number: NA Group Number: [id number] Health Plan Information #: 2 Payer: [employer] Member Number: [id number] Policy Number: NA Group Number: NA
--- OUTSIDE RECORDS SUMMARY | 2024-09-10 17:26 | XMS_ITS | Data Portability ---
Author Organization [facility], [facility] Address [address] [place] [address] Care Team Providers Care Java Technical Manager Name Role Phone SHEREEN MCCULLOUGH Primary Care Provider Assessment No assessment recorded. Plan of Treatment Reminders Order Date Submit Date Provider Last Modified By Organization Details Last Modified Time Details Appointments None recorded. Lab SARS CoV 2 (COVID-19) Ag, QL, IA, upper respiratory specimen 2022 023 [email or web address] [facility], [address] [place], [address], 3 12:34:04 Referral None recorded. Procedures None recorded. Surgeries None recorded. Imaging XR, chest, 2 view - Persistent cough for 2 weeks . exp wheezing on exam 2022 023 [email or web address] [facility], [address] [place] [address], [place], [address], 3 13:23:44 Medication Orders doxycycline hyclate 100 mg capsule 2022 023 [facility] #1291, [address] [place], [address], 3 13:22:42 levofloxaci n 750 mg tablet 2022 023 [facility] #1291, [address] [place], [address], 3 13:22:42 benzonatate 200 mg capsule 2022 023 [facility] #1291, [address] [place], [address], 3 12:34:04 albuterol sulfate HFA 90 mcg/actuati on aerosol inhaler [email or web address]/Pharmacy #1291, [address] [place], [address], 16:23:44 prednisone 20 mg tablet 2022 023 [facility] #1291, [address] [place], [address], 13:02:15 Patient TargetsNo targets recorded. Patient Instructions Encounter Date Encounter Id Patient Instructions Last Modified By Organization Details Last Modified Time 02/24/2023 [id number] cough: care instructions [email or web address] Not available 02/24/2023 12:34:01 Reason for Referral None Reported. Results Created Date Observation Date Name Description Value Unit Range Abnormal Flag Note LastModifiedBy Organization Detail LastModifiedTime 02/25/2002/24/2023 SARS CoV 2 (COVI D-19) Ag, QL, IA, upper respi rator y speci men Unknown Analyte negati ve Not Available [address] [place], [address], 02/24/2023 12:09:14 02/25/20 23 02/24/2023 XR, chest , 2 view No observ ation record ed. [email or web address] [facility] [address] [facility], [place], [address], 02/24/2023 15:05:07 Result Notes None recorded. Problems Name Problem SNOMED Code Status Onset Date Resolution Date Notes Provider Name and Address Organization Details Recorded Time Hypertensive disorder 59615105 Active 2022 GERTRUDIS DRINKCARLO null, [place] - [facility] 12:04:57 Seasonal allergic rhinitis 342416211 Active 2022 GERTRUDIS DRINKWINE null, [place] - [facility] 3 12:05:06 Problem Notes None recorded. Procedures Surgical History None recorded. Imaging Results Imaging Date Name Status [facility]Modified [facility] Details LastModified Time 02/24/2023 XR, chest, 2 view completed [email or web address] [facility] [address] [place], [address], 02/24/2023 15:05:07 Procedure Notes None recorded. Medical Equipment None Reported. Allergies Allergen ID Allergen Name Allergen Category Reaction Reaction Severity Criticality Documentation Date Start Date Code Code System Note Provider Name and Address Organization Details Recorded Time 285829 Substance with sulfonami de structure and antibacte rial mechanism of action (substanc e) medicatio n hives Not available Not available 02/24/2023 63805 8003 SNOMED GERTRUDIS DRINKWINE null, [place] - [facility] 3 12:02:59 550410 Ceclor medicatio n hives Not available Not available 02/24/2023 16787 5 RxNorm GERTRUDIS DRINKWINE null, [place] - [facility] 3 12:03:13 828749 aspartame food,medi cation rash Not available Not available 02/24/2023 85677 24 RxNorm GERTRUDIS DRINKWINE null, [place] - [facility] 3 12:03:30 828643 lanolin environme nt,medica tion rash Not available [...] Available Tri-Estaryl la (28) 0.18 mg(7)/0.215 mg(7)/0.25 mg(7)-0.035 mg tablet active Not Available Not Available No t Available Vitals Date Recorded Body height Body mass index (BMI) Body weight Pain severity - 0-10 verbal numeric rating [Score] - Reported Body temperature Respiratory rate Heart rate Oxygen saturation Oxygen saturation in Arterial blood by Pulse oximetry Systolic blood pressure Diastolic blood pressure Provider Name and Address Organization Details Last Updated DateTime 3 170.18 cm 31.3 kg/m2 63494.4 7 g 0 97.7 [degF] 18 /min 82 /min 99 % 99 % 138 mm[Hg] 80 mm[Hg] GERTRUDIS MCNALLY - [facility] 3 12:08:47 Social History [...] SNOMED-CT Code Diagnosis ICD10 Code Diagnosis Note [id number] [address] [facility] [address] [place] [address] 02/08/2022 11:50:40 02/08/2022 13:30:14 [id number] [address] [facility] [place] [address] 04/25/2022 08:28:09 04/25/2022 10:47:42 [id number] [facility] [address] [address] [place] [address] 03/31/2022 16:54:40 03/31/2022 17:43:41 [id number] Dominique Tavares NP [address] [facility] [address] [facility] [address] 02/24/2023 11:35:30 02/24/2023 13:23:44 Respiratory tract congestion and cough [id number] R05.9 Based on your Presentati on, Exam, [...] . Severe Headache Thank you for using [employer] today, please feel free to contact our office if you have any questions or concerns. Community acquired pneumonia [id number] J18.9 Health Concerns Section Related Observation LastModified by Organization Detai ls LastModified Time None Recorded Concern Status LastModified by Organization Details LastModified Time None Recorded Advance Directives Directive None Recorded Payers Encounter Date Sequence Insurance Name Policy Number Policy Grubbs Covered Member ID Grubbs Member ID Guarantor Name 02/08/2022 1 [facility] (MEDICAID HMO) [id number] September M Zeferino [id number] September [place] 03/31/2022 1 [facility] (MEDICAID HMO) [id number] September M Zeferino [id number] September [place] 02/24/2023 1 [facility] (MEDICAID HMO) [id number] September M Zeferino [id number] September [place] Notes Date Note Type Note Provider Name [...] test neg 02/15 Dominique Tavares NP [address] [place], [address], [place] - [facility] 02/24/2023 16:32:04 OBGyn Episode No OBEpisode recorded.
== END 2024-09-10 16:21 | disposition home or self-care (01) ==
PROVIDERS: PCP Family Medicine; Visit Provider Physician Assistant
DX: J01.10 Acute frontal sinusitis, unspecified (principal)

== ENCOUNTER → 2024-09-10 15:43 | Outpatient (BNVA) | payer OTHER, SELFPAY | PROVIDERS: PCP Family Medicine; Visit Provider Physician Assistant | DX: J01.10 Acute frontal sinusitis, unspecified (principal) | CPT/HCPCS: 99212 ==

== ENCOUNTER 2024-09-14 09:56 | Outpatient (RCR) | payer OTHER, SELFPAY ==
--- NOTE | 2024-08-27 10:31 | MHC.OT.OEV ---
[address] [phone] F: [phone] Occupational Therapy Evaluation Patient Name: Abi Mcgarry Diagnosis: (L) wrist pain Date of Onset: Date of Surgery: Attending Provider: Marquise Zarate Prescribed Treatment: MD Follow Up Appointment: History of Current Condition: Patient is a 43 year old (R)handed female with PMHx of pre DM who was referred for pain of the (L)wrist. Patient states she has had pain for 3 years in the thumb and wrist. She reports 0/10 at rest and 6-10/10 pain that is sharp with intermittent numbness/tingling. 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 She lives with her 2 adult children and her son's girl friend. She has difficulty with gripping items, empty the the wash, any gripping, any activity that would put pressure. She plays games on phone and takes care of her cat and dog. 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 Living Situation, Family and/or Social Support: Lives with 2 adult children and son's girlfriend Current Level of Function and Occupation Self Care, Employment, Leisure: Performs self care tasks b (I'ly)ut they are painful Sleep: pain does not wake her up Driving: Vision: Balance: Pain Assessment Pain Score: 10 Pain Scale Used: Numeric (0 - 10) Pain Location and Description: 6-10/10 with movement sharp Aggravating Factors: Alleviating Factors: Not taking any Skin and Soft Tissue Assessment Skin and Soft Tissue: Comments: WFL Nerve assessment Ulnar Nerve: Median Nerve: Radial Nerve: Comments: Sensory Assessment Temperature: Light Touch: Proprioception: Vibration: Comments: Edema Assessment Upper Extremity: Lower Extremity: Comments: Dexterity Assessment Dexterity: Comments: WFL Special Tests Comments: Umair test (+) AROM(PROM) Strength Cervical Cervical Flexion: Cervical Extension: Cervical Lateral Flexion: Cervical Rotation: Comments: Shoulder Flexion: Extension: Abduction: Internal Rotation: External Rotation: Comments: WFL Flexion: Extension: Abduction: Internal Rotation: External Rotation: Comments: WFL Elbow Flexion: Extension: Pronation: Supination: Comments: WFL Flexion: Extension: Pronation: Supination: Comments: WFL Wrist Flexion: 90 Extension: 60 Ulnar Deviation: 30 Radial Deviation: 21 Comments: Flexion: Extension: Ulnar Deviation: Radial Deviation: Comments: WFL Thumb Thumb CMC Flexion: Thumb MCP Flexion: 46* Thumb IP Flexion: 50* Radial Abduction: Palmar Abduction: [place] (Kapandji 0-10): WFL Comments: Digits Index MCP: PIP: DIP: Long MCP: PIP: DIP: Ring MCP: PIP: DIP: Small MCP: PIP: DIP: Comments: WFL Gross Grasp: (L)65lbs. Lateral Pinch: 5 Two-Point Pinch: 5 Three-Jaw Santino: 6 Comments: Patient Education Primary Language: Khmer Advertising Manager Required: No Current Knowledge: Understands information with skills for self-management Teaching Method: Verbal Education Needs Identified on Evaluation: ADL's Exercise Pain How did patient/family demonstrate learning? Patient demonstrates Patient verbalizes Barriers to Learning: None Readiness for Learning: Accepting Who was educated? Patient Comments: Plan of Care Assessment: Based on initial OT evaluation patient presents with impaired ROM, pain and impaired performance during self care tasks. Provocative testing = Umair test (+) indicating De Quervain's tenosynovitis. Quick DASH= 31.8% indicating patient's perceived impairment of the UE during self care tasks. Due to the documented impairments it is recommended that patient receive skilled OT intervention in order for patient to perform self care tasks and work tasks pain free and enhance patient's quality of life. Thank you for your referral. STG Duration: 2 weeks Short Term Goals: Patient will report decreased pain to 8/10 during self care tasks patient will increase IP active flexion by 10* Patient will be (I) with orthosis wear schedule LTG Duration: 4 weeks Rayon Tester Goals: Patient will be (I) with HEP Patient will decrease Quick DASH score by 20% indicating overall UE improvement during self care tasks. Frequency and Duration: The patient will be seen 2x a week for 4 weeks Treatment Plan: Therapeutic Exercise Therapeutic Activity Home Exercise Program Splinting Patient Education Edema Control ADL Training Ultrasound NMES Iontophoresis Paraffin Fluidotherapy MHP Cold Packs Joint Mobilization Soft Tissue Mobilization Kinesiotaping Other (see comments) Skilled OT eval and treatment Electronically Signed By: ALEX Thurston/Gene, CLT Reviewed/agree with student documentation: Therapist: Please sign and return to therapist, Thank you for your referral.
--- NOTE | 2024-09-14 10:24 | MHC.OT.DC ---
[address] [phone] F: [phone] Occupational Therapy Discharge Note Patient Name: Abi Mcgarry Provider: Marquise Zarate Diagnosis: (L) wrist pain Date of Surgery: Date of Evaluation: 08/26/24 Date of Discharge: Treatments to Date: 4 Cancellations to Date: No Shows to Date: Discharge Status: Recommend MD Follow-up Discharge Summary: Patient is d/c from skilled OT as she will be seeing Orthopedics for further diagnosis evaluation as her symptoms continues to persist. Should patient require therapy she will contact [facility] therapy. Electronically Signed By: ALEX Thurston/Gene, [place] Reviewed/agree with student documentation: Therapist: Please Sign and return to therapist, thank you for your referral.
== END 2024-09-14 10:25 | disposition home or self-care (01) ==
LOC: HO.OT 09:56
PROVIDERS: PCP Family Medicine; Visit Provider Family Medicine
DX: M25.539 Pain in unspecified wrist (principal)
CPT/HCPCS: 97033; 97110; 97140; 97165

== ENCOUNTER 2024-09-21 13:46 | Outpatient (AMB) | payer OTHER, SELFPAY ==
[2024-09-21 14:34] VITALS: BMI 34.6
--- NOTE | 2024-09-21 14:34 | MHC.OFFVIS ---
Vital Signs 09/21/24 14:34 Height 5 ft 7 in Weight 221 lb BMI 34.6 Intake Visit Reasons: OV-LT wrist and base thumb pain f/u Intake Note: Abi 43 yr old presents today for her follow up visit for her Left de Quervain tenosynovitis s/p injection 11/06/[address] Lopez. States injection helped and would like to repeat. Allergies cefaclor [From CECLOR] Allergy (Intermediate, Verified 09/21/24 14:39) RASH, hives Sulfa (Sulfonamide Antibiotics) [SULFA (SULFONAMIDE ANTIBIOTICS)] Allergy (Intermediate, Verified 09/21/24 14:39) RASH, hives aspartame Adverse Reaction (Severe, Verified 09/21/24 14:39) Blister lactose [LACTOSE] Adverse Reaction (Unknown, Verified 09/21/24 14:39) DIARRHEA lanolin Allergy (Unknown, Uncoded 09/21/24 14:39) rash HPI HPI OV-LT wrist and base thumb pain f/u: Details: Abi is a 43 year old right hand dominant Diabetic woman who presents with complaints of left thumb & wrist pain. She complains of pain at the base of her left thumb, which radiates somewhat into her wrist, worse with pinching, gripping, or heavy lifting activities. She was sent for OT hand therapy prior to this appointment, which she feels made her pain worse with stretching activities. She has a Hx of left De Quervains, and received an injection on 11/06/22, with good relief. 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 She is a Diabetic, and says this is well-controlled. [facility] Medical History Pre-diabetes Surgical History No pertinent past surgical history Family History Mother No problems noted. Father No problems noted. 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 Current occupational exposures/hazards: No Cognitive needs: No Hearing needs: No Vision needs: No Review of Systems Const All systems reviewed & are unremarkable except as noted in HPI and below Physical Exam Vital Signs: BMI result Body Mass Index 34.6 Const General: cooperative, healthy appearing and no acute distress Orientation/consciousness: patient oriented x3 HEENT Head: Yes normocephalic and Yes atraumatic Eyes EOM: EOMs intact bilaterally Resp Effort & Inspection: normal respiratory effort and able to speak in complete sentences Cardio Jugular venous distension: no JVD Skin General skin exam: turgor normal Rashes: no rashes Neuro General: patient oriented x3 Extrem Other: Evaluation of Left Upper Extremity: The patient is alert, oriented, and in no acute distress Neuro: Median, Ulnar, Radial nerves motor and sensory intact and sensation is normal to the tips of all digits Vascular: Cap refill brisk ROM: She can make a fist and extend all her digits No locking or catching Skin: No lacerations or abrasions. General: No Ecchymosis. No Erythema or evidence of infection. No tenderness over the 1st dorsal compartment Negative Umair test on the left and right No tenderness over the a1 dustin No tenderness over the MCP joint Tender over the basal joint Mild tenderness over the thenar mass Psych Appearance: grossly normal Affect: normal affect Attitude: cooperative Office Procedures AMB Fracture Care Details: No fracture, injection Fracture Billing Code: Fracture Billing Code Assessment & Plan Assessment & Plan (1) De Quervain's tenosynovitis, left: Code(s): M65.4 - Radial styloid tenosynovitis [de Quervain] Category: Medical Plan Assessment and plan: 1. Left basal joint arthritis/arthrosis I educated her about this condition I discussed operative and non-operative treatment options The patient would like to proceed with an injection I discussed activity modification, they should limit or avoid any heavy or repetitive pinching or gripping activities She was fitted for a comfort cool brace to wear with daily activity Injection #1: The risks and benefits of a steroid injection including but not limited to risk of damage to blood vessels, nerve, tendon, infection, skin bleaching, persistent or worsening pain, and failure to improve symptoms were discussed with the patient and they wish to proceed with the steroid injection. Once consent was obtained the skin over the dorsum of the Left basal joint was sterilely prepped. The joint was then injected with a combination of 1 mL of dexamethasone (4mg/ml) and 1% plain Lidocaine. The patient appears to have tolerated the procedure well and with no complications. She had good early relief before leaving clinic today. She knows that they may not have another steroid injection into this joint for least 4 months. If she continues to complain of tenderness about the basal joint I would get radiographs attention base of the left thumb. 2. Left de Quervain tenosynovitis, S/P injection Date of injection: 11/06/22 Negative Umair test today Resolved Scribed for Nguyen Lopez MD by Guy Fletcher, neuropsychology medical consultant, on 09/21/24 at 2:40 PM, EST. Coding Level of Care Code Est Pt Level 3 (96649) Diagnoses De Quervain's tenosynovitis, left M65.4 CPT Codes Fracture Care - Fracture Billing Code: Fracture Billing Code ([id number])
--- OUTSIDE RECORDS SUMMARY | 2024-09-21 16:25 | XMS_ITS | Data Portability ---
Author Organization [facility], [facility] Address [address] [place] [address] Care Team Providers Care Aviation Survival Technician Name Role Phone SHEREEN MCCULLOUGH Primary Care Provider Assessment No assessment recorded. Plan of Treatment Reminders Order Date Submit Date Provider Last Modified By Organization Details Last Modified Time Details Appointments None recorded. Lab SARS CoV 2 (COVID-19) Ag, QL, IA, upper respiratory specimen 2022 023 [email or web address] [facility], [address] [place], [address], 3 12:34:04 Referral None recorded. Procedures None recorded. Surgeries None recorded. Imaging XR, chest, 2 view - Persistent cough for 2 weeks . exp wheezing on exam 2022 023 [email or web address] [facility], [address] [place] [address], [place], [address], 3 13:23:44 Medication Orders doxycycline hyclate 100 mg capsule 2022 023 [facility] #1291, [address] [place], [address], 3 13:22:42 levofloxaci n 750 mg tablet 2022 023 [facility] #1291, [address] [place], [address], 3 13:22:42 benzonatate 200 mg capsule 2022 023 [facility] #1291, [address] [place], [address], 3 12:34:04 albuterol sulfate HFA 90 mcg/actuati on aerosol inhaler [email or web address]/[facility]acy #1291, [address] [place], [address], 16:23:44 prednisone 20 mg tablet 2022 023 [facility] #1291, [address] [place], [address], 13:02:15 Patient TargetsNo targets recorded. Patient Instructions Encounter Date Encounter Id Patient Instructions Last Modified By Organization Details Last Modified Time 02/24/2023 [id number] cough: care instructions [email or web address] Not available 02/24/2023 12:34:01 Reason for Referral None Reported. Results Created Date Observation Date Name Description Value Unit Range Abnormal Flag Note LastModifiedBy Organization Detail LastModifiedTime 02/25/2002/24/2023 SARS CoV 2 (COVI D-19) Ag, QL, IA, upper respi rator y speci men Unknown Analyte negati ve Not Available [address] [place], [address], 02/24/2023 12:09:14 02/25/20 23 02/24/2023 XR, chest , 2 view No observ ation record ed. [email or web address] [facility] [address] [facility], [place], [address], 02/24/2023 15:05:07 Result Notes None recorded. Problems Name Problem SNOMED Code Status Onset Date Resolution Date Notes Provider Name and Address Organization Details Recorded Time Hypertensive disorder 95832140 Active 2022 GERTRUDIS DRINKCARLO null, PA - [facility] 12:04:57 Seasonal allergic rhinitis 679445583 Active 2022 GERTRUDIS DRINKWINE null, [place] - [facility] 3 12:05:06 Problem Notes None recorded. Procedures Surgical History None recorded. Imaging Results Imaging Date Name Status LastModified by [facility] Details LastModified Time 02/24/2023 XR, chest, 2 view completed [email or web address] [facility] [address] [place], [address], 02/24/2023 15:05:07 Procedure Notes None recorded. Medical Equipment None Reported. Allergies Allergen ID Allergen Name Allergen Category Reaction Reaction Severity Criticality Documentation Date Start Date Code Code System Note Provider Name and Address Organization Details Recorded Time 344918 Substance with sulfonami de structure and antibacte rial mechanism of action (substanc e) medicatio n hives Not available Not available 02/24/2023 84127 8003 SNOMED GERTRUDIS DRINKWINE null, PA - [facility] 3 12:02:59 645612 Ceclor medicatio n hives Not available Not available 02/24/2023 84971 5 RxNorm GERTRUDIS DRINKWINE null, PA - [facility] 3 12:03:13 440430 aspartame food,medi cation rash Not available Not available 02/24/2023 10468 24 RxNorm GERTRUDIS DRINKWINE null, PA - [facility] 3 12:03:30 907469 lanolin environme nt,medica tion rash Not available [...] Updated DateTime 3 170.18 cm 31.3 kg/m2 59274.4 7 g 0 97.7 [degF] 18 /min [...] SNOMED-CT Code Diagnosis ICD10 Code Diagnosis Note [id number] [address] [facility] [address] [place] [address] 02/08/2022 11:50:40 02/08/2022 13:30:14 [id number] [address] [facility] [place] [address] 04/25/2022 08:28:09 04/25/2022 10:47:42 [id number] [facility] [facility] [address] [place] [address] 03/31/2022 16:54:40 03/31/2022 17:43:41 [id number] Dominique Tavares NP [address] [facility] [address] [facility] [place] [address] 02/24/2023 11:35:30 02/24/2023 13:23:44 Respiratory tract congestion and cough 386483510 R05.9 Based on your Presentati on, Exam, [...] . Severe Headache Thank you for using [employer] today, please feel free to contact our office if you have any questions or concerns. Community acquired pneumonia [id number] J18.9 Health Concerns Section Related Observation LastModified by Organization Detai ls LastModified Time None Recorded Concern Status LastModified by Organization Details LastModified Time None Recorded Advance Directives Directive None Recorded Payers Encounter Date Sequence Insurance Name Policy Number Policy Grubbs Covered Member ID Grubbs Member ID Guarantor Name 02/08/2022 1 [facility] (MEDICAID HMO) [id number] September M Zeferino [id number] September Zeferino 03/31/2022 1 [facility] (MEDICAID HMO) [id number] September M Zeferino [id number] September Zeferino 02/24/2023 1 [facility] (MEDICAID HMO) [id number] September M Zeferino [id number] September [place] Notes Date Note Type Note Provider Name [...] Tavares NP [address] [place], [address], [place] - [facility] 02/24/2023 16:32:04 OBGyn Episode No OBEpisode recorded.
== END 2024-09-21 14:58 | disposition home or self-care (01) ==
PROVIDERS: PCP Family Medicine; Visit Provider Orthopaedic Surgery
DX: M65.4 Radial styloid tenosynovitis [de Quervain] (principal)
CPT/HCPCS: 20600; 99213

== ENCOUNTER → 2024-09-21 13:46 | Outpatient (BNVA) | payer OTHER, SELFPAY | PROVIDERS: PCP Family Medicine; Visit Provider Orthopaedic Surgery | DX: M65.4 Radial styloid tenosynovitis [de Quervain] (principal) | CPT/HCPCS: 20600; 99212; J1100; J2003 ==

== ENCOUNTER 2024-10-07 08:21 | Outpatient (AMB) | payer OTHER, SELFPAY ==
--- NOTE | 2024-10-07 08:30 | MHC.OFFWIV ---
Intake Vital Signs 10/07/24 08:37 Weight 220 lb BP 122/80 Blood Pressure Location Rt brachial Position Sitting Pulse 84 Pulse Source Pulse Oximeter Pulse Oximetry (%) 98 Oxygen Delivery Method Room Air Intake Visit Reasons: EP-lt foot pain Intake Note: Patient here for left heel pain that started about 2 this morning. Patient Tobacco Use Status: Current everyday Tobacco user Allergies cefaclor [From CECLOR] Allergy (Intermediate, Verified 10/07/24 08:38) RASH, hives Sulfa (Sulfonamide Antibiotics) [SULFA (SULFONAMIDE ANTIBIOTICS)] Allergy (Intermediate, Verified 10/07/24 08:38) RASH, hives aspartame Adverse Reaction (Severe, Verified 10/07/24 08:38) Blister lactose [LACTOSE] Adverse Reaction (Unknown, Verified 10/07/24 08:38) DIARRHEA lanolin Allergy (Unknown, Uncoded 10/07/24 08:38) rash Do you need a note to return to daycare/school/sports/work: No HPI HPI Comments History of Present Illness Details History of Present Illness - The patient is a 43-year-old female presenting with left foot pain. - She reports acute, severe pain in the heel that radiates to the bottom/side of the foot and into the toes, noticed suddenly upon waking today. - The pain inhibits her ability to bear weight on the affected foot, and she is currently ambulating with difficulty. - She has a history of plantar fasciitis, previously treated by a recovery manager with steroid injections. - There was no specific event or trauma that the patient can recall linked to the onset of the pain. - The patient has been managing foot pain intermittently with stretches, anti-inflammatory therapies, and by using orthotic shoe inserts. Physical Exam General: Cooperative, healthy appearing, comfortable, no acute distress and well developed Orientation: Patient oriented x3 Limitations: Cannot put weight on the heel, hobbling Head: Normal to inspection Ears: Hearing grossly normal bilaterally Nose: Normal External nose present Face and sinus: Normal facial exam Eyes: Appearance normal, both eyes and all related structures Neck: Normal visual inspection and Yes full ROM Respiratory: Normal respiratory effort and able to speak in complete sentences. Skin: No rashes or lesions noted Neuro: Patient oriented x3 Extremities: TTP of heel and entire plantar aspect of left foot. Toes with full ROM, NVI, no rashes or discoloration noted. right ankle with full ROM. [facility] Medical History Pre-diabetes Surgical History No pertinent past surgical history Family History Mother No problems noted. Father No problems noted. 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 Meloxicam was prescribed for inflammation, with clear instructions on dosage. She was advised to use orthotics, rest, and apply ice to manage symptoms. Should the condition persist without improvement, she should follow up with her PCP for possible podiatry referral. Work note accommodations were provided to ensure adequate rest. Patient was informed and verbally consented to the use of an ambient scribe for clinic note documentation during this visit. Medications: New meloxicam 15 mg PO DAILY 15 tabs 0RF Coding Level of Care Code Est Pt Level 3 (23046) Diagnoses Plantar fasciitis of left foot M72.2
[2024-10-07 08:37] VITALS: BP 122/80; PULSE 84; O2SAT 98
--- OUTSIDE RECORDS SUMMARY | 2024-10-07 08:38 | XMS_ITS | Data Portability ---
Author Organization [facility], [address] Address [address] [place] [address] Care Team Providers Care Gym Instructor Name Role Phone SHEREEN MCCULLOUGH Primary Care Provider Assessment No assessment recorded. Plan of Treatment Reminders Order Date Submit Date Provider Last Modified By Organization Details Last Modified Time Details Appointments None recorded. Lab SARS CoV 2 (COVID-19) Ag, QL, IA, upper respiratory specimen 2022 023 [email or web address] [facility] [address], [address] [place], [address], 3 12:34:04 Referral None recorded. Procedures None recorded. Surgeries None recorded. Imaging XR, chest, 2 view - Persistent cough for 2 weeks . exp wheezing on exam 2022 023 [email or web address] [facility], [address] [place] [address]., [place], [address], 3 13:23:44 Medication Orders doxycycline hyclate 100 mg capsule 2022 023 [facility], [address] [place], [address], 3 13:22:42 levofloxaci n 750 mg tablet 2022 023 [facility], [address] [place], [address], 3 13:22:42 benzonatate 200 mg capsule 2022 023 [facility], [address] [place], [address], 3 12:34:04 albuterol sulfate HFA 90 mcg/actuati on aerosol inhaler [email or web address], [address] [place], [address], 16:23:44 prednisone 20 mg tablet 2022 023 [facility], [address] [place], [address], 13:02:15 Patient TargetsNo targets recorded. Patient Instructions Encounter Date Encounter Id Patient Instructions Last Modified By Organization Details Last Modified Time 02/24/2023 [id number] cough: care instructions [email or web address] Not available 02/24/2023 12:34:01 Reason for Referral None Reported. Results Created Date Observation Date Name Description Value Unit Range Abnormal Flag Note LastModifiedBy Organization Detail LastModifiedTime 02/25/2002/24/2023 SARS CoV 2 (COVI D-19) Ag, QL, IA, upper respi rator y speci men Unknown Analyte negati ve Not Available [address] [place], [address], 02/24/2023 12:09:14 02/25/20 23 02/24/2023 XR, chest , 2 view No observ ation record ed. [email or web address] [facility] [address] [facility], [place], [address], 02/24/2023 15:05:07 Result Notes None recorded. Problems Name Problem SNOMED Code Status Onset Date Resolution Date Notes Provider Name and Address Organization Details Recorded Time Hypertensive disorder 25487481 Active 2022 GERTRUDIS DRINKCARLO null, [place] - [facility] 12:04:57 Seasonal allergic rhinitis 619371709 Active 2022 GERTRUDIS DRINKWINE null, [place] - [facility] 3 12:05:06 Problem Notes None recorded. Procedures Surgical History None recorded. Imaging Results Imaging Date Name Status LastModified by [facility] Details LastModified Time 02/24/2023 XR, chest, 2 view completed [email or web address] [facility] [address] [place], [address], 02/24/2023 15:05:07 Procedure Notes None recorded. Medical Equipment None Reported. Allergies Allergen ID Allergen Name Allergen Category Reaction Reaction Severity Criticality Documentation Date Start Date Code Code System Note Provider Name and Address Organization Details Recorded Time 072932 Substance with sulfonami de structure and antibacte rial mechanism of action (substanc e) medicatio n hives Not available Not available 02/24/2023 69702 8003 SNOMED GERTRUDIS DRINKWINE null, [place] - [facility] 3 12:02:59 843525 Ceclor medicatio n hives Not available Not available 02/24/2023 03877 5 RxNorm GERTRUDIS DRINKWINE null, [place] - [facility] 3 12:03:13 945821 aspartame food,medi cation rash Not available Not available 02/24/2023 26935 24 RxNorm GERTRUDIS DRINKWINE null, [place] - [facility] 3 12:03:30 336979 lanolin environme nt,medica tion rash Not available [...] Updated DateTime 3 170.18 cm 31.3 kg/m2 36325.4 7 g 0 97.7 [degF] 18 /min [...] SNOMED-CT Code Diagnosis ICD10 Code Diagnosis Note [id number] [address] [facility] [address] [place] [address] 02/08/2022 11:50:40 02/08/2022 13:30:14 [id number] [address] [place] [facility] [place] [address] 04/25/2022 08:28:09 04/25/2022 10:47:42 [id number] [address] [facility] [address] [place] [address] 03/31/2022 16:54:40 03/31/2022 17:43:41 [id number] Dominique Tavares NP [address] [facility] [address] [facility] [place] [address] 02/24/2023 11:35:30 02/24/2023 13:23:44 Respiratory tract congestion and cough 564612240 R05.9 Based on your Presentati on, Exam, [...] . Severe Headache Thank you for using [facility] today, please feel free to contact our office if you have any questions or concerns. Community acquired pneumonia 470619764 J18.9 Health Concerns Section Related Observation LastModified by Organization Detai ls LastModified Time None Recorded Concern Status LastModified by Organization Details LastModified Time None Recorded Advance Directives Directive None Recorded Payers Encounter Date Sequence Insurance Name Policy Number Policy Grubbs Covered Member ID Grubbs Member ID Guarantor Name 02/08/[address] [facility] (MEDICAID HMO) [id number] September M Zeferino [id number] September Filer 03/31/[address] [facility] (MEDICAID HMO) [id number] September M Zeferino [id number] September Filer 02/24/[address] [facility] (MEDICAID HMO) [id number] September M Zeferino [id number] September Filer Notes Date Note Type Note Provider Name [...] Tavares NP [address] [place], [address], [place] - [facility] 02/24/2023 16:32:04 OBGyn Episode No OBEpisode recorded.
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
== END 2024-10-07 08:50 | disposition home or self-care (01) ==
PROVIDERS: PCP Family Medicine; Visit Provider Physician Assistant
DX: M72.2 Plantar fascial fibromatosis (principal)

== ENCOUNTER → 2024-10-07 08:21 | Outpatient (BNVA) | payer OTHER, SELFPAY | PROVIDERS: PCP Family Medicine | DX: M72.2 Plantar fascial fibromatosis (principal) | CPT/HCPCS: 99212 ==

== ENCOUNTER 2024-11-08 10:27 | Outpatient (AMB) | payer OTHER, SELFPAY ==
--- NOTE | 2024-11-08 10:57 | A.OFFPC_ITS ---
Vital Signs 11/08/24 11:09 Height 5 ft 7 in Weight 233 lb 2 oz BMI 36.5 BP 116/60 Blood Pressure Location Lt brachial Position Sitting Respiration 16 Pulse 66 Pulse Source Pulse Oximeter Temp 98.3 F Temp Source Oral Pulse Oximetry (%) 97 Oxygen Delivery Method Room Air Intake Visit Reasons: f/u hypertension, pre-diabetes Intake Note: patient is schedule to follow up for htn and pre-dm patient also states she has been experiencing some discomfort in her left hand Intensive Care Specialist Required: No Allergies cefaclor [From CECLOR] Allergy (Intermediate, Verified 11/08/24 11:07) RASH, hives Sulfa (Sulfonamide Antibiotics) [SULFA (SULFONAMIDE ANTIBIOTICS)] Allergy (Intermediate, Verified 11/08/24 11:07) RASH, hives aspartame Adverse Reaction (Severe, Verified 11/08/24 11:07) Blister lactose [LACTOSE] Adverse Reaction (Unknown, Verified 11/08/24 11:07) DIARRHEA lanolin Allergy (Unknown, Uncoded 10/07/24 08:38) rash Medication List - Last Reconciled 11/08/24 by Marquise Zarate MD albuterol sulfate 90 mcg/actuation 2 puffs inhalation Q6H PRN fluticasone propionate 50 mcg/actuation 1 spray intranasal Q12H melatonin 3 mg PO BEDTIME PRN metoprolol ta-hydrochlorothiaz 50-25 mg 1 tab PO DAILY norgestimate-ethinyl estradiol 0.18/0.215/0.25 mg-0.035mg (28) (Tri-Linyah) 1 tab PO DAILY valacyclovir 500 mg PO Q12H 14 days Tobacco use date assessed: 04/09/24 Dental Screening Dental Screen Date: 04/09/24 HPI f/u hypertension, pre-diabetes HPI Details 44 y/o female presents to f/u hypertensi on, pre-diabetes. BP today 116/60, 66p. She is on metoprolol ta-hydrochlorothiaz 50-25mg daily. Last A1c 08/10/24 5.8%. A1c today 11/08/24 is 5.8%. Has complaints of L hand pain. 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 Had been seeing hand surgery. She notes she was given a cortisone shot which did not work. She has an appt. scheduled with them. She has trialed meloxicam but notes this did not do much for her wrist. [facility] Medical History Pre-diabetes Surgical History No pertinent past surgical history Family History Mother No problems noted. Father No problems noted. Social History Housing: House Alcohol intake: never Patient Tobacco Use Status: Current everyday Tobacco user Cigarette Packs Per Day: 0.5 Cigarettes Per Day: 10 Years Smoked: 16 e-Cigarette/Vaping Use: Never Used Second Hand Smoke Exposure: No service: No Current occupational status: employed Current occupation: [employer] Current occupational exposures/hazards: No Cognitive needs: No Hearing needs: No Vision needs: No Questionnaire Thrive Questionnaire Date Thrive assessed: 04/09/24 I am a: Patient What is your living situation today?: I have a steady place to live Within the past 12 months, did the food you bought not last and you didn't have the money to get more?: Never true Within the past 12 months, did you worry whether your food would run out before you got money to buy more?: Never true Do you have trouble paying for medicines?: No Do you have trouble getting transportation to medical appointments?: No Do you have trouble paying your heating and electricity bill?: No Do you have trouble taking care of your child, family member or friend?: No Do you have trouble with day-to-day activities such as bathing, preparing meals, shopping, managing finances, etc.?: No Are you currently unemployed and looking for a job?: No Are you interested in more education?: No Please select the resources that you would like help with: None Currently or been in a relationship where the following occur: I choose not to answer THRIVE Score: 0 CONOR-7 AMB Questionnaire CONOR-7 Date CONOR - 7 assessed: 04/09/24 Source: Developed by Drs. Aleksandr Clemens, Almaz Levy, Otoniel Renae and colleagues, with an educational mil from [employer]. Review of Systems Const Denies chills, Denies fatigue, Denies fever(s), Denies headache(s) and Denies weakness ENT Denies dizziness and Denies headache(s) Card Denies dyspnea Resp Denies cough, Denies dyspnea, Denies wheezing and Denies other (shortness of breath) Musc Denies numbness and Denies tingling Neuro Denies dizziness, Denies headache(s), Denies numbness, Denies tingling and Denies weakness Psych Denies anxiety and Denies depression Endo Denies fatigue Aller/Immun Denies wheezing Physical exam (Primary Care) Vital Signs: Last Vital Signs Temp 98.3 F 11/08/24 11:09 Pulse 66 11/08/24 11:09 Resp 16 11/08/24 11:09 BP 116/60 11/08/24 11:09 Pulse Ox 97 11/08/24 11:09 Oxygen Delivery Method Room Air 11/08/24 11:09 BMI result Body Mass Index 36.5 Tobacco/Smoking Status: Tobacco use Status Tobacco use date assessed 04/09/24 11/08/24 10:58 Patient Tobacco Use Status Current everyday Tobacco 11/08/24 10:58 e-Cigarette/Vaping Use Never Used 11/08/24 10:58 Thrive Assessment: Date of Thrive Assessment Date Thrive assessed 04/09/24 11/08/24 10:58 Currently or been in a relationship where the following occur: I choose not to answer Const General: well developed; No acute distress Nutritional Appearance: well nourished and obese Orientation/consciousness: patient oriented x3 [facility] Head: Yes normocephalic and Yes atraumatic Eyes General: appearance normal, both eyes and all related structures Pupils: Equal, round and reactive pupils present EOM: EOMs intact bilaterally Resp Effort & Inspection: normal respiratory effort Neuro General: patient oriented x3 and gait normal Cranial nerves: Yes Equal, round and reactive pupils present Psych Affect: normal affect Coding Level of Care Code Est Pt Level 4 (83146) Diagnoses Essential hypertension I10 Pre-diabetes R73.03 Left hand pain M79.642 Assessment & Plan Assessment & Plan (1) Essential hypertension: Code(s): I10 - Essential (primary) hypertension Category: Medical Plan: Blood?pressure?is?controlled.??Goal?is?less?than?140/90 Continue?current?medication (2) Pre-diabetes: Code(s): R73.03 - Prediabetes Category: Medical Plan: A1c?remains?at?5.8%.??Pre?diabetes?range Keep?her?he?at?a?diet?lower?in?sugars?and?starches (3) Left hand pain: Code(s): M79.642 - Pain in left hand Category: Medical Plan: Worsening?left?hand?and?thumb?pain. Now severe. Now?followed?by?hand?surgery Has?tried?injection?therapy?which?has?not?helped?yet Has?tried?physical?therapy?in?the?past.??She?is?using?a?thumb?splint/wrist?brace She?has?a?follow-up?appointment?with?the?hand?surgeon?next?Friday. 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 Orders: Orders XR hand LT min 3V Today M79.642 - Pain in left hand Medications: New tramadol 50 mg PO BID 5 days PRN 10 tabs 0RF pain Changed From meloxicam 15 mg PO DAILY 15 tabs 0RF To meloxicam 15 mg PO DAILY 15 days 15 tabs 0RF Refilled metoprolol ta-hydrochlorothiaz 50-25 mg 1 tab PO DAILY 90 tabs 3RF
--- OUTSIDE RECORDS SUMMARY | 2024-11-08 11:05 | XMS_ITS | Data Portability ---
Author Organization [place] [facility], Allergy Address [address] [place] [id number] Assessment Encounter Date Assessment Date Assessment LastModified [...] dated 09/04/24. [email or web address] Not available 09/14/2024 17:07:57 11/02/2024 11/02/2024 44-year-old female with allergic rhinitis presents for reevaluation of maxillary sinusitis. 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 Today she endorses mild frontal and maxillary pressure. We discussed this is not likely caused by sinus inflammation. Anterior rhinoscopy is benign without purulence or mucosal edema. CT sinus in the office today demonstrates mild mucosal thickening in the bilateral maxillary sinuses without evidence of polyps. Frontal and ethmoid sinuses are clear. There is a stefania bullosa in the right middle turbinate. Allergy testing 2024 that demonstrated moderate sensitivity to dust mites, molds, weeds, and cats. Patient is not interested in immunotherapy due to cost. She will continue daily Luz Maria and trial intranasal triamcinolone acetonide for allergy management. Patient will follow up as needed. [email or web address] Not available 11/02/2024 14:14:02 Plan of Treatment Reminders Order Date Submit Date Provider Last Modified By Organization Details Last Modified Time Details Appointments None recorded . Lab None recorded . Referral None recorded . Procedures allergy testing, skin prick (PROC) 2024 025 [email or web address] Not available 16:19:19 intrader mal allergy skin testing (PROC) 2024 025 [email or web address] Not available 16:19:19 pulmonar y function test procedur e (PROC) 2024 025 [email or web address] Not available 16:19:19 pulse oximetry (PROC) 2024 025 [email or web address] Not available 16:19:19 Surgeries None recorded . Imaging CT, sinuses, w/o contrast 2024 025 [email or web address] [facility] [address], [address], 15:49:58 CT, sinuses, w/o contrast 2024 025 [email or web address] [facility] [address], [address], 15:26:47 Medication Orders triamcin olone acetonid e 55 mcg nasal spray aerosol 2024 025 [facility][id number], [address] [facility], [place], [address], 13:41:01 Patient TargetsNo targets recorded. Patient Instructions Encounter Date Encounter Id Patient Instructions Last Modified By Organization Details Last Modified Time 10/15/2024 [id number] Nursing Documentation for Allergy Testing: Ordering Provider {{Dr. Melvin Chase* Dr. Raz Moody}} Weight:lbs:? ? ?kg: ? ? ? PFT {{Yes* no}} With Bronchodilator {{Yes no*}} Dr. bach needed to proceed with allergy testing? {{Yes No}} {{Dr. Melvin Moody}} ok'd testing {{Yes No Pulmonary Clearance PCP Clearance RAST}}Hi story of Asthma:{{Yes No*}} Asthma Meds: ? ? ?Last used:? ? ? Asthma exacerbated by: ? ? ? Chance that : {{Yes No* Not Sure N/A}} Fear of needles: {{Yes No*}} Regular medications reviewed in Computer: {{Yes No*}} Medication allergies: {{Reviewed* NKDA}} Antihistamine use: {{Yes No*}} Medications used: ? ? ? Food Allergies: ? ? ? n/a Any foods make your mouth feeling itchy: {{Yes No*}} If yes: ? ? ? History of severe reaction where had to go to ER? {{Yes No*}} If yes details: ? ? ? Type of heat in home: {{Baseboard Forced Air* Radiator othe r}} Pets: {{Yes* No}} If yes: ? ? ?1cat and dog Smoker: {{Yes Current Never* For david}} If former smoker-how much ? ? ? / day for how long ? ? ? When quit ? ? ? years ago Smoking now-how much ? ? ? /day for how long ? ? ? Occupation/Social History: ? ? ?works at [employer] Symptoms having: {{Congestion Post Nasal Drip Headache Runn y Nose Cough Other*} } If other: ? ? ?pressure, eyes get itchy and burn Frequency {{Seasonally* Year Round}} Spirometry Contraindications: Heart attack in the last 3 months: {{Yes No*}} Major surgery in last 3 months: {{Yes No*}} Detached retina(serious eye issues) in last 2 months: {{Yes No*}} Hospitilization in last month: {{Yes No*}} Proceed with PFT {{Yes* No}} approval needed: {{Yes No*}} Nursing Notes: Pt tolerated test well {{Yes* No}} Benadryl cream to test sites {{Yes No*}} Patient became syncopal-placed in supine position {{Yes No*}} Large reactions to MQT, reschedule IDT for a different date {{Yes No*}} Other: ? ? ? Written by: {{MARTHA Arambula, Jimmie Johnson*}} [email or web address] Not available 10/15/2024 15:10:15 Reason for Referral None Reported. Results Created Date Observation Date Name Description Value Unit Range Abnormal Flag Note LastModifiedBy Organization Detail LastModifiedTime 09/15/19 CT, sinus es, w/o contr ast No observ ation record ed. [email or web address] [facility] [address], [address], 09/14/2024 14:54:16 09/16/1909/04/2024 CT, maxil lofac ial, w/ contr ast No observ ation record ed. [email or web address] Not Available 08/22 14:58:50 09/16/1909/04/2024 CT, tempo ral bone, w/ contr ast No observ ation record ed. [email or web address] Not Available 08/22 15:00:13 10/16/19 jennifer metry testi ng* No observ ation record ed. [email or web address] Not Available 09/22 15:07:50 11/03/19 CT, sinus es, w/o contr ast No observ ation record ed. [email or web address] [facility] [address], [address], 11/02/2024 14:18:22 Result Notes None recorded. Problems Name Problem SNOMED Code Status Onset Date Resolution Date Notes Provider Name and Address Organization Details Recorded Time Nasal congestion 98144183 Active Bette MARION PA-C [address] [place] [address], [facility] [place], [address], [place] - [facility] 14:54:04 Allergic rhinitis 00582097 Active 025 ATTILA MARION PA-C [address] [facility], [facility] [place], [address], [place] - [facility] 14:54:19 Anterior rhinorrhea 124526103 Active 025 NICKOLAS BRODYC [address] [facility], [place] [place], [address], [place] [facility] 17:08:07 Acute maxillary sinusitis 58179700 Active DONNY ROJAS PA-C [address] [facility], [facility] [place], [address], [place] [facility] 14:14:47 Problem Notes None recorded. Procedures Surgical History Date Name Laterality Status Provider Name and Address Organization Details Recorded Time CT sinus - Xoran completed DONNY ROJAS PA-C [address] [place] [address], [address], [place] - [facility] 11/02/2024 14:15:36 Allergy Testing-Full completed EARLENE FISHMAN [address] [facility],[address], [address], [place] - [facility] 10/15/2024 15:54:39 Nasal Endoscopy completed ATTILA MARION PA-C [address] [facility],[address], [address], [place] - [facility] 09/14/2024 17:04:11 Imaging Results Imaging Date Name Status [facility] Details LastModified Time 09/14/2024 CT, sinuses, w/o contrast completed [email or web address] [facility] [address], [address], 09/14/2024 14:54:16 09/04/2024 CT, maxillofacial, w/ contrast completed Information not available 09/15/2024 14:58:50 09/04/2024 CT, temporal bone, w/ contrast completed Information not available 09/15/2024 15:00:13 10/15/2024 spirometry testing* completed [email or web address] Information not available 10/15/2024 15:07:50 11/02/2024 CT, sinuses, w/o contrast completed [email or web address] [facility] [address], [address], 11/02/2024 14:18:22 Procedure Notes None recorded. Medical Equipment None Reported. Allergies Allergen ID Allergen Name Allergen Category Reaction Reaction Severity Criticality Documentation Date Start Date Code Code System Note Provider Name and Address Organization Details Recorded Time 184895 Substance with sulfonami de structure and antibacte rial mechanism of action (substanc e) medicatio n Not available Not available Not available 09/14/2024 10336 8003 SNOMED Alyssia Motyka gen [place] - [facility] 14:22:11 377974 lanolin environme nt,medica tion Not available Not available Not available 09/14/2024 6227 RxNorm Alyssia Motyka null [place] [facility] 14:22:11 512124 aspartame food,medi cation Not available Not available Not available 09/14/2024 72115 24 RxNorm Alyssia Motyka null [place] [facility] 14:22:11 989085 Ceclor medicatio n Not available Not available Not available 09/14/2024 56036 5 RxNorm Alyssia Motyka null [place] [facility] 14:22:11 Medications Name Sig Start Date Stop Date Status Note LastModified by Organization Details LastModified Time prednisone 10 mg tablet PLEASE SEE ATTACHED FOR DETAILED DIRECTION S 10/15 completed Not Available Not Available Not Available azithromyci n 250 mg tablet TAKE 2 TABLETS BY MOUTH TODAY, THEN TAKE 1 TABLET DAILY FOR 4 DAYS DIRECTED 10/15 completed Not Available Not Available Not Available hydrochloro thiazide 50 mg tablet TAKE 1 TABLET BY MOUTH EVERY DAY FOR 6 DAYS 10/15 completed Not Available Not Available Not Available meloxicam 15 mg tablet TAKE 1 TABLET BY MOUTH EVERY DAY 10/15 completed Not Available Not Available Not Available prednisone 20 mg tablet TAKE 2 TABS ORALLY DAILY 10/15 completed Not Available Not Available Not Available valacyclovi r 500 mg tablet TAKE 1 TABLET BY MOUTH EVERY 12 HOURS FOR 14 DAYS 10/15 completed Not Available Not Available Not Available metoprolol tartrate 50 mg-hydrochl orothiazide 25 mg tablet TAKE 1 TABLET BY MOUTH EVERY DAY active Not Available Not Available No t Available metoclopram beka 5 mg tablet 1 TABLET BY MOUTH 4 TIMES A DAY FOR 3 DAYS NEEDED FOR HEADACHE 10/15 completed Not Available Not Available Not Available triamcinolo ne acetonide 55 mcg nasal spray aerosol [place] 2 sprays every day by intranasa l route as directed for 42 days, for nasal congestio n, environme ntal allergies . 2024 active Not Available Not Available Not Avai lable doxycycline hyclate 100 mg tablet TAKE 1 TABLET BY MOUTH TWICE A DAY FOR 10 DAYS 10/15 completed Not Available Not Available Not Available amoxicillin 875 mg-potassiu m clavulanate 125 mg tablet TAKE 1 TABLET BY MOUTH EVERY 12 HOURS FOR 14 DAYS 10/15 completed Not Available Not Available Not Available Ventolin HFA 90 mcg/actuati on aerosol inhaler INHALE 2 PUFFS EVERY 6 HOURS NEEDED FOR SHORTNESS OF BREATH OR WHEEZING 10/15 completed Not Available Not Available Not Available varenicline tartrate 1 mg tablet TAKE 1 TABLET BY MOUTH TWICE A DAY FOR 84 DAYS 10/15 completed Not Available Not Available Not Available varenicline tartrate 0.5 mg (11)-1 mg (42) tablets in a dose pack TAKE DIRECTED ON PACKAGE LABELING 10/15 completed Not Available Not Available Not Available Athlete's Foot (terbinafin e) 1 % topical cream APPLY TOPICALLY 2 TIMES A DAY FOR 14 DAYS 10/15 completed Not Available Not Available Not Available butalbital- acetaminoph en-caffeine 50 mg-300 mg-40 mg capsule TAKE 1 CAP ORALLY EVERY 6 HOURS NEEDED FOR HEADACHE 10/15 completed Not Available Not Available Not Available Tri-Estaryl la (28) 0.18 mg(7)/0.215 mg(7)/0.25 mg(7)-0.035 mg tablet TAKE 1 TABLET BY MOUTH EVERY DAY active Not Available Not Available No t Available Vitals Date Recorded Body height Body mass index (BMI) Body weight Provider Name and Address Organization Details Last Updated DateTime 09/14/2024 172.72 cm 36.5 kg/m2 773567.17 g Alyssia Munguia [place] [facility] 09/14/2024 14:22:07 Date Recorded Body height Body mass index (BMI) Body weight Oxygen saturation Oxygen saturation in Arterial blood by Pulse oximetry Heart rate Systolic blood pressure Diastolic blood pressure Provider Name and Address Organization Details Last Updated DateTime 172.72 cm 36.5 kg/m2 360148. 17 g 96 % 96 % 51 /min 105 mm[Hg] 70 mm[Hg] MIRIAN JOHNSON, [address], [address], [place] - [facility] 14:47:25 Date Recorded Body height Provider Name an d Address Organization Details Last Updated DateTime 11/02/2024 172.72 cm CLARISSA WALLACEBeronica [place] [facility] 11/02/2024 12:53:21 Social History None recorded. Functional Status None [...] Disorder N Anesthesia Complications N Heart Attack (MS) N Other Skin Condition Y Diabetes N [...] SNOMED-CT Code Diagnosis ICD10 Code Diagnosis Note [id number] ATTILA MARION PA-C [facility] [address] [address] 09/14/2024 14:16:01 09/14/2024 14:59:11 Nasal congestion 78594937 R09.81 Anterior rhinorrhea 2772 92395 J34.89 [id number] MIRIAN JOHNSON [facility] [address] [facility] [address] [address] 10/15/2024 14:17:28 10/15/2024 15:55:35 Allergic rhinitis 18968021 J30.9 [id number] YENNI CHASE MD [facility] [address] [address] 11/02/2024 12:50:56 11/02/2024 15:49:58 Allergic rhinitis 74337596 J30.9 Nasal congestion 7755464 0 R09.81 Acute maxi llary sinusitis 28134219 J01.00 Health Concerns Section Related Observation LastModified by Organization Detai ls LastModified Time None Recorded Concern Status LastModified by Organization Details LastModified Time None Recorded Advance Directives Directive None Recorded Payers Insurance Date Sequence Insurance Name Policy Number Policy Grubbs Covered Member ID Grubbs Member ID Guarantor Name 09/17/2024 1 [facility] NET PLAN (MEDICAID HMO) [id number] September Zeferino [id number] September Zeferino 11/02/2024 1 [facility] (HMO) [id number] September M Zeferino [id number] September M Zeferino Notes Date Note Type Note Provider [...] never requires steroid therapy. YENNI CHASE MD [address] [place] [address], [address], [facility] - [facility] 09/14/2024 17:19:43 11/02/2024 text/html 44-year-old kevin robb presents for reevaluation of sinusitis. She obtained allergy testing on 2024 that demonstrated moderate sensitivity to dust mites, molds, weeds, and cats. She does live with a cat. Fortunately she reports significant improvement in sinus symptoms since starting Augmentin and prednisone, as well as discontinuing long-term decongestant use. She endorses residual constant forehead and cheek pressure. She started daily Luz Maria 2 weeks ago. Patient is not interested in immunotherapy due to cost. YENNI CHASE MD [address] [place] [address], [address], [facility] - [facility] 11/02/2024 14:20:06 OBGyn Episode No OBEpisode recorded.
--- OUTSIDE RECORDS SUMMARY | 2024-11-08 11:05 | XMS_ITS | Data Portability ---
Author Organization [facility], [address] Address [address] [place] [address] Care Team Providers Care Flat Knitter Name Role Phone SHEREEN MCCULLOUGH Primary Care Provider Assessment No assessment recorded. Plan of Treatment Reminders Order Date Submit Date Provider Last Modified By Organization Details Last Modified Time Details Appointments None recorded. Lab SARS CoV 2 (COVID-19) Ag, QL, IA, upper respiratory specimen 2022 023 [email or web address] [facility], [address] [place], [address], 3 12:34:04 Referral None recorded. Procedures None recorded. Surgeries None recorded. Imaging XR, chest, 2 view - Persistent cough for 2 weeks . exp wheezing on exam 2022 023 [email or web address] [facility], [address] [place] [address]., [place], [address], 3 13:23:44 Medication Orders doxycycline hyclate 100 mg capsule 2022 023 [facility]acy #1291, [address] [place], [address], 3 13:22:42 levofloxaci n 750 mg tablet 2022 023 [facility] #1291, [address] [place], [address], 3 13:22:42 benzonatate 200 mg capsule 2022 023 [facility] #1291, [address] [place], [address], 3 12:34:04 albuterol sulfate HFA 90 mcg/actuati on aerosol inhaler [email or web address]/[facility]armacy #1291, [address] [place], [address], 16:23:44 prednisone 20 mg tablet 2022 023 [facility] #1291, [address] [place], [address], 13:02:15 Patient TargetsNo targets recorded. Patient Instructions Encounter Date Encounter Id Patient Instructions Last Modified By Organization Details Last Modified Time 02/24/2023 [id number] cough: care instructions [email or web address] Not available 02/24/2023 12:34:01 Reason for Referral None Reported. Results Created Date Observation Date Name Description Value Unit Range Abnormal Flag Note LastModifiedBy Organization Detail LastModifiedTime 02/25/2002/24/2023 SARS CoV 2 (COVI D-19) Ag, QL, IA, upper respi rator y speci men Unknown Analyte negati ve Not Available [address] [place], [address], 02/24/2023 12:09:14 02/25/20 23 02/24/2023 XR, chest , 2 view No observ ation record ed. [email or web address] [facility] [address] [facility], [place], [address], 02/24/2023 15:05:07 Result Notes None recorded. Problems Name Problem SNOMED Code Status Onset Date Resolution Date Notes Provider Name and Address Organization Details Recorded Time Hypertensive disorder 06017210 Active 2022 GERTRUDIS DRINKCARLO null, [place] - [facility] 12:04:57 Seasonal allergic rhinitis 293157398 Active 2022 GERTRUDIS DRINKWINE null, PA - [facility] 3 12:05:06 Problem Notes None recorded. Procedures Surgical History None recorded. Imaging Results Imaging Date Name Status LastModified by [facility] Details LastModified Time 02/24/2023 XR, chest, 2 view completed [email or web address] [facility] [address] [place], [address], 02/24/2023 15:05:07 Procedure Notes None recorded. Medical Equipment None Reported. Allergies Allergen ID Allergen Name Allergen Category Reaction Reaction Severity Criticality Documentation Date Start Date Code Code System Note Provider Name and Address Organization Details Recorded Time 815653 Substance with sulfonami de structure and antibacte rial mechanism of action (substanc e) medicatio n hives Not available Not available 02/24/2023 00111 8003 SNOMED GERTRUDIS DRINKWINE null, PA - [facility] 3 12:02:59 220442 Ceclor medicatio n hives Not available Not available 02/24/2023 93561 5 RxNorm GERTRUDIS DRINKWINE null, PA - [facility] 3 12:03:13 770742 aspartame food,medi cation rash Not available Not available 02/24/2023 02595 24 RxNorm GERTRUDIS DRINKWINE null, PA - [facility] 3 12:03:30 008720 lanolin environme nt,medica tion rash Not available [...] height Body mass index (BMI) Body weight Body temperature Respiratory rate Heart rate Oxygen saturation Oxygen saturation in Arterial blood by Pulse oximetry Systolic blood pressure Diastolic blood pressure Provider Name and Address Organization Details Last Updated DateTime 3 170.18 cm 31.3 kg/m2 54358.4 7 g 97.7 [degF] 18 /min 82 /min 99 % 99 % 138 mm[Hg] 80 mm[Hg] GERTRUDIS MCNALLY [facility] 12:08:47 Social History Question Answer Notes LastModified by Organizat ion Details LastModified Time Tobacco Smoking Status Current Every Day Smoker [facility] [employer] [facility] 02/24/2023 12:06:11 Which Illicit Or Recreational Drugs Have You Used? Marijuana Information not available 02/24/2023 How Much Tobacco Do You Smoke? 0.5 PPD Information not available 02/24/2023 Have You Recently Traveled Abroad? No Information not available 02/24/2023 Sex: Unknown Functional Status Question Answer Note LastModified by Organizat ion Details LastModified Time Do you use any illicit or recreational drugs? Yes Information not available 02/24/2023 Do you or have you ever used any other forms of tobacco or nicotine? No Information not available 02/24/2023 Mental Status None recorded. Family History Relationship [...] SNOMED-CT Code Diagnosis ICD10 Code Diagnosis Note [id number] [address] [place] [address] 02/08/2022 11:50:40 02/08/2022 13:30:14 [id number] [address] [facility] [place] [address] 04/25/2022 08:28:09 04/25/2022 10:47:42 [id number] [address] [facility] [address] [place] [address] 03/31/2022 16:54:40 03/31/2022 17:43:41 [id number] Dominique Tavares NP [facility] [place] [address] 02/24/2023 11:35:30 02/24/2023 13:23:44 Respiratory tract congestion and cough 894282137 R05.9 Based on your Presentati on, Exam, [...] . Severe Headache Thank you for using [facility] today, please feel free to contact our office if you have any questions or concerns. Community acquired pneumonia 969399013 J18.9 Health Concerns Section Related Observation LastModified by Organization Detai ls LastModified Time None Recorded Concern Status LastModified by Organization Details LastModified Time None Recorded Advance Directives Directive None Recorded Payers Insurance Date Sequence Insurance Name Policy Number Policy Grubbs Covered Member ID Grubbs Member ID Guarantor Name 02/24/2023 1 [facility] - [facility] NET PLAN (MEDICAID HMO) [id number] September Monica Mcgarry [id number] September Zeferino 05/22/2022 [employer] Oc-Medexpr ess Occ Med Generic (Move To Hold) [[id number]] Abi Zeferino Notes Date Note Type Note Provider [...] Dominique Tavares NP [address] [place], [address], [place] - [facility] 02/24/2023 16:32:04 OBGyn Episode No OBEpisode recorded.
[2024-11-08 11:09] VITALS: BP 116/60; PULSE 66; RESP 16; TEMP 36.8; O2SAT 97; BMI 36.5
== END 2024-11-08 11:35 | disposition home or self-care (01) ==
LOC: HO.HMCFM 10:28
PROVIDERS: PCP Family Medicine; Visit Provider Family Medicine
DX: I10 Essential (primary) hypertension (principal); R73.03 Prediabetes; M79.642 Pain in left hand

== ENCOUNTER → 2024-11-08 10:27 | Outpatient (BNVA) | payer OTHER, SELFPAY | PROVIDERS: PCP Family Medicine; Visit Provider Family Medicine | DX: I10 Essential (primary) hypertension (principal); R73.03 Prediabetes; M79.642 Pain in left hand; M79.645 Pain in left finger(s) | CPT/HCPCS: 83036; 99212 ==

== ENCOUNTER 2024-11-11 14:32 | Outpatient (REF) | payer OTHER, SELFPAY ==
--- NOTE | ~2024-11-11 | XR_ITS ---
EXAMINATION: XR HAND, LEFT CLINICAL INFORMATION: M79.642 - Pain in left hand COMPARISON: None available. TECHNIQUE: PA, lateral, and oblique views of the left hand. FINDINGS: No fracture, dislocation, or suspicious bone lesion. There is normal alignment. Moderate to severe osteoarthrosis of the first CMC joint with abundant marginal osteophytic spurring and mild subchondral sclerosis with joint space loss. Milder changes at the STT articulations. No periarticular osteopenia or erosions evident. The remainder of the joint spaces appear preserved. Carpal bones are intact and aligned normally. No discrete soft tissue abnormalities. XR/XR hand LT min 3V IMPRESSION: 1. Moderate to severe osteoarthrosis first CMC joint. 2. No evidence of inflammatory arthropathy. Electronically signed by: Colt Brown MD 11/11/2024 02:50 PM EDT
--- OUTSIDE RECORDS SUMMARY | 2024-11-11 14:35 | XMS_ITS | Data Portability ---
Author Organization [facility], [address] Address [address] [place] [address] Care Team Providers Care Laborer Hoisting Name Role Phone SHEREEN MCCULLOUGH Primary Care Provider Assessment No assessment recorded. Plan of Treatment Reminders Order Date Submit Date Provider Last Modified By Organization Details Last Modified Time Details Appointments None recorded. Lab SARS CoV 2 (COVID-19) Ag, QL, IA, upper respiratory specimen 2022 023 [email or web address] [facility] [address], [address] [place], [address], 3 12:34:04 Referral None recorded. Procedures None recorded. Surgeries None recorded. Imaging XR, chest, 2 view - Persistent cough for 2 weeks . exp wheezing on exam 2022 023 [email or web address] [facility], [address] [place] [address]., [place], [address], 3 13:23:44 Medication Orders doxycycline hyclate 100 mg capsule 2022 023 [facility]acy #1291, [address] [place], [address], 3 13:22:42 levofloxaci n 750 mg tablet 2022 023 [facility] #1291, [address] [place], [address], 3 13:22:42 benzonatate 200 mg capsule 2022 023 [facility] #1291, [address] [place], [address], 3 12:34:04 albuterol sulfate HFA 90 mcg/actuati on aerosol inhaler [email or web address]/Pharmacy #1291, [address] [place], [address], 16:23:44 prednisone 20 mg tablet 2022 023 [facility] #1291, [address] [place], [address], 13:02:15 Patient TargetsNo targets recorded. Patient Instructions Encounter Date Encounter Id Patient Instructions Last Modified By Organization Details Last Modified Time 02/24/2023 [id number] cough: care instructions [email or web address] Not available 02/24/2023 12:34:01 Reason for Referral None Reported. Results Created Date Observation Date Name Description Value Unit Range Abnormal Flag Note LastModifiedBy Organization Detail LastModifiedTime 02/25/2002/24/2023 SARS CoV 2 (COVI D-19) Ag, QL, IA, upper respi rator y speci men Unknown Analyte negati ve Not Available [address] [place], [address], 02/24/2023 12:09:14 02/25/20 23 02/24/2023 XR, chest , 2 view No observ ation record ed. [email or web address] [facility] [address] [facility], [place], [address], 02/24/2023 15:05:07 Result Notes None recorded. Problems Name Problem SNOMED Code Status Onset Date Resolution Date Notes Provider Name and Address Organization Details Recorded Time Hypertensive disorder 06592038 Active 2022 GERTRUDIS DRINKCARLO null, PA - [facility] 12:04:57 Seasonal allergic rhinitis 857929472 Active 2022 GERTRUDIS DRINKWINE null, PA - [facility] 3 12:05:06 Problem Notes None recorded. Procedures Surgical History None recorded. Imaging Results Imaging Date Name Status LastModified by [facility] Details LastModified Time 02/24/2023 XR, chest, 2 view completed [email or web address] [facility] [address] [place], [address], 02/24/2023 15:05:07 Procedure Notes None recorded. Medical Equipment None Reported. Allergies Allergen ID Allergen Name Allergen Category Reaction Reaction Severity Criticality Documentation Date Start Date Code Code System Note Provider Name and Address Organization Details Recorded Time 523780 Substance with sulfonami de structure and antibacte rial mechanism of action (substanc e) medicatio n hives Not available Not available 02/24/2023 92691 8003 SNOMED GERTRUDIS DRINKWINE null, PA - [facility] 3 12:02:59 951392 Ceclor medicatio n hives Not available Not available 02/24/2023 65623 5 RxNorm GERTRUDIS DRINKWINE null, PA - [facility] 3 12:03:13 623642 aspartame food,medi cation rash Not available Not available 02/24/2023 23421 24 RxNorm GERTRUDIS DRINKWINE null, PA - [facility] 3 12:03:30 300603 lanolin environme nt,medica tion rash Not available [...] Updated DateTime 3 170.18 cm 31.3 kg/m2 49232.4 7 g 97.7 [degF] 18 /min 82 /min 99 % 99 % 138 mm[Hg] 80 mm[Hg] GERTRUDIS MCNALLY [employer] Information 12:08:47 Social History Question Answer Notes LastModified by Organizat ion Details LastModified Time Tobacco Smoking Status Current Every Day Smoker [facility] [employer] [facility] 02/24/2023 12:06:11 Which Illicit Or Recreational [...] SNOMED-CT Code Diagnosis ICD10 Code Diagnosis Note [id number] [address] [facility] [place] [address] 02/08/2022 11:50:40 02/08/2022 13:30:14 [id number] [address] [facility] [place] [address] 04/25/2022 08:28:09 04/25/2022 10:47:42 [id number] [address] [facility] [address] [facility] [place] [address] 03/31/2022 16:54:40 03/31/2022 17:43:41 [id number] Dominique [facility]avares NP [facility] [address] [facility] [place] [address] 02/24/2023 11:35:30 02/24/2023 13:23:44 Respiratory tract congestion and cough 160051503 R05.9 Based on your Presentati on, Exam, [...] any questions or concerns. Community acquired pneumonia 206544627 J18.9 Health Concerns Section Related Observation LastModified by Organization Detai ls LastModified Time None Recorded Concern Status LastModified by Organization Details LastModified Time None Recorded Advance Directives Directive None Recorded Payers Insurance Date Sequence Insurance Name Policy Number Policy Grubbs Covered Member ID Grubbs Member ID Guarantor Name 02/24/2023 1 [facility] - HEALTH NET PLAN (MEDICAID HMO) [id number] September Moncia Mcgarry [id number] September Zeferino 05/22/2022 [employer] Oc-Medexpr ess Occ Med Generic (Move To Hold) [[id number]] Abi Zeferino Notes Date Note Type Note [...] Dominique Tavares NP [address] [place], [address], [place] - [facility] 02/24/2023 16:32:04 OBGyn Episode No OBEpisode recorded.
== END 2024-11-11 14:33 | disposition home or self-care (01) ==
LOC: HO.XRAY 14:32
PROVIDERS: PCP Family Medicine; Visit Provider Family Medicine
DX: M79.642 Pain in left hand (principal)
CPT/HCPCS: 73130

== ENCOUNTER → 2024-11-11 14:36 | Outpatient (BNV) | payer OTHER, SELFPAY | PROVIDERS: PCP Family Medicine; Visit Provider Radiology Diagnostic Radiology | DX: M18.12 Unilateral primary osteoarthritis of first carpometacarpal joint, left hand (principal) | CPT/HCPCS: 73130 ==

== ENCOUNTER 2024-11-16 08:35 | Outpatient (REF) | payer OTHER, SELFPAY ==
--- NOTE | ~2024-11-16 | XR_ITS ---
CLINICAL HISTORY: M79.642 - Pain in left hand --- Additional Notes or Special Instructions: Attention base of the thumb 3 views left hand Comparison: 11/11/2024 Findings: No fractures or dislocations There is moderate degenerative narrowing of the 1st CMC with joint origin osteophyte soft tissue fragmentation. No erosions No radiopaque foreign body Impression: Degenerative narrowing with soft tissue joint margin osteophyte fragmentation involving 1st CMC joint This document has been electronically signed by: Tyrel Rojas MD on 11/16/2024 21:10:28
--- OUTSIDE RECORDS SUMMARY | 2024-11-16 08:54 | XMS_ITS | Data Portability ---
Author Organization [facility], [address] Address [address] [place] [address] Care Team Providers Care Boiler Control Room Operator Name Role Phone SHEREEN MCCULLOUGH Primary Care Provider Assessment No assessment recorded. Plan of Treatment Reminders Order Date Submit Date Provider Last Modified By Organization Details Last Modified Time Details Appointments None recorded. Lab SARS CoV 2 (COVID-19) Ag, QL, IA, upper respiratory specimen 2022 023 [email or web address] [facility], [address] [place], [address], 3 12:34:04 Referral None recorded. Procedures None recorded. Surgeries None recorded. Imaging XR, chest, 2 view - Persistent cough for 2 weeks . exp wheezing on exam 2022 023 [email or web address] [facility], [address] [place] [address]., [place], [address], 3 13:23:44 Medication Orders doxycycline hyclate 100 mg capsule 2022 023 [facility]acy #1291, [address] [place], [address], 3 13:22:42 levofloxaci n 750 mg tablet 2022 023 [facility] #1291, [address] [place], [address], 3 13:22:42 benzonatate 200 mg capsule 2022 023 [facility] #1291, [address] [place], [address], 3 12:34:04 albuterol sulfate HFA 90 mcg/actuati on aerosol inhaler [email or web address]/Pharmacy #1291, [address] [place], [address], 16:23:44 prednisone 20 mg tablet 2022 023 [facility] #1291, [address] [place], [address], 13:02:15 Patient TargetsNo targets recorded. Patient Instructions Encounter Date Encounter Id Patient Instructions Last Modified By Organization Details Last Modified Time 02/24/2023 [id number] cough: care instructions [email or web address] Not available 02/24/2023 12:34:01 Reason for Referral None Reported. Results Created Date Observation Date Name Description Value Unit Range Abnormal Flag Note LastModifiedBy Organization Detail LastModifiedTime 02/25/2002/24/2023 SARS CoV 2 (COVI D-19) Ag, QL, IA, upper respi rator y speci men Unknown Analyte negati ve Not Available [address] [place], [address], 02/24/2023 12:09:14 02/25/20 23 02/24/2023 XR, chest , 2 view No observ ation record ed. [email or web address] [facility] [address] [facility], [place], [address], 02/24/2023 15:05:07 Result Notes None recorded. Problems Name Problem SNOMED Code Status Onset Date Resolution Date Notes Provider Name and Address Organization Details Recorded Time Hypertensive disorder 32933713 Active 2022 GERTRUDIS DRINKCARLO null, PA - [facility] 12:04:57 Seasonal allergic rhinitis 265969114 Active 2022 GERTRUDIS DRINKWINE null, PA - [facility] 3 12:05:06 Problem Notes None recorded. Medical Equipment None Reported. Allergies Allergen ID Allergen Name Allergen Category Reaction Reaction Severity Criticality Documentation Date Start Date Code Code System Note Provider Name and Address Organization Details Recorded Time 489442 Substance with sulfonami de structure and antibacte rial mechanism of action (substanc e) medicatio n hives Not available Not available 02/24/2023 94806 8003 SNOMED GERTRUDIS DRINKWINE null, PA - [facility] 3 12:02:59 616380 Ceclor medicatio n hives Not available Not available 02/24/2023 90235 5 RxNorm GERTRUDIS DRINKWINE null, PA - [facility] 3 12:03:13 982291 aspartame food,medi cation rash Not available Not available 02/24/2023 83888 24 RxNorm GERTRUDIS DRINKWINE null, PA - [facility] 3 12:03:30 603358 lanolin environme nt,medica tion rash Not available [...] in Arterial blood by Pulse oximetry Systolic And Diastolic Provider Name and Address Organization Details Last Updated DateTime 170.18 cm 31.3 kg/m2 70666.4 7 g 97.7 [degF] 18 /min 82 /min 99 % 99 % 138/80 mm[Hg] GERTRUDIS LEAHY PA - [facility] 12:08:47 Social History Question Answer Notes LastModified by [employer] Details LastModified Time Tobacco Smoking Status Current Every Day Smoker GERTRUDIS blevins PA - [facility] 02/24/2023 12:06:11 Which Illicit Or Recreational Drugs Have You Used? Marijuana Information not available 02/24/2023 How Much Tobacco Do You Smoke? 0.5 PPD Information not available 02/24/2023 Have You Recently Traveled Abroad? No Information not available 02/24/2023 Sex: Unknown Functional Status Question Answer Note LastModified by [employer] Details LastModified Time Do you use [...] SNOMED-CT Code Diagnosis ICD10 Code Diagnosis Note [id number] [address] [facility] [address] 02/08/2022 11:50:40 02/08/2022 13:30:14 [id number] [address] _[address] [facility] [address] [facility] [place] [place] [address] 04/25/2022 08:28:09 04/25/2022 10:47:42 [id number] [address] [facility] [address] [facility] [place], [place] [address] 03/31/2022 16:54:40 03/31/2022 17:43:41 [id number] Dominique Tavares, ERUM [facility] [address] [facility], [place] [address] 02/24/2023 11:35:30 02/24/2023 13:23:44 Respiratory tract congestion and cough 016459474 R05.9 Based on your Presentati on, Exam, [...] any questions or concerns. Community acquired pneumonia 435937982 J18.9 Health Concerns Section Related Observation LastModified by Organization Detai ls LastModified Time None Recorded Concern Status LastModified by Organization Details LastModified Time None Recorded Advance Directives Directive None Recorded Payers Insurance Date Sequence Insurance Name Policy Number Policy Grubbs Covered Member ID Grubbs Member ID Guarantor Name 02/24/2023 1 [facility] - HEALTH NET PLAN (MEDICAID HMO) [id number] September Monica Mcgarry [id number] September Zeferino 05/22/2022 [employer] Oc-Medexpr ess Occ Med Generic (Move To Hold) [[id number]] September Zeferino Notes Date Note Type Note Provider [...] test neg 02/15 Dominique Tavares NP [address] [place], [address], [place] - [facility] 02/24/2023 16:32:04 OBGyn Episode No OBEpisode recorded.
== END 2024-11-16 08:36 | disposition home or self-care (01) ==
LOC: HO.HOSX 08:35
PROVIDERS: Visit Provider Orthopaedic Surgery
DX: M79.642 Pain in left hand (principal); M18.12 Unilateral primary osteoarthritis of first carpometacarpal joint, left hand
CPT/HCPCS: 73130; 99212

== ENCOUNTER 2024-11-16 11:20 | Outpatient (AMB) | payer OTHER, SELFPAY ==
[2024-11-16 12:09] VITALS: BMI 36.5
--- NOTE | 2024-11-16 12:09 | A.OFFVIS_ITS ---
Vital Signs 11/16/24 12:09 Height 5 ft 7 in Weight 233 lb BMI 36.5 Intake Visit Reasons: OV-L basal joint arthritis s/p inj 09/21/24 Intake Note: September 44 yr old female presents today for her follow up visit for her left basal joint O.A S/P injection 09/21/24. States injection did not help at all and feels injection made her pain worse. States she is wearing her brace as directed with little pain relief. 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 She had a left basal joint injection with me on 09/21/2024 and said that she has had no relief. He has a lot of pain with pinching and gripping activities, which is most of the activities for her in the [employer] department a [employer]. She says she has worked at [employer] doing this job for about 23 years. She only developed trouble in the last 3 or 4 months and is unsure what activity may have triggered it. Now, almost everything she does requires pinching and gripping and causes pain in the base of the left thumb. She denies locking and catching. She denies any known injury. She denies numbness and tingling. [facility] Medical History Pre-diabetes Surgical History No pertinent past surgical history Family History Mother No problems noted. Father No problems noted. 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 Sensation is grossly intact to the tips of all digits. Cap refill brisk. She can make a fist and extend all of her digits. She is most tender to palpation about the basal joint of the left thumb. She has a positive shoulder sign and CMC grind. This is her area of pain, that is worse with activities. No tenderness over the 1st dorsal compartment No tenderness over the MCP or IP joints of the thumb. No tenderness over the A1 dustin and she has no locking or catching of the thumb. Radiographs three views of the left hand were taken today and reviewed by me in clinic: They show no fracture or dislocation. She has basal joint arthritis of the left thumb with subluxation, joint space narrowing and osteophyte formation. Assessment & Plan Assessment & Plan (1) Arthritis of carpometacarpal (CMC) joint of left thumb: Code(s): M18.12 - Unilateral primary osteoarthritis of first carpometacarpal joint, left hand Category: Medical Plan Assessment and plan: 1. Left basal joint osteoarthritis Status post injection 09/21/2024 with dexamethasone and little improvement. I educated her about this condition We discussed the importance of activity modification, and discussed her job related activities at length. We discussed operative and non operative treatment options. I am not recommending surgery at this time. Unfortunately I am not recommending another injection at this time because she only had that last injection about 6 weeks ago. We wrote a note for her at work to return to work on light duty with a 2 lb weight limit and to avoid heavier repetitive pinching and gripping activities. The patient believes that she could likely work at the [employer], and that this may allow her to protect her hand and give it some time to rest from these activities. Again she has worked for [employer] in this capacity for 23 years and only had this problem develop about 4 months ago. I am hopeful that this is an exacerbation of her arthritis her that we can eventually help her have some improvement. For now, what is important his activity modification and avoiding heavy and repetitive pinching and gripping. Follow-up in mid December which will put her at about 3-1/2 months, and we can try another injection at that time with Depo-Medrol. I may keep her out of work for a couple of weeks after the injection to help let it set up. Orders: Orders XR hand LT min 3V Today M79.642 - Pain in left hand Coding Level of Care Code Est Pt Level 4 (31401) Diagnoses Arthritis of carpometacarpal (CMC) joint of left thumb M18.12
== END 2024-11-16 12:52 | disposition home or self-care (01) ==
LOC: HO.HOS 11:21
PROVIDERS: PCP Family Medicine; Visit Provider Orthopaedic Surgery
DX: M18.12 Unilateral primary osteoarthritis of first carpometacarpal joint, left hand (principal)
CPT/HCPCS: 99214

== ENCOUNTER → 2024-11-16 11:23 | Outpatient (BNV) | payer OTHER, SELFPAY | PROVIDERS: Visit Provider Radiology Diagnostic Radiology | DX: M25.742 Osteophyte, left hand (principal) | CPT/HCPCS: 73130 ==

== ENCOUNTER 2025-01-04 12:40 | Outpatient (AMB) | payer OTHER, SELFPAY ==
--- NOTE | 2025-01-04 12:45 | A.OFFVIS_ITS ---
Intake Visit Reasons: OV-L basal joint arthritis s/p inj 09/21/24 Intake Note: Abi is a 44 year old female who presents today for a follow up visit for her left basal joint O.A. Last injection was administered 09/21/24. At her last visit she was given a work note for light duty with a 2 lb weight limit and to avoid heavier repetitive pinching and gripping activities. Currently states that this injection was not helpful, she explains that her pain increased significantly since then. She has been wearing a brace but she states that it is not helpful. She is taking OTC NSAIDs and prescritions medications suchas as Tramadol which also provide no releif. Allergies cefaclor (From CECLOR) Allergy (Intermediate, Verified 11/16/24 12:17) RASH, hives Sulfa (Sulfonamide Antibiotics) (SULFA (SULFONAMIDE ANTIBIOTICS)) Allergy (Intermediate, Verified 11/16/24 12:17) RASH, hives aspartame Adverse Reaction (Severe, Verified 11/16/24 12:17) Blister lactose (LACTOSE) Adverse Reaction (Unknown, Verified 11/16/24 12:17) DIARRHEA lanolin Allergy (Unknown, Uncoded 11/16/24 12:17) rash HPI HPI OV-L basal joint arthritis s/p inj 09/21/24: Details: Abi is a 44 year old right hand dominant Diabetic woman woman who works at [employer] in the [employer]. She had a left basal joint injection with me on 09/21/2024 and said that she has had no relief. She has a lot of pain with pinching and gripping activities, which is most of the activities for her in the [employer] a [employer]. she says her last injection gave her no relief, and her pain is now worse than prior to her previo us injection. She finds limited relief from wearing her comfort cool brace, and is managing her pain with OTC medication. She says she has worked at [employer] doing this job for ~23 years. She only deve loped trouble in sometime in 06/2024, and is unsure what activity may have triggered it. Now, almost everything she does requires pinching and gripping and causes pain in the base of the left thumb. She says she is currently not working at this time due to her pain. She says she cannot do anything with her hand. She says her mother was recently placed in a fpc, and she was somewhat tearful in clinic today. She denies locking and catching. She denies any known injury. She denies numbness and tingling. [facility] Medical History Pre-diabetes Surgical History No pertinent past surgical history Family History Mother No problems noted. Father No problems noted. 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 Sensation is grossly intact to the tips of all digits. Cap refill brisk. She can make a fist and extend all of her digits. She is most tender to palpation about the basal joint of the left thumb. She has a positive shoulder sign and CMC grind. This is her area of pain, that is worse with activities. No tenderness over the 1st dorsal compartment No tenderness over the MCP or IP joints of the thumb. No tenderness over the A1 dustin and she has no locking or catching of the thumb. Radiographs 3 views of the left hand from 11/16/24 were reviewed by me in clinic: They show no fracture or dislocation. She has severe basal joint arthritis of the left thumb with subluxation, joint space narrowing and osteophyte formation. Psych Appearance: grossly normal Affect: normal affect Attitude: cooperative Office Procedures AMB Fracture Care Details: No fracture, injection Fracture Billing Code: Fracture Billing Code Assessment & Plan Assessment & Plan (1) Arthritis of carpometacarpal (CMC) joint of left thumb: Code(s): M18.12 - Unilateral primary osteoarthritis of first carpometacarpal joint, left hand Category: Medical Plan Assessment and plan: 1. Left basal joint osteoarthritis S/P injections on: 01/04/25 S/P injection 09/21/24 with dexamethasone and little improvement. I educated her about this condition We discussed the importance of activity modification, and discussed her job related activities at length. We discussed operative and non operative treatment options. I am not recommending surgery at this time. I recommend a repeat injection today I discussed activity modification, they should limit or avoid any heavy or repetitive pinching or gripping activities She should continue to wear her comfort cool brace with daily activity She should work on ROM exercises, and avoid any gripping or strengthening activities I discussed the use of assistive devices for daily activity She says she has stopped working herself at [employer] in the [employer] department. She says her work does not have light duty available/ Injection #1: The risks and benefits of a steroid injection including but not limited to risk of damage to blood vessels, nerve, tendon, infection, skin bleaching, persistent or worsening pain, and failure to improve symptoms were discussed with the patient and they wish to proceed with the steroid injection. Once consent was obtained the skin over the dorsum of the Left basal joint was sterilely prepped. The joint was then injected with a combination of 1 mL of (40 mg/ml} Depo-Medrol and 1% plain Lidocaine. The patient appears to have tolerated the procedure well and with no complications. She had good early relief before leaving clinic today. She knows that they may not have another steroid injection into this joint for least 4 months. Scribed for Nguyen Lopez MD by Guy Fletcher medical device sales representative, on 01/04/25 at 1:20 PM, EST. Coding Level of Care Code Est Pt Level 3 (24506) Diagnoses Arthritis of carpometacarpal (CMC) joint of left thumb M18.12 CPT Codes Fracture Care - Fracture Billing Code: Fracture Billing Code ([id number])
--- OUTSIDE RECORDS SUMMARY | 2025-01-04 13:51 | XMS_ITS | Data Portability ---
Author Organization [facility], [address] Address [address] [place] [address] Care Team Providers Care Sheet Metal Journeyman Name Role Phone SHEREEN MCCULLOUGH Primary Care Provider [phone] Assessment No assessment recorded. Plan of Treatment Reminders Order Date Submit Date Provider Last Modified By Organization Details Last Modified Time Details Appointments None recorded. Lab SARS CoV 2 (COVID-19) Ag, QL, IA, upper respiratory specimen 2022 023 [email or web address], [address] [place], [address], 3 12:34:04 Referral None recorded. Procedures None recorded. Surgeries None recorded. Imaging XR, chest, 2 view - Persistent cough for 2 weeks . exp wheezing on exam 2022 023 [email or web address] [facility], [address] [place] [address], [place], [address], 3 13:23:44 Medication Orders doxycycline hyclate 100 mg capsule 2022 023 [facility][id number], [address] [place], [address], 3 13:22:42 levofloxaci n 750 mg tablet 2022 023 [facility][id number], [address] [place], [address], 3 13:22:42 benzonatate 200 mg capsule 2022 023 [facility]12[facility], [address] [place], [address], 3 12:34:04 albuterol sulfate HFA 90 mcg/actuati on aerosol inhaler 2022 023 [email or web address] [facility]acy #[id number], [address] [place], [address], 16:23:44 prednisone 20 mg tablet 2022 023 [facility][id number], [address] [place], [address], 13:02:15 Patient TargetsNo targets recorded. Patient Instructions Encounter Date Encounter Id Patient Instructions Last Modified By Organization Details Last Modified Time 02/24/2023 [id number] cough: care instructions [email or web address] Not available 02/24/2023 12:34:01 Reason for Referral None Reported. Results Created Date Observation Date Name Description Value Unit Range Abnormal Flag Note LastModifiedBy Organization Detail LastModifiedTime 02/25/2002/24/2023 SARS CoV 2 (COVI D-19) Ag, QL, IA, upper respi rator y speci men Unknown Analyte negati ve Not Available [address] [place], [address], 02/24/2023 12:09:14 02/25/2002/24/2023 XR, chest , 2 view No observ ation record ed. [email or web address] [facility] [address] [facility], [place], [address], 02/24/2023 15:05:07 Result Notes None recorded. Problems Name Problem SNOMED Code Status Onset Date Resolution Date Notes Provider Name and Address Organization Details Recorded Time Hypertensive disorder 79081704 Active 2022 GERTRUDIS blevins [place] - [facility] 12:04:57 Seasonal allergic rhinitis 948073096 Active 2022 GERTRUDIS DRINKWINE null, PA - [facility] 3 12:05:06 Problem Notes None recorded. Medical Equipment None Reported. Allergies Allergen ID Allergen Name Allergen Category Reaction Reaction Severity Criticality Documentation Date Start Date Code Code System Note Provider Name and Address Organization Details Recorded Time 919748 Substance with sulfonami de structure and antibacte rial mechanism of action (substanc e) medicatio n hives Not available Not available 02/24/2023 00011 8003 SNOMED GERTRUDIS DRINKWINE null, PA - [facility] 3 12:02:59 229603 Ceclor medicatio n hives Not available Not available 02/24/2023 18670 5 RxNorm GERTRUDIS DRINKWINE null, PA - [facility] 3 12:03:13 782491 aspartame food,medi cation rash Not available Not available 02/24/2023 16587 24 RxNorm GERTRUDIS DRINKWINE null, PA - [facility] 3 12:03:30 596845 lanolin environme nt,medica tion rash Not available [...] Last Updated DateTime 170.18 cm 31.3 kg/m2 99726.4 7 g 97.7 [degF] 18 /min 82 /min 99 % 99 % 138/80 mm[Hg] GERTRUDIS LEAHY PA - [facility] 12:08:47 Social History Question Answer Notes LastModified [...] SNOMED-CT Code Diagnosis ICD10 Code Diagnosis Note [id number] [address] [place] [address] 02/08/2022 11:50:40 02/08/2022 13:30:14 [id number] [address] [facility] [address] [place] [address] 04/25/2022 08:28:09 04/25/2022 10:47:42 [id number] [facility] [facility] [address] [facility] [place], [place] [address] 03/31/2022 16:54:40 03/31/2022 17:43:41 [id number] Dominique Tavares NP [facility] [facility] [address] [facility] [address] 02/24/2023 11:35:30 02/24/2023 13:23:44 Respiratory tract congestion and cough 098208792 R05.9 Based on your Presentati on, Exam, [...] any questions or concerns. Community acquired pneumonia 254801461 J18.9 Health Concerns Section Related Observation LastModified by Organization Detai ls LastModified Time None Recorded Concern Status LastModified by Organization Details LastModified Time None Recorded Advance Directives Directive None Recorded Payers Insurance Date Sequence Insurance Name Policy Number Policy Grubbs Covered Member ID Grubbs Member ID Guarantor Name 02/24/2023 1 [facility] PLAN (MEDICAID HMO) [id number] September Monica Mcgarry [id number] September Zeferino 05/22/2022 [employer] [facility] Occ Med Generic (Move To Hold) [[id number]] September Zeferino Notes Date Note Type Note [...] Dominique Tavares NP [address] [place], [address], [place] - [facility] 02/24/2023 16:32:04 OBGyn Episode No OBEpisode recorded.
== END 2025-01-04 13:34 | disposition home or self-care (01) ==
LOC: HO.HOS 12:41
PROVIDERS: PCP Family Medicine; Visit Provider Orthopaedic Surgery
DX: M18.12 Unilateral primary osteoarthritis of first carpometacarpal joint, left hand (principal)
CPT/HCPCS: 20600; 99213

== ENCOUNTER → 2025-01-04 12:40 | Outpatient (BNVA) | payer OTHER, SELFPAY | PROVIDERS: PCP Family Medicine; Visit Provider Orthopaedic Surgery | DX: M18.12 Unilateral primary osteoarthritis of first carpometacarpal joint, left hand (principal); M79.642 Pain in left hand | CPT/HCPCS: 20600; 99212; J1010; J2003 ==

== ENCOUNTER 2025-01-26 13:58 | Outpatient (AMB) | payer OTHER, SELFPAY ==
--- OUTSIDE RECORDS SUMMARY | 2025-01-23 16:31 | XMS_ITS | Continuity of Care Document ---
Author Organization [facility] ter Address [address] [place] [address]- Care Team Providers Care Plastic Fixture Builder Name Role Phone Marquise Zarate MD Primary Care Physician Encounter [facility] Date(s): 01/23/25 - 01/23/[address] [address]- Encounter Diagnosis Osteoarthritis of thumb(Final) - 01/23/25 Discharge Disposition: A-D/C Home Attending Physician: Tristin Bonilla DO Admitting Physician: Tristin Bonilla DO Referring Physician: Not on Staff, Referring MD [...] Date: 11/05/15 Status: Ordered Repeat number: 1 erythromycin 0.5% ophthalmic ointment [...] atus Informant Obese class I Confirmed Active Social History Social History Type Response Smoking Status Current every day sm oker; Type: Cigarettes; Tobacco use times per day: 1PPD; entered on: 11/05/15 Sex Female Sex Representation Female (finding) Patient Care team information Care Team Personnel Name: Elliot PORTILLO , Marquise Reynolds Position: [facility] Outreach Member Role: PCP Address: [address] [place] [address] Telecom: Insurance Providers Guarantor name: [employer]ISSEL Health Plan Information #: 1 Payer: [employer]ER [employer] Payer Identifier: GISSEL Member Number: [id number] Group Number: [id number] Subscriber Identifier: [id number] Relationship to Subscriber: self Coverage Type: MEDICAID Coverage Verification Date: GISSEL Telecom: NA Address:
--- NOTE | 2025-01-26 14:32 | MHC.PC.OV ---
Vital Signs 01/26/25 14:33 01/26/25 16:20 Height 5 ft 7 in Weight 226 lb 4 oz BMI 35.4 BP 162/98 H 128/70 Blood Pressure Location Rt brachial Rt brachial Position Sitting Sitting Respiration 16 Pulse 88 Pulse Source Pulse Oximeter Temp 97.7 F Temp Source Temporal Artery Scan Pulse Oximetry (%) 98 Oxygen Delivery Method Room Air Intake Visit Reasons: ED F/U from [facility] on 01/23 Intake Note: patient is scheduled for a ed follow up for left wrist injury Extension Service Supervisor Required: No Allergies cefaclor (From CECLOR) Allergy (Intermediate, Verified 01/26/25 14:33) RASH, hives Sulfa (Sulfonamide Antibiotics) (SULFA (SULFONAMIDE ANTIBIOTICS)) Allergy (Intermediate, Verified 01/26/25 14:33) RASH, hives aspartame Adverse Reaction (Severe, Verified 01/26/25 14:33) Blister lactose (LACTOSE) Adverse Reaction (Unknown, Verified 01/26/25 14:33) DIARRHEA lanolin Allergy (Unknown, Uncoded 11/16/24 12:17) rash Medication List - Last Reconciled 01/26/25 by Marquise Zarate MD albuterol sulfate 90 mcg/actuation 2 puffs inhalation Q6H PRN fluticasone propionate 50 mcg/actuation 1 spray intranasal Q12H melatonin 3 mg PO BEDTIME PRN metoprolol ta-hydrochlorothiaz 50-25 mg 1 tab PO DAILY norgestimate-ethinyl estradiol 0.18/0.215/0.25 mg-0.035mg (28) (Tri-Linyah) 1 tab PO DAILY valacyclovir 500 mg PO Q12H 14 days Tobacco use date assessed: 04/09/24 Dental Screening Dental Screen Date: 04/09/24 HPI ED F/U from [facility] on 01/23 HPI Details 44 y/o female presents to f/u ED visit 01/23/25 for hand pain. They provided more rigid thumb spica. Was given Toradol and tylenol, trial diclofenac. Pt had recent x-rays that show osteoarthritis of the CMC joint. Ongoing and severe bilateral hand pain. She feels she is unable to work due to pain. HPI Comments History of Present Illness Details Documentation assistance for Marquise Zarate MD, was provided by Luis Romero, Lipstick Molder on 01/26/2025 at 4:37 PM EST. I, Dr. Zarate, have read, observed, and verified documentation. ? [facility] Medical History Pre-diabetes Surgical History No pertinent past surgical history Family History Mother No problems noted. Father No problems noted. Social History Housing: House Alcohol intake: never Patient Tobacco Use Status: Current everyday Tobacco user Cigarette Packs Per Day: 0.5 Cigarettes Per Day: 10 Years Smoked: 16 e-Cigarette/Vaping Use: Never Used Second Hand Smoke Exposure: No service: No Current occupational status: employed Current occupation: [employer] Current occupational exposures/hazards: No Cognitive needs: No Hearing needs: No Vision needs: No Questionnaire Thrive Questionnaire Date Thrive assessed: 08/10/24 I am a: Patient What is your living situation today?: I have a steady place to live Within the past 12 months, did the food you bought not last and you didn't have the money to get more?: Never true Within the past 12 months, did you worry whether your food would run out before you got money to buy more?: Never true Do you have trouble paying for medicines?: No Do you have trouble getting transportation to medical appointments?: No Do you have trouble paying your heating and electricity bill?: No Do you have trouble taking care of your child, family member or friend?: No Do you have trouble with day-to-day activities such as bathing, preparing meals, shopping, managing finances, etc.?: No Are you currently unemployed and looking for a job?: No Are you interested in more education?: No Please select the resources that you would like help with: None Currently or been in a relationship where the following occur: I choose not to answer THRIVE Score: 0 CONOR-7 AMB Questionnaire CONOR-7 Date CONOR - 7 assessed: 04/09/24 Source: Developed by Drs. Aleksandr Clemens, Almaz B.W. Otoniel Levy and colleagues, with an educational mil from [employer]. Review of Systems Const Denies chills, Denies fatigue, Denies fever(s), Denies headache(s) and Denies weakness ENT Denies dizziness and Denies headache(s) Card Denies dyspnea Resp Denies cough, Denies dyspnea, Denies wheezing and Denies other (shortness of breath) Musc Denies numbness and Denies tingling Neuro Denies dizziness, Denies headache(s), Denies numbness, Denies tingling and Denies weakness Psych Denies anxiety and Denies depression Endo Denies fatigue Aller/Immun Denies wheezing Physical exam (Primary Care) Vital Signs: Last Vital Signs Temp 97.7 F 01/26/25 14:33 Pulse 88 01/26/25 14:33 Resp 16 01/26/25 14:33 BP 128/70 01/26/25 16:20 Pulse Ox 98 01/26/25 14:33 Oxygen Delivery Method Room Air 01/26/25 14:33 BMI result Body Mass Index 35.4 Tobacco/Smoking Status: Tobacco use Status Tobacco use date assessed 04/09/24 01/26/25 14:35 Patient Tobacco Use Status Current everyday Tobacco 01/26/25 14:35 e-Cigarette/Vaping Use Never Used 01/26/25 14:35 Thrive Assessment: Date of Thrive Assessment Date Thrive assessed 08/10/24 01/26/25 14:35 Currently or been in a relationship where the following occur: I choose not to answer Const General: well developed; No acute distress Nutritional Appearance: well nourished Orientation/consciousness: patient oriented x3 HENMT Head: Yes normocephalic and Yes atraumatic Eyes General: appearance normal, both eyes and all related structures Pupils: Equal, round and reactive pupils present EOM: EOMs intact bilaterally Resp Effort & Inspection: normal respiratory effort Neuro General: patient oriented x3 and gait normal Cranial nerves: Yes Equal, round and reactive pupils present Psych Affect: normal affect Coding Level of Care Code TCM Mod MDM <= 7 Days Diagnoses Osteoarthritis of thumb M18.10 Hand pain M79.643 Assessment & Plan Assessment & Plan (1) Osteoarthritis of thumb: Code(s): M18.10 - Unilateral primary osteoarthritis of first carpometacarpal joint, unspecified hand Category: Medical (2) Hand pain: Code(s): M79.643 - Pain in unspecified hand Category: Medical Plan Ongoing and severe bilateral hand pain. Unable to work and will send a letter keeping her out of work through February 20 with tentati return date on February 21. I will see her back for re-evaluation on February 16. She has an upcoming appointment with [facility] this week. Trial Celebrex Continue diclofenac topical Ice/heat She has a new spica cast which has more stiffness to it Will check inflammatory markers and autoimmune markers (these were ordered 2 days ago see message). Doubt these will be positive but should be ruled out. Medications: New celecoxib (Celebrex) 200 mg PO BID PRN 60 caps 3RF pain 30 days
[2025-01-26 14:33] VITALS: BP 162/98; PULSE 88; RESP 16; TEMP 36.5; O2SAT 98; BMI 35.4
--- OUTSIDE RECORDS SUMMARY | 2025-01-26 14:33 | XMS_ITS | Clinical Summary ---
Author Organization Patient Business [facility] Address [address] [place] [address] Care Team Providers Care Field Operations Supervisor Name Role Phone Marquise Zarate MD Primary Care Provider Encounters Date Type Department Care Team Description 01/24/2025 Lab Requisition [facility] - Main Lab [address] [place] [address] Marquise James MD Encounter for gynecological examination (general) (routine) without abnormal findings from Last 3 Months Social History Tobacco Use Types Packs/Day Years Used Date Smoking Tobacco: Never Assessed Comments Unknown Sex and Gender Information Value Date Recorded Sex Assigned at Not on file Legal Sex Female 6:54 PM EST Gender Identity Not on file Sexual Orientation Not on file Plan of Treatment Upcoming Encounters Date Type Department Care Team (Late st Contact Info) Description 02/22/2025 1:00 PM EDT [facility]ment [facility] [address] [place] [address] Health Maintenance Due Date Last Done Comments DTaP,Tdap,and Td Vaccines (1 - Tdap) 10/19/1999 Hepatitis B Vaccines (1 of 3 - 19+ 3-dose series) 10/19/1999 HIV Screening 07/22/2023 Hepatitis C Screening 07/22/2023 Social Influencers of Health Screening 07/22/2023 COVID-19 Vaccine (1 - 2023-2 5 season) 2024 Depression Screening 06/23/2024 Influenza Vaccine (#1) 2025 Breast Cancer Screening 07/17/2025 07/17/19 24, 06/10/2022 Cervical Cancer Screening: HPV 01/21/2030 01/21/2025 HIB Vaccines Aged Out No longer eligi ble based on patient's age to complete this topic HPV Vaccines Aged Out No longer eligi ble based on patient's age to complete this topic Hepatitis A Vaccines Aged Out No long er eligible based on patient's age to complete this topic IPV Vaccines Aged Out No longer eligi ble based on patient's age to complete this topic MMR Vaccines Aged Out No longer eligi ble based on patient's age to complete this topic Meningococcal ACWY Vaccine Aged Out N o longer eligible based on patient's age to complete this topic Meningococcal B Vaccine Aged Out No l onger eligible based on patient's age to complete this topic Pneumococcal Vaccine: Pediatrics (0 to 5 Years) and At-Risk Patients (6 to 49 Years) Aged Out No longer eligible b ased on patient's age to complete this topic RSV Immunization Patients Under 20 months Aged Out No longer eligible b ased on patient's age to complete this topic Varicella Vaccines Aged Out No longer eligible based on patient's age to complete this topic Procedures Procedure Name Priority Date/Time Associated Diagnosis Comments HPV WITH REFLEX GENOTYPE Routine 01/21/2025 12:00 PM EDT Encounter for gynecological examination (general) (routine) without abnormal findings [facility] SCREENING DIGITAL Routine 07/17/2023 3:58 PM EST Encounter for screening mammogram for malignant neoplasm of breast from Last 3 Months or Most Recently Relevant to Health Maintenance Results * HPV with reflex genotype (01/21/2025 12:00 PM EDT) HPV Negative Negative LAB MICROBIOLOGY METHOD 01/24/2025 1:[address] [facility] Brushing/Spatula Cervix uteri structure / Unknown 01/21/2025 12:00 PM EDT 01/24/2025 6:39 AM EDT us Marquise James MD LAB MOLECULAR DIAGNOSTICS JOSE SHARMA Final Result [facility] [address] [place] [address], * [facility] SCREENING DIGITAL (07/17/2023 3:58 PM EST) Anatomical Region Laterality Modality Mammography 07/17/2023 1:29 PM EST Narrative 07/17/2023 3:58 PM EST [facility] Diagnostic Imaging Department [address] [place] [address] Patient: IRVINSEPTEMBER /Age/Sex: 1980 - 42 - F Unit#: [id number] Location/Status: SPDIMAM/REG CLI Mnemonic/Ordering Site: [facility] Ordering Physician: MARQUISE JAMES MD [facility] Screening Digital - 07/17/23 - 1403 Report Status:Signed EXAM: [facility] Screening Digital EXAM DATE AND TIME: 07/17/2023 2:04 PM HISTORY: Screening. COMPARISON: 06/10/22 TECHNIQUE: Bilateral digital breast tomosynthesis was performed in the CC and MLO projections. Computer aided detection with [employer] 3D 3.1 was employed. TISSUE DENSITY: b. There are scattered areas of fibroglandular density. FINDINGS: No suspicious masses, grouped microcalcifications, or areas of architectural distortion are seen. The skin and vascularity are unremarkable. IMPRESSION: Stable mammographic appearance of the breasts. No evidence of malignancy is seen. A negative mammogram in the presence of a clinically suspicious palpable abnormality does not preclude the possibility of malignancy or alter the indications for biopsy. BI-RADS: Category 1: Negative RECOMMENDATION(S): 1: Routine screening mammogram BILATERAL in 1 year. Dictating Physician: ANANYA MEYERS MD Electronically Signed by: ANANYA MEYERS MD Dic Date/Time: 07/17/23 1558 Sign date/Time: 07/17/23 1558 Procedure Note Ananya Meyers MD - 02/09/2024 [facility] Diagnostic Imaging Department [address] [place] [address] Patient: IRVINABI /Age/Sex: 1980 - 42 - F Unit#: [id number] Location/Status: [facility] CLI Mnemonic/Ordering Site: [facility] Ordering Physician: MARQUISE JAMES MD [facility] Screening Digital - 07/17/23 - 1403 Report Status:Signed EXAM: [facility] Screening Digital EXAM DATE AND TIME: 07/17/2023 2:04 PM HISTORY: Screening. COMPARISON: 06/10/22 TECHNIQUE: Bilateral digital breast tomosynthesis was performed in the CCand MLO projections. Computer aided detection with [employer] 3D 3.1was employed. TISSUE DENSITY: b. There are scattered areas of fibroglandular density. FINDINGS: No suspicious masses, grouped microcalcifications, or areas ofarchitectural distortion are seen. The skin and vascularity are unremarkable. IMPRESSION: Stable mammographic appearance of the breasts. No evidence of malignancyis seen. A negative mammogram in the presence of a clinically suspicious palpable abnormality does not preclude the possibility of malignancy or alter the indications for biopsy. BI-RADS: Category 1: Negative RECOMMENDATION(S): 1: Routine screening mammogram BILATERAL in 1 year. Dictating Physician: ANANYA MEYERS MD Electronically Signed by: ANANYA MEYERS MD Dic Date/Time: 07/17/23 1558 Sign date/Time: 07/17/23 155 Marquise James MD IMG BI PROCEDURES Final Result from Last 3 Months or Most Recently Relevant to Health Maintenance Insurance [facility] [place] [address] Care Teams Field Operations Supervisor Relationship Specialty Start Date End Date Marquise Zarate MD [address] [place] [address] Dr Taty [place] PCP - General Family Medicine 01/24/25
[2025-01-26 16:20] VITALS: BP 128/70
== END 2025-01-26 16:48 | disposition home or self-care (01) ==
LOC: HO.HMCFM 13:59
PROVIDERS: PCP Family Medicine; Visit Provider Family Medicine
DX: M18.12 Unilateral primary osteoarthritis of first carpometacarpal joint, left hand (principal); M79.641 Pain in right hand; M79.642 Pain in left hand

== ENCOUNTER → 2025-01-26 13:58 | Outpatient (BNVA) | payer OTHER, SELFPAY | PROVIDERS: PCP Family Medicine; Visit Provider Family Medicine | DX: M79.642 Pain in left hand (principal); M79.641 Pain in right hand; M18.12 Unilateral primary osteoarthritis of first carpometacarpal joint, left hand | CPT/HCPCS: 99212 ==

== ENCOUNTER 2025-01-27 12:21 | Outpatient (REF) | payer OTHER, SELFPAY ==
[2025-01-27 12:31] LABS: MANUAL DIFF FLAG NO
--- OUTSIDE RECORDS SUMMARY | 2025-01-27 12:36 | XMS_ITS | Clinical Summary ---
Author Organization Patient Business [facility] Address [address] [place] [address] Care Team Providers Care Wood Die Maker Name Role Phone Marquise Zarate MD Primary Care Provider Encounters Date Type Department Care Team Description 01/24/2025 Lab Requisition [facility] - Main Lab [address] [place] [address] Marquise James MD Encounter for [...] PM EDT Appointment [facility] [address] [place] [address] Health Maintenance Due Date Last [...] Procedure Name Priority Date/Time Associated Diagnosis Comments PAP SMEAR Routine 01/21/2025 12:00 PM EDT Encounter for gynecological examination (general) (routine) without abnormal findings HPV WITH REFLEX GENOTYPE Routine 01/21/2025 12:00 PM EDT Encounter for gynecological examination (general) (routine) without abnormal findings [facility] SCREENING DIGITAL Routine 07/17/2023 3:58 PM EST Encounter for screening mammogram for malignant neoplasm of breast from Last 3 Months or Most Recently Relevant to Health Maintenance Results * HPV with reflex genotype (01/21/2025 12:00 PM EDT) HPV Negative Negative LAB MICROBIOLOGY METHOD 01/24/2025 1:13 PM EDT [facility] Brushing/Spatula Cervix uteri structure / Unknown 01/21/2025 12:00 PM EDT 01/24/2025 6:39 AM EDT Marquise James MD LAB MOLECULAR DIAGNOSTICS JOSE SHARMA Final Result [facility] [address] [place] [address], [place] [phone] * Pap smear (01/21/2025 12:00 PM EDT) Interpretation Negative for intraepithelial lesion or malignancy 01/26/2025 4:13 PM EDT [facility] General Categorization Negative 01/26/2025 4:13 PM EDT [facility] LMP 01/07/2025 01/26/2025 4:13 PM EDT [facility] Specimen Adequacy Satisfactory for evaluation, endocervical/kapadia sformation zone component present 01/26/2025 4:13 PM EDT [facility] Pap Methodology Liquid Based Pap Test 01/26/2025 4:13 PM EDT [facility] Disclaimer The Pap test is a screening test which carries an inherent false negative rate. These test results should be correlated with the patient's clinical findings and history. This Pap test was processed using an automated screening system. Technical cytopathology services provided by [facility], at [address] [place] [address] (CLIA # [id number]/Mackenzie Foster MD, Casino Gaming Worker.) 01/26/2025 4:13 PM EDT [facility] Console Pap Interpretation Reported 01/26/2025 4:13 PM EDT [facility] Brushing/Spatula Cervix uteri structure / Unknown 01/21/2025 12:00 PM EDT 01/24/2025 6:39 AM EDT Marquise James MD LAB CYTOLOGY ORDERABLES Final Result [facility] [address] [place] [address], [place] [phone] * [facility]HEL[facility] SCREENING DIGITAL (07/17/2023 3:58 PM EST) Anatomical Region Laterality Modality Mammography 07/17/2023 1:29 PM EST Narrative 07/17/2023 3:58 PM EST [facility] Diagnostic Imaging Department [address] [place] [address] Patient: IRVINSEPTEMBER /Age/Sex: 1980 42 - F Unit#: [id number] Location/Status: SPDIMAM/REG CLI Mnemonic/Ordering Site: [facility] Ordering Physician: MARQUISE JAMES MD [facility] Screening Digital - 07/17/23 - 1403 Report Status:Signed EXAM: [facility] Screening Digital EXAM DATE AND TIME: 07/17/2023 2:04 PM HISTORY: Screening. COMPARISON: 06/10/22 TECHNIQUE: Bilateral digital breast tomosynthesis was performed in the CC and MLO projections. Computer aided detection with [employer] 3D 3.1 was employed. TISSUE DENSITY: b. [...] Procedure Note Ananya Meyers MD - 02/09/2024 [facility] Diagnostic Imaging Department [address] [place] [address] Patient: IRVINABI /Age/Sex: 1980 - 42 - F Unit#: [id number] Location/Status: [facility] CLI Mnemonic/Ordering Site: [facility] Ordering Physician: MARQUISE JAMES MD [facility] Screening Digital - 07/17/23 - 1403 Report Status:Signed EXAM: [facility] Screening Digital EXAM DATE AND TIME: 07/17/2023 2:04 PM HISTORY: Screening. COMPARISON: 06/10/22 TECHNIQUE: Bilateral digital breast tomosynthesis was performed in the CCand MLO projections. Computer aided detection with [employer] 3D 3.1was employed. TISSUE DENSITY: b. There [...] Signed by: ANANYA MEYERS MD Dic Date/Time: 07/17/231557 Sign date/Time: 07/17/231557 Marquise James MD IMG BI PROCEDURES Final Result from Last 3 Months or Most Recently Relevant to Health Maintenance Insurance [facility] Care Teams Wood Die Maker Relationship Specialty Start Date End Date Marquise Zarate MD [address] [place] [address] Dr Fiore [place] PCP - General Family Medicine 01/24/25
[2025-01-27 13:37] LABS: Hematocrit 41.3 % (37.0-47.0); Hemoglobin 13.6 g/dl (12.0-16.0); Imm Gran Abs Auto 0.03 X10*3/uL (0.00-0.03); Imm Gran Pct Auto 0.3 % (0.0-0.4); Lymphocytes Absolute Auto 2.4 X10*3/uL (1.2-4.9); Mean Corpuscular HGB Conc 32.9 g/dl (31.0-35.0); Mean Corpuscular Hemoglobin 29.1 pg (27.0-33.0); Mean Corpuscular Volume 88.2 fL (80.0-98.0); NRBC Abs Auto 0.000 X10*3/uL (0.0-0.012); NRBC Pct Auto 0.0 /100WBC (0.0-0.2); Platelet Count 345 X10*3/uL (160-400); Red Blood Count 4.68 X10*6/uL (4.20-5.50); White Blood Count 10.0 X10*3/uL (4.8-10.8)
[2025-01-27 14:07] LABS: Alanine Aminotransferase 23 U/L (0-31); Albumin Level 4.4 g/dL (3.5-5.0); Alkaline Phosphatase 55 U/L (39-117); Anion Gap 12 (12-20); Aspartate Amino Transferase 22 U/L (5-31); Blood Urea Nitrogen 13 mg/dL (9-16); Calcium 9.4 mg/dL (8.4-10.2); Carbon Dioxide 30 mmol/L (22-29); Chloride 100 mmol/L (96-108); Estimated Glomerular Filt Rate > 60; Potassium 3.3 mmol/L (3.3-5.1); Sodium 139 mmol/L (135-145); Total Protein 7.8 g/dL (6.5-8.0)
[2025-01-29 13:13] LABS: Anti Nuclear Antibody Screen NEGATIVE (NEGATIVE)
== END 2025-01-27 12:22 | disposition home or self-care (01) ==
LOC: HO.LAB 12:21
PROVIDERS: PCP Family Medicine; Visit Provider Family Medicine
DX: Z00.00 Encounter for general adult medical examination without abnormal findings (principal); R53.83 Other fatigue
CPT/HCPCS: 36415; 80053; 84443; 85025; 85652; 86038; 86141; 86200; 86431

== ENCOUNTER 2025-02-16 10:33 | Outpatient (AMB) | payer OTHER, SELFPAY ==
--- NOTE | 2025-02-16 10:47 | MHC.PC.OV ---
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 Required: No Is last menstrual period known: Yes Last menstrual period: 01/21/25 Post menopausal: No Patient : No Allergies cefaclor (From CECLOR) Allergy (Intermediate, Verified 02/16/25 10:51) RASH, hives Sulfa (Sulfonamide Antibiotics) (SULFA (SULFONAMIDE ANTIBIOTICS)) Allergy (Intermediate, Verified 02/16/25 10:51) RASH, hives aspartame Adverse Reaction (Severe, Verified 02/16/25 10:51) Blister lactose (LACTOSE) Adverse Reaction (Unknown, Verified 02/16/25 10:51) DIARRHEA lanolin Allergy (Unknown, Uncoded 11/16/24 12:17) rash Medication List - Last Reconciled 02/16/25 by Marquise Zarate MD albuterol sulfate 90 mcg/actuation 2 puffs inhalation Q6H PRN celecoxib (Celebrex) 200 mg PO BID PRN 30 days fluticasone propionate 50 mcg/actuation 1 spray intranasal Q12H melatonin 3 mg PO BEDTIME PRN metoprolol ta-hydrochlorothiaz 50-25 mg 1 tab PO DAILY norgestimate-ethinyl estradiol 0.18/0.215/0.25 mg-0.035mg (28) (Tri-Linyah) 1 tab PO DAILY valacyclovir 500 mg PO Q12H 14 days Tobacco use date assessed: 02/16/25 Dental Screening Dental Screen Date: 02/16/25 Did you have a dental visit in the last 12 months?: Yes Did you have a dental problem in the last 6 months where you did not have access to dental care?: No Was dental information given to patient?: Patient has dentist HPI f/u hand pain, form HPI Details 44 y/o female presents to f/u hand pain, ability to return to work. Continues to take celebrex which has been helping. Reports anxiety. [facility] Medical History Pre-diabetes Surgical History No pertinent past surgical history Family History Mother No problems noted. Father No problems noted. 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 Current occupational exposures/hazards: No Cognitive needs: No Hearing needs: No Vision needs: No Female Reproductive History Menstrual Date of last menstrual period: 01/21/25 Questionnaire Thrive Questionnaire Date Thrive assessed: 08/10/24 I am a: Patient What is your living situation today?: I have a steady place to live Within the past 12 months, did the food you bought not last and you didn't have the money to get more?: Never true Within the past 12 months, did you worry whether your food would run out before you got money to buy more?: Never true Do you have trouble paying for medicines?: No Do you have trouble getting transportation to medical appointments?: No Do you have trouble paying your heating and electricity bill?: No Do you have trouble taking care of your child, family member or friend?: No Do you have trouble with day-to-day activities such as bathing, preparing meals, shopping, managing finances, etc.?: No Are you currently unemployed and looking for a job?: No Are you interested in more education?: No Please select the resources that you would like help with: None Currently or been in a relationship where the following occur: I choose not to answer THRIVE Score: 0 CONOR-7 AMB Questionnaire CONOR-7 Date CONOR - 7 assessed: 04/09/24 Source: Developed by Drs. Aleksandr Clemens, Almaz Levy, Otoniel Renae and colleagues, with an educational mil from [employer]. Review of Systems Const Denies chills, Denies fatigue, Denies fever(s), Denies headache(s) and Denies weakness ENT Denies dizziness and Denies headache(s) Card Denies dyspnea Resp Denies cough, Denies dyspnea, Denies wheezing and Denies other (shortness of breath) Musc Denies numbness and Denies tingling Neuro Denies dizziness, Denies headache(s), Denies numbness, Denies tingling and Denies weakness Psych Denies anxiety and Denies depression Endo Denies fatigue Aller/Immun Denies wheezing Physical exam (Primary Care) Vital Signs: Last Vital Signs Temp 98.1 F 02/16/25 10:58 Pulse 67 02/16/25 10:58 Resp 16 02/16/25 10:58 BP 107/57 L 02/16/25 10:58 Pulse Ox 99 02/16/25 10:58 Oxygen Delivery Method Room Air 02/16/25 10:58 BMI result Body Mass Index 36.9 Tobacco/Smoking Status: Tobacco use Status Tobacco use date assessed 02/16/25 02/16/25 10:59 Patient Tobacco Use Status Current everyday Tobacco 02/16/25 10:59 e-Cigarette/Vaping Use Never Used 02/16/25 10:59 Thrive Assessment: Date of Thrive Assessment Date Thrive assessed 08/10/24 02/16/25 10:59 Currently or been in a relationship where the following occur: I choose not to answer Const General: well developed; No acute distress Nutritional Appearance: well nourished Orientation/consciousness: patient oriented x3 HENMT Head: Yes normocephalic and Yes atraumatic Eyes General: appearance normal, both eyes and all related structures Pupils: Equal, round and reactive pupils present EOM: EOMs intact bilaterally Resp Effort & Inspection: normal respiratory effort Auscultation: clear to auscultation bilaterally Cardio Rate: regular rate Rhythm: regular rhythm Heart sounds: S1 normal heart sound present, S2 normal heart sound present, no gallops, no murmurs and no rubs Neuro General: patient oriented x3 and gait normal Cranial nerves: Yes Equal, round and reactive pupils present Psych Affect: normal affect Coding Level of Care Code Est Pt Level 4 (05656) Diagnoses Hand pain M79.643 Anxiety F41.9 Assessment & Plan Assessment & Plan (1) Hand pain: Code(s): M79.643 - Pain in unspecified hand Category: Medical Plan: Ongoing hand pain and patient has seen Orthopedics 2nd opinion. They suspect some arthritis and also possible carpal tunnel syndrome They have given her a forte brace and plan and EMG She continues Celebrex which only helps partially. She says that cannabis also helps with her pain Ortho is keeping her out of work at least until the EMG. They are dealing with her paperwork for this. Continue Celebrex and follow-up with ortho as recommended (2) Anxiety: Code(s): F41.9 - Anxiety disorder, unspecified Category: Medical Plan: Patient notes increased anxiety and says she has tried SSRIs in the past. She says that cannabis is helping and inquires about a medical use card. She will look in to medical use cards with other providers Offered therapist and she declines this for now but will think about.
[2025-02-16 10:58] VITALS: BP 107/57; PULSE 67; RESP 16; TEMP 36.7; O2SAT 99; BMI 36.9
--- OUTSIDE RECORDS SUMMARY | 2025-02-16 11:26 | XMS_ITS | Clinical Summary ---
Author Organization Patient Business [facility] Address [address] [place] [address] Care Team Providers Care Ore Puncher Name Role Phone Marquise Zarate MD Primary Care Provider Encounters Date Type Department Care Team Description 01/24/2025 Lab Requisition [facility] - Main Lab [address] [place] [address] Marquise Jmaes MD Encounter for gynecological examination (general) (routine) [...] PM EDT Appointment [facility] at [facility] [address] [place] [address] Health Maintenance Due Date Last [...] MICROBIOLOGY METHOD 01/24/2025 1:13 PM EDT [facility] Brushing/Spatula Cervix uteri structure / Unknown 01/21/2025 12:00 PM EDT 01/24/2025 6:39 AM EDT Marquise James MD LAB MOLECULAR DIAGNOSTICS JOSE SHARMA Final Result [facility] [address] [place] [address], [place] [phone] * Pap smear (01/21/2025 12:00 PM EDT) Interpretation Negative for intraepithelial lesion or malignancy 01/26/2025 4:13 PM EDT [facility] General Categorization Negative 01/26/2025 4:13 PM EDT [facility] LMP 01/07/2025 01/26/2025 4:13 PM EDT [facility] Specimen Adequacy Satisfactory for evaluation, endocervical/kapadia sformation zone component present 01/26/2025 4:13 PM EDT [facility] Pap Methodology Liquid Based Pap Test 01/26/2025 4:13 PM EDT [facility] Disclaimer The Pap test is a screening test which carries an inherent false negative rate. These test results should be correlated with the patient's clinical findings and history. This Pap test was processed using an automated screening system. Technical cytopathology services provided by [facility], at [address] [place] [address] (CLIA # [id number]/Mackenzie Foster MD, Food Service Ambassador.) 01/26/2025 4:13 PM EDT [facility] Console Pap Interpretation Reported 01/26/2025 4:13 PM EDT [facility] Brushing/Spatula Cervix uteri structure / Unknown 01/21/2025 12:00 PM EDT 01/24/2025 6:39 AM EDT Marquise James MD LAB CYTOLOGY ORDERABLES Final Result [facility] [address] [place] [address], [place] [phone] * MICHELLE SCREENING DIGITAL (07/17/2023 3:58 PM EST) Anatomical Region Laterality Modality Mammography 07/17/2023 1:29 PM EST Narrative 07/17/2023 3:58 PM EST [facility] Diagnostic Imaging Department [address] [place] [id number] Patient: IRVINSEPTEMBER /Age/Sex: 1980 42 - F Unit#: [id number] Location/Status: SPDIMAM/REG CLI Mnemonic/Ordering Site: [facility] Ordering Physician: MARQUISE JAMES MD [facility] Screening Digital - 07/17/23 - 1403 Report Status:Signed EXAM: [facility] Screening Digital EXAM DATE AND TIME: 07/17/2023 2:04 PM HISTORY: Screening. COMPARISON: 06/10/22 TECHNIQUE: Bilateral digital breast tomosynthesis was performed in the CC and MLO projections. Computer aided detection with [employer] 3D 3.1 was employed. TISSUE DENSITY: b. [...] Procedure Note Ananya Meyers MD - 02/09/2024 [facility] Diagnostic Imaging Department [address] [place] [address] Patient: IRVINABI /Age/Sex: 1980 - 42 - F Unit#: [id number] Location/Status: [facility] CLI Mnemonic/Ordering Site: [facility] Ordering Physician: MARQUISE JAMES MD [facility] Screening Digital - 07/17/23 - 1403 Report Status:Signed EXAM: [facility] Screening Digital EXAM DATE AND TIME: 07/17/2023 2:04 PM HISTORY: Screening. COMPARISON: 06/10/22 TECHNIQUE: Bilateral digital breast tomosynthesis was performed in the CCand MLO projections. Computer aided detection with [employer] AI 3D 3.1was employed. TISSUE DENSITY: b. [...] Most Recently Relevant to Health Maintenance Insurance [facility] Care Teams Ore Puncher Relationship Specialty Start Date End Date Marquise Zarate MD [address] [place] [address] Dr Fi[place] PCP - General Family Medicine 01/24/25
--- OUTSIDE RECORDS SUMMARY | 2025-02-16 11:26 | XMS_ITS | Encounter Summary ---
Author Organization [facility] Address [id number] [place] [id number] Care Team Providers Care Child Life Assistant Name Role Phone Marquise Zarate MD Primary Care Provider Encounter Details Date Type Department Care Team (Latest Contact Info) Description 01/24/2025 Lab Requisition [facility] - Main Lab [address] [facility] [employer] [place] [address] Marquise James MD [address] [phone] Encounter for gynecological examination (general) (routine) without abnormal findings Social History Tobacco Use Types Packs/Day Years Used Date Smoking Tobacco: Never Assessed Comments Unknown Sex and Gender Information Value Date Recorded Sex Assigned at Not on file Legal Sex Female 6:54 PM EST Gender Identity Not on file Sexual Orientation Not on file documented as of this encounter Plan of Treatment Upcoming Encounters Date Type Department Care Team (Late st Contact Info) Description 02/22/2025 1:00 PM EDT Appointment [facility] [address] [place] [address] documented as of this encounter Procedures Procedure Name Priority Date/Time Associated Diagnosis Comments HPV WITH REFLEX GENOTYPE Routine 01/21/2025 12:00 PM EDT Encounter for gynecological examination (general) (routine) without abnormal findings PAP SMEAR Routine 01/21/2025 12:00 PM EDT Encounter for gynecological examination (general) (routine) without abnormal findings documented in this encounter Results * HPV with reflex genotype (01/21/2025 12:00 PM EDT) HPV Negative Negative LAB MICROBIOLOGY METHOD 01/24/2025 1:[address] [facility] Brushing/Spatula Cervix uteri structure / Unknown 01/21/2025 12:00 PM EDT 01/24/2025 6:39 AM EDT us Marquise James MD LAB MOLECULAR DIAGNOSTICS JOSE SHARMA Final Result [facility] [address] [place] [address], * Pap smear (01/21/2025 12:00 PM EDT) Interpretation Negative for intraepithelial lesion or malignancy 01/26/2025 4:[address] [facility] General Categorization Negative 01/26/2025 4:[address] [facility] LMP 01/07/2025 01/26/2025 4:[address] [facility] Specimen Adequacy Satisfactory for evaluation, endocervical/kapadia sformation zone component present 01/26/2025 4:[address] [facility] Pap Methodology Liquid Based Pap Test 01/26/2025 4:[address] [facility] Disclaimer The Pap test is a screening test which carries an inherent false negative rate. These test results should be correlated with the patient's clinical findings and history. This Pap test was processed using an automated screening system. Technical cytopathology services provided by [facility], at [address] [place] [address] (CLIA # [id number]/Mackenzie Foster MD, Lithographic Press Operator.) 01/26/2025 4:[address] [facility] Console Pap Interpretation Reported 01/26/2025 4:[address] [facility] Brushing/Spatula Cervix uteri structure / Unknown 01/21/2025 12:00 PM EDT 01/24/2025 6:39 AM EDT Marquise James MD LAB CYTOLOGY ORDERABLES Final Result [facility] [address] [place] [address], documented in this encounter Visit Diagnoses Diagnosis Encounter for gynecological examination (general) (routine) without abnormal findings Encounter for screening mammogram for breast cancer documented in this encounter Care Teams Child Life Assistant Relationship Specialty Start Date End Date Marquise Zarate MD [address] [place] [address] Dr Posey ID PCP - General Family Medicine 01/24/25 documented as of this encounter
== END 2025-02-16 11:35 | disposition home or self-care (01) ==
LOC: HO.HMCFM 10:34
PROVIDERS: PCP Family Medicine; Visit Provider Family Medicine
DX: M79.643 Pain in unspecified hand (principal); F41.9 Anxiety disorder, unspecified

== ENCOUNTER → 2025-02-16 10:33 | Outpatient (BNVA) | payer OTHER, SELFPAY | PROVIDERS: PCP Family Medicine; Visit Provider Family Medicine | DX: R73.03 Prediabetes (principal); M79.642 Pain in left hand; F41.9 Anxiety disorder, unspecified | CPT/HCPCS: 99212 ==

== ENCOUNTER 2025-05-26 09:09 | Outpatient (AMB) | payer OTHER, SELFPAY ==
--- NOTE | 2025-05-26 09:11 | A.OFFPC_ITS ---
Vital Signs 05/26/25 09:15 Height 5 ft 7 in Weight 247 lb BMI 38.7 BP 132/78 Blood Pressure Location Lt brachial Position Sitting Respiration 13 Pulse 56 Pulse Source Pulse Oximeter Temp 95.7 F L Temp Source Oral Pulse Oximetry (%) 98 Oxygen Delivery Method Room Air Intake Visit Reasons: f/u pre-diabetes, HTN Intake Note: Follow up on htn and pre-diabetes. Patient c/o diarrhea x 1 month. Family Preservation Caseworker Required: No Allergies cefaclor (From CECLOR) Allergy (Intermediate, Verified 05/26/25 09:12) RASH, hives Sulfa (Sulfonamide Antibiotics) (SULFA (SULFONAMIDE ANTIBIOTICS)) Allergy (Intermediate, Verified 05/26/25 09:12) RASH, hives aspartame Adverse Reaction (Severe, Verified 05/26/25 09:12) Blister lactose (LACTOSE) Adverse Reaction (Unknown, Verified 05/26/25 09:12) DIARRHEA lanolin Allergy (Unknown, Uncoded 05/26/25 09:12) rash Medication List - Last Reconciled 05/26/25 by Marquise Zarate MD albuterol sulfate 90 mcg/actuation 2 puffs inhalation Q6H PRN celecoxib (Celebrex) 200 mg PO BID PRN 30 days fluticasone propionate 50 mcg/actuation 1 spray intranasal Q12H melatonin 3 mg PO BEDTIME PRN metoprolol ta-hydrochlorothiaz 50-25 mg 1 tab PO DAILY norgestimate-ethinyl estradiol 0.18/0.215/0.25 mg-0.035mg (28) (Tri-Linyah) 1 tab PO DAILY valacyclovir 500 mg PO Q12H 14 days Tobacco use date assessed: 05/26/25 Dental Screening Dental Screen Date: 05/26/25 Did you have a dental visit in the last 12 months?: Yes Did you have a dental problem in the last 6 months where you did not have access to dental care?: No Was dental information given to patient?: Patient has dentist HPI f/u pre-diabetes, HTN HPI Details 44 y/o female presents to f/u prediabete s, HTN. Blood pressure today 132/78, 56p. She is on metoprolol ta-hydrochlorothiazide 50-25mg daily. A1c today 5.7%. Complaints of diarrhea x1 month. Denies abd. pain or blood in stool. Notes imodeum has been managing this but does not take this everyday. [facility] Medical History Pre-diabetes Surgical History No pertinent past surgical history Family History Mother No problems noted. Father No problems noted. Social History Housing: House Alcohol intake: never Patient Tobacco Use Status: Current everyday Tobacco user Cigarette Packs Per Day: 0.5 Cigarettes Per Day: 10 Years Smoked: 16 e-Cigarette/Vaping Use: Never Used Second Hand Smoke Exposure: No service: No Current occupational status: employed Current occupation: [employer] Current occupational exposures/hazards: No Cognitive needs: No Hearing needs: No Vision needs: No Questionnaire PHQ-9 Over the last 2 weeks, how often have you been bothered by any of the following problems? 1. Little interest or pleasure in doing things: not at all 2. Feeling down, depressed, or hopeless: not at all 3. Trouble falling or staying asleep, or sleeping too much: not at all 4. Feeling tired or having little energy: not at all 5. Poor appetite or overeating: not at all 6. Feeling bad about yourself - or that you are a failure or have let yourself or your family down: not at all 7. Trouble concentrating on things, such as reading the newspaper or watching television: not at all 8. Moving or speaking so slowly that other people could have noticed. Or the opposite - being so fidgety or restless that you have been moving around a lot more than usual: not at all 9. Thoughts that you would be better off or of hurting yourself in some way: not at all Total score: 0 Depression Screening Interpretation: Negative Depression Screening Done: Yes 33532 - PHQ-9 Billing: Yes Source: Developed by Drs. Aleksandr Clemens, Almaz Levy, Otoniel Renae and colleagues, with an educational mil from [employer]. Thrive Questionnaire Date Thrive assessed: 05/26/25 I am a: Patient What is your living situation today?: I have a steady place to live Within the past 12 months, did the food you bought not last and you didn't have the money to get more?: Never true Within the past 12 months, did you worry whether your food would run out before you got money to buy more?: Never true Do you have trouble paying for medicines?: No Do you have trouble getting transportation to medical appointments?: No Do you have trouble paying your heating and electricity bill?: No Do you have trouble taking care of your child, family member or friend?: No Do you have trouble with day-to-day activities such as bathing, preparing meals, shopping, managing finances, etc.?: No Are you currently unemployed and looking for a job?: No Are you interested in more education?: No Please select the resources that you would like help with: None Currently or been in a relationship where the following occur: I choose not to answer THRIVE Score: 0 CONOR-7 AMB Questionnaire CONOR-7 Date CONOR - 7 assessed: 05/26/25 Feeling nervous, anxious, or on edge: 0 = Not at all Not being able to stop or control worryin = Not at all Worrying too much about different things: 0 = Not at all Trouble relaxin = Not at all Being so restless that it is hard to sit still: 0 = Not at all Becoming easily annoyed or irritable: 0 = Not at all Feeling afraid as if something awful might happen: 0 = Not at all Total CONOR-7 score (0-4 normal; 5-9 mild; 10-14 moderate; 15-21 severe): 0 Source: Developed by Drs. Aleksandr Clemens, Almaz Levy, Otoniel Renae and colleagues, with an educational mil from [employer]. CONOR-7 Assessment Billing CONOR-7 Assessment Tool: CONOR-7 Assessment 22798 Review of Systems Const Denies chills, Denies fatigue, Denies fever(s), Denies headache(s) and Denies weakness ENT Denies dizziness and Denies headache(s) Card Denies dyspnea Resp Denies cough, Denies dyspnea, Denies wheezing and Denies other (shortness of breath) GI Reports diarrhea Musc Denies numbness and Denies tingling Neuro Denies dizziness, Denies headache(s), Denies numbness, Denies tingling and Denies weakness Psych Denies anxiety and Denies depression Endo Denies fatigue Aller/Immun Denies wheezing Physical exam (Primary Care) Vital Signs: Last Vital Signs Temp 95.7 F L 05/26/25 09:15 Pulse 56 05/26/25 09:15 Resp 13 05/26/25 09:15 BP 132/78 05/26/25 09:15 Pulse Ox 98 05/26/25 09:15 Oxygen Delivery Method Room Air 05/26/25 09:15 BMI result Body Mass Index 38.7 Tobacco/Smoking Status: Tobacco use Status Tobacco use date assessed 05/26/25 05/26/25 09:12 Patient Tobacco Use Status Current everyday Tobacco 05/26/25 09:12 e-Cigarette/Vaping Use Never Used 05/26/25 09:12 PHQ-9: PHQ-9 Score PHQ-9: Total score 0 05/26/25 09:12 Depression Screening Interpretation: Negative Thrive Assessment: Date of Thrive Assessment Date Thrive assessed 05/26/25 05/26/25 09:12 Currently or been in a relationship where the following occur: I choose not to answer Const General: well developed; No acute distress Nutritional Appearance: well nourished Orientation/consciousness: patient oriented x3 HENMT Head: Yes normocephalic and Yes atraumatic Eyes General: appearance normal, both eyes and all related structures Pupils: Equal, round and reactive pupils present EOM: EOMs intact bilaterally Resp Effort & Inspection: normal respiratory effort Neuro General: patient oriented x3 and gait normal Cranial nerves: Yes Equal, round and reactive pupils present Psych Affect: normal affect Results AMB Hemoglobin A1c AMB Hemoglobin A1c 5.7 % Last Edit by Keisha Maldonado MA on 05/26/25 09:26 Results Reviewed Results Reviewed: Laboratory Last Values Hgb A1c (Clinic) 5.7 % (4.0-6.0) 05/26/25 09:22 Coding Level of Care Code Est Pt Level 4 (86282) Diagnoses Pre-diabetes R73.03 Essential hypertension I10 Diarrhea R19.7 Additional Codes CONOR-7 Assessment Billing - CONOR-7 Assessment Tool: CONOR-7 Assessment 24997 ([id number]) PHQ-9 - 58983 - PHQ-9 Billing: Yes ([id number]) Assessment & Plan Assessment & Plan (1) Pre-diabetes: Code(s): R73.03 - Prediabetes Category: Medical Plan: A1c improved from 5.8% to 5.7% Continue working at a diet low in sugars and starches Encouraged weight loss (2) Essential hypertension: Code(s): I10 - Essential (primary) hypertension Category: Medical Plan: Blood pressure climbed but is still in controlled range. Goal is less than 140/90 Patient also notes that she had a hectic time getting in this morning No medication changes today. Work on weight loss and a diet low in salt/sodium (3) Diarrhea: Code(s): R19.7 - Diarrhea, unspecified Category: Medical Plan: One month of loose and liquid stools She notes that Imodium has been managing this but she does not take it every day Denies blood or abdominal pain. Otherwise does not feel sick. Can continue using Imodium Check stool studies Can also try a soluble fiber tablet Hydrate well Orders: Orders AMB Hemoglobin A1c Today R73.03 - Prediabetes, Z13.9 - Encounter for screening, unspecified GI Panel Today R19.7 - Diarrhea, unspecified
[2025-05-26 09:15] VITALS: BP 132/78; PULSE 56; RESP 13; TEMP 35.4; O2SAT 98; BMI 38.7
--- OUTSIDE RECORDS SUMMARY | 2025-05-26 10:01 | XMS_ITS | Encounter Summary ---
Author Organization [facility] Address [id number] [place] [id number] Care Team Providers Care Card Player Name Role Phone Marquise Zarate MD Primary Care Provider Encounter Details Date Type Department Care Team (Latest Contact Info) Description 01/24/2025 Lab Requisition [facility] - Main Lab [address] [facility] [place] [employer] [place] [address] Marquise James MD [address] [phone] Encounter for gynecological examination (general) (routine) without abnormal findings Social History Tobacco Use Types Packs/Day Years Used Date Smoking Tobacco: Never Assessed Comments Unknown Sex and Gender Information Value Date Recorded Sex Assigned at Not on file Legal Sex Female 6:54 PM EST Gender Identity Not on file Sexual Orientation Not on file documented as of this encounter Plan of Treatment Not on file documented as of this encounter Procedures Procedure [...] LAB MICROBIOLOGY METHOD 01/24/2025 1:13 PM EDT [facility] Brushing/Spatula Cervix uteri structure / Unknown 01/21/2025 12:00 PM EDT 01/24/2025 6:39 AM EDT Marquise James MD LAB MOLECULAR DIAGNOSTICS MILLICENTChun SHARMA Final Result [facility] [address] [place] [address], * Pap smear (01/21/2025 12:00 PM EDT) Interpretation Negative for intraepithelial lesion or malignancy 01/26/2025 4:13 PM EDT [facility] at 1613 EDT General Categorization Negative 01/26/2025 4:13 PM EDT [facility] LMP 01/07/2025 01/26/2025 4:13 PM EDT [facility] Specimen Adequacy Satisfactory for evaluation, endocervical/kapadia sformation zone component present 01/26/2025 4:13 PM EDT [facility] Pap Methodology Liquid Based Pap Test 01/26/2025 4:13 PM EDT [facility] Disclaimer The Pap test is a screening test which carries an inherent false negative rate. These test results should be correlated with the patient's clinical findings and history. This Pap test was processed using an automated screening system. Technical cytopathology services provided by [facility], at [address] [place] [id number] (CLIA # [id number]/Mackenzie Fostre MD, Adaptive Physical Education Specialist.) 01/26/2025 4:13 PM EDT [facility] Console Pap Interpretation Reported 01/26/2025 4:13 PM [facility] Brushing/Spatula Cervix uteri structure / Unknown 01/21/2025 12:00 PM EDT 01/24/2025 6:39 AM EDT Marquise James MD LAB CYTOLOGY ORDERABLES Final Result [facility] [address] [place] [address], documented in this encounter Visit Diagnoses Diagnosis Encounter for gynecological examination (general) (routine) without abnormal findings documented in this encounter Care Teams Card Player Relationship Specialty Start Date End Date Marquise Zarate MD [address] [place] [address] Dr Lechuga [address] [place] [address] [place] PCP - General Family Medicine 01/24/25 documented as of this encounter
--- OUTSIDE RECORDS SUMMARY | 2025-05-26 10:01 | XMS_ITS | Clinical Summary ---
Author Organization Patient Business [facility] Address [address] [place] [phone] Care Team Providers Care Cooling Tower Operator Name Role Phone Marquise Zarate MD Primary Care Provider Social History Tobacco Use Types Packs/Day Years Used Date Smoking Tobacco: Never Assessed Comments No Sex and Gender Information Value Date Recorded Sex Assigned at Not on file Legal Sex Female 6:54 PM EST Gender Identity Not on file Sexual Orientation Not on file Obstetrics History Para Term AB IAB SAB Ectopic Multiple Livin g Live Births 2 Last Filed Vital Signs Vital Sign Reading Time Taken Comments Blood Pressure - - Pulse - - Temperature - - Respiratory Rate - - Oxygen Saturation - - Inhaled Oxygen Concentration - - Weight 106 kg (234 lb) 02/22/2025 1:06 PM EDT Height 170.2 cm (5' 7 ) 02/22/2025 1:06 PM EDT Body Mass Index 36.65 02/22/2025 1:06 PM EDT Plan of Treatment Health Maintenance Due Date Last Done Comments Hepatitis B Vaccines (1 of 3 - 19+ 3-dose series) 10/19/1999 HPV Vaccines (1 - 3-dose SCDM series) 10/19/2007 HIV Screening 07/22/2023 Hepatitis C Screening 07/22/2023 Social Influencers of Health Screening 07/22/2023 Depression Screening 06/23/2024 COVID-19 Vaccine ( season) 2025 01/31/2025, 03/28/2023, 03/26/2022, Additional history exists Breast Cancer Screening 02/22/2027 02/23/20, 07/17/2023, 06/10/2022 Cervical Cancer Screening: HPV 01/21/2030 01/21/2025 DTaP,Tdap,and Td Vaccines (3 - Td or Tdap) 01/28/2030 01/29/2020, 04/01/2013 RSV Immunization Adult Patients (1 - 1-dose 75+ series) 10/19/2055 Influenza Vaccine Completed 01/31/2025, , 03/28/2023, Additional history exists HIB Vaccines Aged Out No longer eligi [...] 49 Years) Aged Out No longer eligible based on patient's age to complete this topic RSV Immunization Patients Under 20 months Aged Out No longer eligible based on patient's age to complete this topic Varicella Vaccines Aged Out No longer eligible based on patient's age to complete this topic Procedures Procedure Name Priority Date/Time Associated Diagnosis Comments MG MAMMO DIGITAL SCREENING W CHRISTOPHER BILAT Routine 02/22/2025 1:13 PM EDT Encounter for screening mammogram for breast cancer HPV WITH REFLEX GENOTYPE Routine 01/21/2025 12:00 PM EDT Encounter for gynecological examination (general) (routine) without abnormal findings from Last 3 Months or Most Recently Relevant to Health Maintenance Results * MG Mammo Digital Screening w Christopher bilat (02/22/2025 1:13 PM EDT) Anatomical Region Laterality Modality Breast Bilateral Mammography 02/23/2025 7:04 AM EDT Impressions 02/23/2025 7:10 AM EDT No mammographic evidence of malignancy. No suspicious interval change. A negative mammogram in the presence of a clinically suspicious palpable abnormality does not preclude the possibility of malignancy or alter the indications for biopsy. ASSESSMENT: BI-RADS 1: NEGATIVE RECOMMENDATION(S): 1: Routine screening mammogram BILATERAL in 1 year. [facility] [address], [id number] -------- FINAL REPORT -------- Dictated By: Minh Beltran Dictated Date: 02/23/2025 07:04 ET Assigned Physician: Minh Beltran Reviewed and Electronically Signed By: Minh Beltran Signed Date: 02/23/2025 07:10 ET Workstation ID: [id number] Transcribed By: Self Edit Transcribed Date: 02/23/2025 07:04 ET Narrative 02/23/2025 7:10 AM EDT EXAM: SCREENING MAMMOGRAPHY, BILATERAL HISTORY: SCREENING. No additional history. COMPARISON: 07/17/23, 06/10/22 TECHNIQUE: Synthesized CC and MLO projections of each breast. Tomosynthesis of each breast in the CC and MLO projections. ADDITIONAL IMAGING: None Computer-aided detection was employed with the Quintiq AI 3-D. TISSUE DENSITY: There are scattered areas of fibroglandular density. (BI-RADS category B) FINDINGS: RIGHT BREAST: No suspicious mass. No suspicious calcification. No distortion. No additional suspicious right breast findings LEFT BREAST: No suspicious mass. No suspicious calcification. No distortion. No additional suspicious left breast findings Procedure Note Minh Beltran MD - 02/23/2025 EXAM: SCREENING MAMMOGRAPHY, BILATERAL HISTORY: SCREENING. No additional history. COMPARISON: 07/17/23, 06/10/22 TECHNIQUE: Synthesized CC and MLO projections of each breast.Tomosynthesis of each breast in the CC and MLO projections. ADDITIONAL IMAGING: None Computer-aided detection was employed with the Quintiq AI 3-D. TISSUE DENSITY: There are scattered areas of fibroglandular density.(BI-RADS category B) FINDINGS: RIGHT BREAST: No suspicious mass. No suspicious calcification. No distortion. Noadditional suspicious right breast findings LEFT BREAST: No suspicious mass. No suspicious calcification. No distortion. Noadditional suspicious left breast findings IMPRESSION: No mammographic evidence of malignancy. No suspicious interval change. A negative mammogram in the presence of a clinically suspicious palpableabnormality does not preclude the possibility of malignancy or alter theindications for biopsy. ASSESSMENT: BI-RADS 1: NEGATIVE RECOMMENDATION(S): 1: Routine screening mammogram BILATERAL in 1 year. [facility] [address] [place], [address] -------- FINAL REPORT -------- Dictated By: Minh Beltran Dictated Date: 02/23/2025 07:04 ET Assigned Physician: Minh Beltran Reviewed and Electronically Signed By: Minh Beltran Signed Date: 02/23/2025 07:10 ET Workstation ID: [id number] Transcribed By: Self Edit Transcribed Date: 02/23/2025 07:04 ET us Self Referral Sppl IMG BI PROCEDURES Final Resul t * HPV with reflex genotype (01/21/2025 12:00 PM EDT) HPV Negative Negative LAB MICROBIOLOGY METHOD 01/24/2025 1:13 PM EDT [facility] Brushing/Spatula Cervix uteri structure / Unknown 01/21/2025 12:00 PM EDT 01/24/2025 6:39 AM EDT Marquise James MD LAB MOLECULAR DIAGNOSTICS JOSE SHARMA Final Result [facility] [address] [place] [address], from Last 3 Months or Most Recently Relevant to Health Maintenance Insurance [facility] [employer] Care Teams Cooling Tower Operator Relationship Specialty Start Date End Date Marquise Zarate MD [address] [place] [address] Dr Taty [place] PCP - General Family Medicine 01/24/25
== END 2025-05-26 09:59 | disposition home or self-care (01) ==
LOC: HO.HMCFM 09:10
PROVIDERS: PCP Family Medicine; Visit Provider Family Medicine
DX: R73.03 Prediabetes (principal); I10 Essential (primary) hypertension; R19.7 Diarrhea, unspecified; Z13.9 Encounter for screening, unspecified

== ENCOUNTER → 2025-05-26 09:09 | Outpatient (BNVA) | payer OTHER, SELFPAY | PROVIDERS: PCP Family Medicine; Visit Provider Family Medicine | DX: R73.03 Prediabetes (principal); I10 Essential (primary) hypertension; R19.7 Diarrhea, unspecified | CPT/HCPCS: 83036; 96127; 99212 ==